=== PATIENT | male | born 1960 | race Caucasian/White ===

== ENCOUNTER 2022-05-20 08:45 | Outpatient (RCR) | payer OTHER, SELFPAY ==
[2022-04-29 09:48] VITALS: BP 153/79; PULSE 110; RESP 24; TEMP 36.6; BMI 53.6
--- NOTE | 2022-04-29 13:33 | PCM.WC.HP ---
History of Present Illness Date of Service: 04/29/22 Chief Complaint: Bilateral lower extremity ulcers History of Wound: Mr. Mayo is a 62-year-old who presents to the wound center due to nonhealing bilateral lower extremity ulcers. He states it started about 2 months ago. Chronic bilateral lower extremity swelling with difficulty wearing shoes and moving his lower extremities. Had some blister formation which subsequently opened up on rubbing from his shoes. Leg ulcer is said to have opened up on rubbing from his compression. Primary care physician had attempted care without any significant improvement. He denies any history of diabetes mellitus stating that his last A1c was in the fives. He sits for at least 10 hours at work taking short breaks. Currently at a BMI of 53.7. He denies chills, fever or otherwise feeling of unwell. [facility] Medical History (Updated 04/29/22 @ 13:[address] Glenys Choi MD) Atrial fibrillation Lymphedema Morbid obesity Ulcer of left foot with fat layer exposed Ulcer of left lower extremity with fat layer exposed Ulcer of right foot with fat layer exposed Ulcer of right lower extremity with fat layer exposed Home Medications calcium carb and citrat-mag ox tab PO 04/29/22 [History Last Taken Unknown] ferrous sulfate 325 mg PO DAILY 04/29/22 [History Last Taken Unknown] furosemide [Lasix] 40 mg PO DAILY 04/29/22 [History Last Taken Unknown] gabapentin 600 mg PO TID 04/29/22 [History Last Taken Unknown] naproxen 500 mg PO BID 04/29/22 [History Last Taken Unknown] potassium chloride 20 meq PO DAILY 04/29/22 [History Last Taken Unknown] sertraline mg BID 04/29/22 [History Last Taken Unknown] warfarin 5 mg PO DAILY 04/29/22 [History Last Taken Unknown] Allergy/AdvReac Type Severity Reaction Status Date / Time No Known Allergies Allergy Verified 04/29/22 10:34 Social History Smoking Status: Never smoker ROS Constitutional Constitutional: Denies fever(s), frequent falls, headache(s), increased appetite, lethargy or malaise Eyes Eyes: Denies exophthalmos, eye pain, floaters, foreign body, halo effect, irritation or itchy eyes ENT HEENT: Denies dysphagia, epistaxis, facial pain, foreign body in nose, halitosis, nasal congestion, nasal obstruction or nasal trauma Cardiovascular Cardiovascular: Denies chest pain at rest, clubbing, cold extremities, cyanosis, diaphoresis, dizziness or dyspnea at rest Respiratory/Chest Respiratory/Chest: Denies excessive phlegm production, hemoptysis, hoarseness, nail bed cyanosis, pain on inspiration, pain with cough, pale skin or ni-oral cyanosis Gastrointestinal Gastrointestinal: Denies chewing difficulty, coffee ground emesis, constipation, cramping, diarrhea or dry heaves Genitourinary Genitourinary: Denies abdominal discomfort, burning urination, flank pain, genital lesions or genital pain Musculoskeletal Musculoskeletal: Reports limited range of motion; Denies joint stiffness, joint swelling, loss of height, muscle cramps, muscle spasms or muscle weakness Integumentary Integumentary: Denies erythema, furuncle, hirsutism, jaundice, lesions, nail changes or new lesions Neurologic Neurologic: Denies burning sensations, confusion, convulsions, disequilibrium, dizziness, focal weakness, frequent falls, headache(s) or lack of coordination Psychiatric Psychiatric: Denies cognitive impairment, confusion, depression, difficulty concentrating, hallucinations, homicidal ideation, mood swings or panic attacks Endocrine Endocrinology: Denies excessive sweating, fatigue, flushing, heat intolerance, increase in ring/shoe/hat size, palpitations or polydipsia Hematologic/Lymphatic Hematologic/Lymphatic: Denies anemia, easy bleeding, easy bruising or lymphadenopathy Allergic/Immunologic Allergic/Immunologic: Denies tongue swelling, hives, urticaria, eczemia, wheezing or asthma Vital Signs Vital Signs Vital Signs: 04/29/22 09:48 Temperature 97.9 F Temperature Source Temporal Pulse Rate 110 H Respiratory Rate 24 H Blood Pressure 153/79 H Blood Pressure Mean 103 Blood Pressure Source Monitor Weight Weight: 450 lb 1.282 oz Body Mass Index (BMI) 53.6 Physical Exam Const alert, oriented x3 and no apparent distress General Appearance: cooperative, comfortable and well kempt HEENT normocephalic, head/scalp atraumatic and hearing grossly normal bilaterally Head and Scalp: normal to inspection, normocephalic and atraumatic Eyes EOMs intact bilaterally Neck full ROM General: normal visual inspection Resp normal respiratory effort and normal air movement Effort and Inspection: able to speak in complete sentences Extremity Extremity Narrative: Bilateral 3+ pitting edema. Skin Wounds: wounds noted Neuro oriented x3, CN's II-XII intact bilaterally and moves all extremities Psych mental status grossly normal, thought process normal, cooperative, affect normal and speech normal Debridement Note Debridement Note Wound debrided: Right dorsal foot Type of Debridement: Excisional debridement Anesthesia Used: 4% Lidocaine Solution Depth: Down to and including healthy tissue and in the subcutaneous layer Percentage of wound debrided: 100 Instrument Used: 5mm curette Tissue Removed: Slough and devitalized tissue Severity: Fat Layer Exposed Amount of bleeding with debridement: Mild Bleeding Controlled with: Pressure Patient tolerated procedure: Patient tolerated procedure well Post-Debridement Measurements and Additional Note: Post-Debridement Measurements/Treatment - Nurse 1 - General Ulcer Assessment Start: 04/29/22 09:39 Freq: Status: Active Protocol: KIMBERLYN Activity Type Activity Date Activity User E-Sign Co-Sign Detail Recorded Client Recorded Date Recorded By Document 04/29/22 09:48 DL [id number] 04/29/22 10:24 DL 04/29/22 09:48 WC - Today's Visit Information Type of service Initial Visit Arrival Mode Ambulatory, Walker Transfer Assistance None Patient Identification Verified (Name & Yes ) Patient Requires Transmission-Based Yes Precautions Safety Precautions Fall Prevention Height and Weight Height 6 ft 4.8 in Weight 450 lb 1.282 oz Weight in Pounds 450.1 lbs Weight Measurement Method Stated by Patient Body Mass Index (BMI) 53.6 BMI Classification Obese BSA - Lino 3.15 Vital Signs Temperature (97.8 F-99.1 F) 97.9 F Temperature Source Temporal Pulse Rate (60-100) 110 H Pulse Location Monitor Respiratory Rate (12-18) 24 H Respiratory rate source Observation Blood Pressure (90/60-120/80) 153/79 H Blood Pressure Mean 103 Source Monitor History Since Last Visit- (Skip if this is Patient's initial visit) Left Footwear Regular Shoe Right Footwear Regular Shoe Pain Scale: 0-10 Numeric Is Patient Pain Free? Yes Lower Extremity Assessment/ Foot Assessment/ Toe Nail Assessment Left -Polpliteal Pulses Palpable No -Popliteal Doppler Inaudible -Posterior Tibial Palpable No -Posterior Tibial Doppler Multiphasic -Extremity Color Hyperpigmented, Hemosiderin -Hair Growth on Legs No -Hair Growth on Toes No -Temperature of Extremity Warm -Capillary Refill Greater than 3 Seconds -Dependent Rubor Yes -Blanched when Elevated No -Lipodermatosclerosis No -Other Deformity No -Prior Foot Ulcer No -Charcot Joint Yes -Prior Amputation No -Thick Yes -Discolored No -Deformed No -Improper Length & Hygeine No Right -Polpliteal Pulses Palpable No -Popliteal Doppler Inaudible -Posterior Tibial Palpable No -Dorsalis Pedis Palpable No -Dorsalis Pedis Doppler Multiphasic -Extremity Color Red, Hyperpigmented -Hair Growth on Legs No -Hair Growth on Toes No -Temperature of Extremity Warm -Capillary Refill Greater than 3 Seconds -Dependent Rubor Yes -Blanched when Elevated No -Lipodermatosclerosis No -Other Deformity No -Prior Foot Ulcer No -Charcot Joint Yes -Prior Amputation No -Thick Yes -Discolored No -Deformed No -Improper Length & Hygeine Yes Neuropathy Assessment Feet - Top Side and Bottom <Entered> (a) Communication Assessment Preferred language Portuguese Armature [employer] Required No Able to Read Yes Able to Write Yes Communication Tools None Right Hearing Abillity Normal Left Hearing Abillity Normal Visual Assistive Devices Glasses Teaching Assessment Preferences Verbal,Written Barriers to Learning Decreased Motivation Readiness To Learn Fair Willingness to Engage in Self Management Med Activies Readiness to Engage in Self Management Med Activities Anxiety Level Calm Cooperation Cooperative Perception Coherent Interest in Health Problem Asks Questions Education Importance Acknowledges Need Does Patient Smoke tobacco or other No substances Smoking Status Never smoker Is Patient Diabetic Yes Functional Assessment Recent Decline in Ability to Perform Ambulation Culture/Evangelical/Wireless Sales Associate Cultural/Evangelical Needs that may affect No Treatment Plan Would you allow our hospital stacking machine operator to No meet you for the purpose of spiritual/ emotional support? Wireless Sales Associate to contact place of jehovah's witness No Teaching: Wound Center Diagnostic Tests Ordered -Person Taught Patient Dressing Your Wound -Person Taught Patient Compression Wraps & Stockings -Person Taught Patient *Welcome to the Wound Center -Person Taught Patient (a) 1 - + WC - Nurse 1 - General Ulcer Measurement Start: 04/29/22 09:39 Freq: Status: Active Protocol: Activity Type Activity Date Activity User E-Sign Co-Sign Detail Recorded Client Recorded Date Recorded By Document 04/29/22 09:48 DL [id number] 04/29/22 10:24 DL 04/29/22 09:48 Wound Center Nurse 1 #5 Left medial LE -Combined with other wound No -Current Size (cm) - Length 15 -Current Size (cm) - Width 14.8 -Current Size (cm) - Depth 0.1 -Total Square Cm 222.0 -Photo Taken Yes -Exudate Amt Large -Exudate Type Serosanguineous -Wound Margin Distinct, Outline Attached -Granulation Amt Medium (34-66%) -Granulation Quality Red -Necrosis Amt Medium (34-66%) -Necrotic Tissue Type Adherent Slough -Structure Exposed N/A -Texture (Ni-wound Skin Appearance) Localized Edema ,Scarring -Moisture (Ni-wound Skin Appearance) Weeping -Color (Ni-wound Skin Appearance) Erythema, Hemosiderin Staining -Temperature (Ni-wound Skin No Abnormality Appearance) (Pt Warm) -Tenderness on Palpation (Ni-wound Yes Skin Appearance) -Ulcer Cleansing Soap and Water -Foul Odor after Cleansing No -Anesthetic Used 5% Lidocaine Gel #4 L dorsal foot -Current Size (cm) - Length 1.8 -Current Size (cm) - Width 2 -Current Size (cm) - Depth 0.2 -Total Square Cm 3.6 -Photo Taken Yes -Exudate Amt Small -Exudate Type Serosanguineous -Wound Margin Distinct, Outline Attached -Granulation Amt Medium (34-66%) -Granulation Quality Red -Necrosis Amt Medium (34-66%) -Necrotic Tissue Type Adherent Slough -Structure Exposed N/A -Texture (Ni-wound Skin Appearance) Localized Edema ,Scarring -Moisture (Ni-wound Skin Appearance) Weeping -Color (Ni-wound Skin Appearance) Erythema -Temperature (Ni-wound Skin No Abnormality Appearance) (Pt Warm) -Tenderness on Palpation (Ni-wound No Skin Appearance) -Ulcer Cleansing Soap and Water -Foul Odor after Cleansing No -Anesthetic Used 4% Lidocaine Solution #3 R dorsal foot -Current Size (cm) - Length 2 -Current Size (cm) - Width 2.5 -Current Size (cm) - Depth 0.1 -Total Square Cm 5.0 -Photo Taken Yes -Exudate Amt Medium -Wound Margin Distinct, Outline Attached -Granulation Amt Medium (34-66%) -Granulation Quality Red -Necrosis Amt Medium (34-66%) -Necrotic Tissue Type Adherent Slough -Structure Exposed N/A -Texture (Ni-wound Skin Appearance) Localized Edema ,Scarring -Moisture (Ni-wound Skin Appearance) Weeping -Color (Ni-wound Skin Appearance) Erythema, Hemosiderin Staining -Temperature (Ni-wound Skin No Abnormality Appearance) (Pt Warm) -Tenderness on Palpation (Ni-wound No Skin Appearance) -Ulcer Cleansing Soap and Water -Foul Odor after Cleansing No -Anesthetic Used 4% Lidocaine Solution # R Lat LE Cluster -Current Size (cm) - Length 11.5 -Current Size (cm) - Width 6.5 -Current Size (cm) - Depth 0.1 -Total Square Cm 74.75 -Photo Taken Yes -Exudate Amt Medium -Exudate Type Serosanguineous -Wound Margin Distinct, Outline Attached -Granulation Amt Medium (34-66%) -Granulation Quality Red -Necrosis Amt Medium (34-66%) -Necrotic Tissue Type Adherent Slough -Structure Exposed N/A -Texture (Ni-wound Skin Appearance) Localized Edema ,Scarring -Moisture (Ni-wound Skin Appearance) Weeping -Color (Ni-wound Skin Appearance) Erythema, Hemosiderin Staining -Temperature (Ni-wound Skin No Abnormality Appearance) (Pt Warm) -Tenderness on Palpation (Ni-wound No Skin Appearance) -Ulcer Cleansing Soap and Water -Foul Odor after Cleansing No -Anesthetic Used 4% Lidocaine Solution #1 R giordano Med -Current Size (cm) - Length 3.3 -Current Size (cm) - Width 6.5 -Current Size (cm) - Depth 0.1 -Total Square Cm 21.45 -Photo Taken Yes -Exudate Amt Medium -Exudate Type Serosanguineous -Wound Margin Distinct, Outline Attached -Granulation Amt Medium (34-66%) -Granulation Quality Red -Necrosis Amt Medium (34-66%) -Necrotic Tissue Type Adherent Slough -Structure Exposed N/A -Texture (Ni-wound Skin Appearance) Localized Edema ,Scarring -Moisture (Ni-wound Skin Appearance) Weeping -Color (Ni-wound Skin Appearance) Erythema, Hemosiderin Staining -Temperature (Ni-wound Skin No Abnormality Appearance) (Pt Warm) -Tenderness on Palpation (Ni-wound Yes Skin Appearance) -Ulcer Cleansing Soap and Water -Foul Odor after Cleansing No -Anesthetic Used 4% Lidocaine Solution Right Calf (cm) 72 Right Ankle (cm) 45.5 Left Calf (cm) 76.6 Left Ankle (cm) 49.4 WC - Nurse 2 - General Ulcer CM Notes Start: 04/29/22 09:39 Freq: Status: Active Protocol: Activity Type Activity Date Activity User E-Sign Co-Sign Detail Recorded Client Recorded Date Recorded By Document 04/29/22 10:47 MW [id number] 04/29/22 11:04 MW Edit Result 04/29/22 10:47 MW (1) [id number] 04/29/22 11:04 MW (1) #5 Left medial LE - Debridement, SubQ, ea addt'l 20sq cm 8 => 18 or part thereof 04/29/22 10:47 Wound Center Nurse 2 #5 Left medial LE -Time 10:49 -Correct Patient Yes -Correct Side, Site, Position Yes -Correct Procedure Yes -Procedure Performed Yes -Type of Procedure Debridement -Clinical Debridement Subcutaneous -Tissue Removed Subcutaneous -Post Debridement (cm) - Length 11.5 -Post Debridement (cm) - Width 15.0 -Post Debridement (cm) - Depth 0.1 -Total Square (Post) (cm) 172.50 -Area of Debridement (cm) - Length 11.5 -Area of Debridement (cm) - Width 15.0 -Total Square (Area) (cm) 172.50 -Tunneling No -Undermining/Tunneling No -Circular Undermining No -Wound/Ulcer Outcome Not Healed -Ulcer Cleansing Rinsed/ Irrigated with Saline -Foul Odor after Cleansing No -Bioengineered Tissue No -Bleeding Controlled with Pressure -Treatment Response Procedure Tolerated Well -Offloading No -Debridement - Subq, 1st 20sq cm Yes -Debridement, SubQ, ea addt'l 20sq cm 18 or part thereof #4 L dorsal foot -Time 10:50 -Correct Patient Yes -Correct Side, Site, Position Yes -Correct Procedure Yes -Procedure Performed Yes -Type of Procedure Debridement -Clinical Debridement Subcutaneous -Tissue Removed Subcutaneous -Post Debridement (cm) - Length 1.5 -Post Debridement (cm) - Width 2.3 -Post Debridement (cm) - Depth 0.2 -Total Square (Post) (cm) 3.45 -Area of Debridement (cm) - Length 1.5 -Area of Debridement (cm) - Width 2.3 -Total Square (Area) (cm) 3.45 -Tunneling No -Undermining/Tunneling No -Circular Undermining No -Wound/Ulcer Outcome Not Healed -Ulcer Cleansing Rinsed/ Irrigated with Saline -Foul Odor after Cleansing No -Bioengineered Tissue No -Bleeding Controlled with Pressure -Treatment Response Procedure Tolerated Well -Offloading No -Debridement - Subq, 1st 20sq cm No #3 R dorsal foot -Time 10:50 -Correct Patient Yes -Correct Side, Site, Position Yes -Correct Procedure Yes -Procedure Performed Yes -Type of Procedure Debridement -Clinical Debridement Subcutaneous -Tissue Removed Subcutaneous -Post Debridement (cm) - Length 2.0 -Post Debridement (cm) - Width 3.0 -Post Debridement (cm) - Depth 0.2 -Total Square (Post) (cm) 6.00 -Area of Debridement (cm) - Length 2.0 -Area of Debridement (cm) - Width 3.0 -Total Square (Area) (cm) 6.00 -Tunneling No -Undermining/Tunneling No -Circular Undermining No -Wound/Ulcer Outcome Not Healed -Ulcer Cleansing Rinsed/ Irrigated with Saline -Foul Odor after Cleansing No -Bioengineered Tissue No -Bleeding Controlled with Pressure -Treatment Response Procedure Tolerated Well -Offloading No -Debridement - Subq, 20sq cm No # R Lat LE Cluster -Time 10:50 -Correct Patient Yes -Correct Side, Site, Position Yes -Correct Procedure Yes -Procedure Performed Yes -Type of Procedure Debridement -Clinical Debridement Subcutaneous -Tissue Removed Subcutaneous -Post Debridement (cm) - Length 12.0 -Post Debridement (cm) - Width 7.0 -Post Debridement (cm) - Depth 0.1 -Total Square (Post) (cm) 84.00 -Area of Debridement (cm) - Length 12.0 -Area of Debridement (cm) - Width 7.0 -Total Square (Area) (cm) 84.00 -Tunneling No -Undermining/Tunneling No -Circular Undermining No -Wound/Ulcer Outcome Not Healed -Ulcer Cleansing Rinsed/ Irrigated with Saline -Foul Odor after Cleansing No -Bioengineered Tissue No -Bleeding Controlled with Pressure -Treatment Response Procedure Tolerated Well -Offloading No -Debridement - Subq, 1st 20sq cm No #1 R giordano Med -Time 10:51 -Correct Patient Yes -Correct Side, Site, Position Yes -Correct Procedure Yes -Procedure Performed Yes -Type of Procedure Debridement -Clinical Debridement Subcutaneous -Tissue Removed Subcutaneous -Post Debridement (cm) - Length 7.0 -Post Debridement (cm) - Width 16.0 -Post Debridement (cm) - Depth 0.1 -Total Square (Post) (cm) 112.00 -Area of Debridement (cm) - Length 7.0 -Area of Debridement (cm) - Width 16.0 -Total Square (Area) (cm) 112.00 -Tunneling No -Undermining/Tunneling No -Circular Undermining No -Wound/Ulcer Outcome Not Healed -Ulcer Cleansing Rinsed/ Irrigated with Saline -Foul Odor after Cleansing No -Bioengineered Tissue No -Bleeding Controlled with Pressure -Treatment Response Procedure Tolerated Well -Offloading No -Debridement - Subq, 1st 20sq cm No Pain Scale: 0-10 Numeric Is Patient Pain Free? Yes WC - Nurse 3 - General Ulcer D/C NN Start: 04/29/22 09:39 Freq: Status: Active Protocol: Activity Type Activity Date Activity User E-Sign Co-Sign Detail Recorded Client Recorded Date Recorded By Document 04/29/22 11:10 [facility] [id number] 04/29/22 11:16 [facility] 04/29/22 11:10 Wound Care Nurse 3 #5 Left medial LE -Ulcer Cleansing Soap and Water -Foul Odor after Cleansing No -Primary Dressing Applied Aquacel Extra, Optilok 8x12 -Other Covering unna boot per rb rn -Aquacel Extra 2 -Optilok 8x12 1 #4 L dorsal foot -Ulcer Cleansing Soap and Water -Foul Odor after Cleansing No -Primary Dressing Applied Aquacel Extra, Optilok 6.5x10 -Other Dressing unna boot per rb rn -Aquacel Extra 0 -Optilok 6.5x10 1 #3 R dorsal foot -Ulcer Cleansing Soap and Water -Foul Odor after Cleansing No -Primary Dressing Applied Aquacel Extra -Other Dressing unna boot per rb rn -Aquacel Extra 0 # R Lat LE Cluster -Ulcer Cleansing Soap and Water -Foul Odor after Cleansing No -Primary Dressing Applied Aquacel Extra, Optilok 8x12 -Other Dressing unna boot per rb rn -Aquacel Extra 0 -Optilok 8x12 1 #1 R giordano Med -Ulcer Cleansing Soap and Water -Foul Odor after Cleansing No -Primary Dressing Applied Aquacel Extra -Other Dressing unna boot per rb rn -Aquacel Extra 0 LLE -Multi-Layered Wrap Application Unna Boot - Bilateral ($) -Unna Boots (Bilat) ($) 2 -Other XL LEGS-USED DOUBLE UNNA PRODUCT RLE -Multi-Layered Wrap Application Unna Boot - Bilateral ($) -Unna Boots (Bilat) ($) 2 -Other XL LEGS-USED DOUBLE THE PRODUCT/UNNA Pain Scale: 0-10 Numeric Is Patient Pain Free? Yes WC - Visit Discharge Discharge Condition Stable Ambulatory Status Ambulatory, Walker Accompanied by NICK WALKER Additional Wound Wound debrided: Right lower extremity lateral cluster Type of Debridement: Excisional debridement Anesthesia Used: 4% Lidocaine Solution Depth: Down to and including healthy tissue and in the subcutaneous layer Percentage of wound debrided: 100 Instrument Used: 5mm curette Tissue Removed: Slough and devitalized tissue Severity: Fat Layer Exposed Amount of bleeding with debridement: Mild Bleeding Controlled with: Pressure Patient tolerated procedure: Patient tolerated procedure well Additional Wound Wound debrided: Right lower extremity medial cluster Type of Debridement: Excisional debridement Anesthesia Used: 4% Lidocaine Solution Depth: Down to and including healthy tissue and in the subcutaneous layer Percentage of wound debrided: 100 Instrument Used: 5mm curette Tissue Removed: Slough and devitalized tissue Severity: Fat Layer Exposed Amount of bleeding with debridement: Mild Bleeding Controlled with: Pressure Patient tolerated procedure: Patient tolerated procedure well Additional Wound Wound debrided: Left foot dorsum Type of Debridement: Excisional debridement Anesthesia Used: 4% Lidocaine Solution Depth: Down to and including healthy tissue and in the subcutaneous layer Percentage of wound debrided: 100 Instrument Used: 5mm curette Tissue Removed: Slough and devitalized tissue Severity: Fat Layer Exposed Amount of bleeding with debridement: Mild Bleeding Controlled with: Pressure Patient tolerated procedure: Patient tolerated procedure well Additional Wound Wound debrided: Left lower extremity cluster Type of Debridement: Excisional debridement Anesthesia Used: 4% Lidocaine Solution Depth: Down to and including healthy tissue and in the subcutaneous layer Percentage of wound debrided: 100 Instrument Used: 5mm curette Tissue Removed: Slough and devitalized tissue Amount of bleeding with debridement: Mild Bleeding Controlled with: Pressure Patient tolerated procedure: Patient tolerated procedure well Charges/Coding Visit Charges Office Visits / Consults: 21843 OV L3 New Multi Select Codes Visit Charges Office Visit/Consults: 09570 OV L3 New Integumentary Integumentary CPT Codes: 36457 January subq tissue 20 sq cm/< and Other Procedure See Report (Add on code. Additional 18 Sq Cm debrided. Please refer to clinical note.) Assessment/Plan Assessment/Plan (1) Ulcer of left lower extremity with fat layer exposed: CODE(S): L97.922 - Non-pressure chronic ulcer of unspecified part of left lower leg with fat layer exposed (2) Ulcer of right lower extremity with fat layer exposed: CODE(S): L97.912 - Non-pressure chronic ulcer of unspecified part of right lower leg with fat layer exposed (3) Ulcer of left foot with fat layer exposed: CODE(S): L97.522 - Non-pressure chronic ulcer of other part of left foot with fat layer exposed (4) Ulcer of right foot with fat layer exposed: CODE(S): L97.512 - Non-pressure chronic ulcer of other part of right foot with fat layer exposed (5) Morbid obesity: CODE(S): E66.01 - Morbid (severe) obesity due to excess calories (6) Atrial fibrillation: CODE(S): I48.91 - Unspecified atrial fibrillation (7) Lymphedema: CODE(S): I89.0 - Lymphedema, not elsewhere classified PLAN: Chronic bilateral lower extremity edema/lymphedema. Likely source of his ulcerations. Significant drainage. Debridement done as documented above, procedure was well-tolerated. Aquacel to open areas and then Unna boot for compression. Come in on Tuesday for a nurse visit. Job modification discussed, sitting for 10 hours not beneficial. He was advised to look into a standing desk, taking multiple breaks and elevating his lower extremities when seated, he voiced understanding. Exercise as tolerated and weight loss. As above, no documented history of diabetes mellitus. Optimal protein intake which he states that he already does. Vitamin C, D and zinc. His questions were answered and he was advised to call with any further questions or concerns. Follow-up on Tuesday for a nurse visit with me in 1 week. This note was generated with [employer]ok[employer] software. It may contain incorrect words, spelling, and punctuation that were not noted in checking the note before signing.
[2022-05-03 15:26] VITALS: BP 140/87; PULSE 75; TEMP 36.1; BMI 53.6
[2022-05-06 10:29] VITALS: BP 158/102; PULSE 112; RESP 16; TEMP 36.2; BMI 53.6
--- NOTE | 2022-05-06 11:57 | PCM.WC.PN ---
History of Present Illness Date of Service: 05/06/22 Chief Complaint: Bilateral lower extremity ulcers History of Wound: Mr. Mayo is a 62-year-old who presents to the wound center due to nonhealing bilateral lower extremity ulcers. He states it started about 2 months ago. Chronic bilateral lower extremity swelling with difficulty wearing shoes and moving his lower extremities. Had some blister formation which subsequently opened up on rubbing from his shoes. Leg ulcer is said to have opened up on rubbing from his compression. Primary care physician had attempted care without any significant improvement. He denies any history of diabetes mellitus stating that his last A1c was in the fives. He sits for at least 10 hours at work taking short breaks. Currently at a BMI of 53.7. He denies chills, fever or otherwise feeling of unwell. Progress of Wound: Still has significant edema. Some improvement in wound size but some crusting also noted as well. Has used Aquacel and Unaboot. Subjective Subjective No acute concerns at this time. Objective Data Objective Data Vital Signs: Vital Signs Temp Pulse Resp BP 97.2 F L 112 H 16 158/102 H 05/06/22 10:29 05/06/22 10:29 05/06/22 10:29 05/06/22 10:29 Oxygen Delivery Method Room Air Weight: 450 lb 1.282 oz Body Mass Index (BMI) 53.6 Lab / Micro Data Micro: Microbiology 04/29/22 10:55 Wound Abcess - Left Foot Gram Stain - Final 04/29/22 10:55 Wound Abcess - Left Foot Wound Culture - Final Staphylococcus cohnii urealyti Streptococcus dysgalactiae equ Staphylococcus epidermidis 04/29/22 10:55 Wound Abcess - Left Foot Anaerobic Culture - Final No anaerobic bacteria isolated. Charges/Coding Procedures Integumentary 111xxx-113xx: [id number] January subq tissue 20 sq cm/< Add On Codes: 96110 January subq tissue add-on (x13. Additional square centimeter debrided, please refer to clinical note) Physical Exam Const alert, oriented x3 and no apparent distress General Appearance: cooperative, comfortable and well kempt HEENT normocephalic, head/scalp atraumatic and hearing grossly normal bilaterally Head and Scalp: normal to inspection, normocephalic and atraumatic Eyes EOMs intact bilaterally Neck full ROM General: normal visual inspection Resp normal respiratory effort Effort and Inspection: able to speak in complete sentences Extremity Extremity Narrative: Bilateral 3+ pitting edema. Skin Wounds: wounds noted Neuro oriented x3, CN's II-XII intact bilaterally and moves all extremities Psych mental status grossly normal, thought process normal, cooperative, affect normal and speech normal Debridement Note Debridement Note Wound debrided: Right dorsal foot Type of Debridement: Excisional debridement Anesthesia Used: 4% Lidocaine Solution Depth: Down to and including healthy tissue and in the subcutaneous layer Percentage of wound debrided: 100 Instrument Used: 5mm curette Tissue Removed: Slough and devitalized tissue Severity: Fat Layer Exposed Amount of bleeding with debridement: Mild Bleeding Controlled with: Pressure Patient tolerated procedure: Patient tolerated procedure well Post-Debridement Measurements and Additional Note: Post-Debridement Measurements/Treatment - Nurse 1 - General Ulcer Assessment Start: 04/29/22 09:39 Freq: Status: Active Protocol: KIMBERLYN Activity Type Activity Date Activity User E-sign Co-sign Detail Recorded Client Recorded Date Recorded By Document 04/29/22 09:48 DL [id number] 04/29/22 10:24 DL Document 05/03/22 15:26 KR [id number] 05/03/22 15:27 KR Document 05/06/22 10:29 AK [id number] 05/06/22 10:44 AK 04/29/22 05/03/22 05/06/22 09:48 15:26 10:29 - Today's Visit Information Type of service Initial Visit Nurse-only 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-up Visit 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 ) Arrival Mode Ambulatory, Ambulatory,Cane Ambulatory, Walker Walker Transfer Assistance None None Patient Identification Verified (Name & Yes Yes Yes ) Patient Requires Transmission-Based Yes No Precautions Safety Precautions Fall Prevention Height and Weight Height 6 ft 4.8 in Weight 450 lb 1.282 oz Weight in Pounds 450.1 lbs Weight Measurement Method Stated by Patient Body Mass Index (BMI) 53.6 53.6 53.6 BMI Classification Obese Obese Obese BSA - Lino 3.15 Vital Signs Temperature (97.8 F-99.1 F) 97.9 F 97.0 F L 97.2 F L Temperature Source Temporal Temporal Temporal Pulse Rate (60-100) 110 H 75 112 H Pulse Location Monitor Monitor Monitor Respiratory Rate (12-18) 24 H 16 Respiratory rate source Observation Observation Oxygen Delivery Method Room Air Blood Pressure (90/60-120/80) 153/79 H 140/87 H 158/102 H Blood Pressure Mean (mm Hg) 103 104 120 Source Monitor Monitor Monitor Position Semi-Fowlers Sitting Blood Pressure Location Right Arm History Since Last Visit- (Skip if this is Patient's initial visit) Have you changed medications since your No No last visit? Any new allergies or adverse reactions No No Had a fall/change in ADL's that may No No increase risk of falls Signs or symptoms of abuse and/or No No neglect since last visit Have you been in the hospital since your No No last visit? Has dressing in place as prescribed Yes No Has compression in place as prescribed Yes No Has offloadiing in place as prescribed N/A N/A Experienced any changes in pain level or No No management Left Footwear Regular Shoe Regular Shoe Regular Shoe Right Footwear Regular Shoe Regular Shoe Regular Shoe Other Footwear removed unnas to shower prior to visit Pain Scale: 0-10 Numeric Is Patient Pain Free? Yes Yes Yes Lower Extremity Assessment/ Foot Assessment/ Toe Nail Assessment Left -Polpliteal Pulses Palpable No -Popliteal Doppler Inaudible -Posterior Tibial Palpable No -Posterior Tibial Doppler Multiphasic -Extremity Color Hyperpigmented, Hemosiderin -Hair Growth on Legs No -Hair Growth on Toes No -Temperature of Extremity Warm -Capillary Refill Greater than 3 Seconds -Dependent Rubor Yes -Blanched when Elevated No -Lipodermatosclerosis No -Other Deformity No -Prior Foot Ulcer No -Charcot Joint Yes -Prior Amputation No -Thick Yes -Discolored No -Deformed No -Improper Length & Hygeine No Right -Polpliteal Pulses Palpable No -Popliteal Doppler Inaudible -Posterior Tibial Palpable No -Dorsalis Pedis Palpable No -Dorsalis Pedis Doppler Multiphasic -Extremity Color Red, Hyperpigmented -Hair Growth on Legs No -Hair Growth on Toes No -Temperature of Extremity Warm -Capillary Refill Greater than 3 Seconds -Dependent Rubor Yes -Blanched when Elevated No -Lipodermatosclerosis No -Other Deformity No -Prior Foot Ulcer No -Charcot Joint Yes -Prior Amputation No -Thick Yes -Discolored No -Deformed No -Improper Length & Hygeine Yes Neuropathy Assessment Feet - Top Side and Bottom <Entered> (a) Communication Assessment Preferred language Kiswahili Sound Effects Manager Required No Able to Read Yes Able to Write Yes Communication Tools None Right Hearing Abillity Normal Left Hearing Abillity Normal Visual Assistive Devices Glasses Teaching Assessment Preferences Verbal,Written Barriers to Learning Decreased Motivation Readiness To Learn Fair Willingness to Engage in Self Management Med Activies Readiness to Engage in Self Management Med Activities Anxiety Level Calm Cooperation Cooperative Perception Coherent Interest in Health Problem Asks Questions Education Importance Acknowledges Need Does Patient Smoke tobacco or other No substances Smoking Status Never smoker Is Patient Diabetic Yes Functional Assessment Recent Decline in Ability to Perform Ambulation 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 Pipe Setter to contact place of evangelical No Teaching: Wound Center Diagnostic Tests Ordered -Person Taught Patient Dressing Your Wound -Person Taught Patient Compression Wraps & Stockings -Person Taught Patient *Welcome to the Wound Center -Person Taught Patient (a) 1 - + WC - Nurse 1 - General Ulcer Measurement Start: 04/29/22 09:39 Freq: Status: Active Protocol: Activity Type Activity Date Activity User E-sign Co-sign Detail Recorded Client Recorded Date Recorded By Document 04/29/22 09:48 DL [id number] 04/29/22 10:24 DL Document 05/06/22 10:29 [place] [id number] 05/06/22 10:44 AK 04/29/22 05/06/22 09:48 10:29 Wound Center Nurse 1 #5 Left medial LE -Combined with other wound No No -Current Size (cm) - Length 15 14 -Current Size (cm) - Width 14.8 14 -Current Size (cm) - Depth 0.1 0.1 -Total Square Cm 222.0 196 -Photo Taken Yes No -Epithelialization None Present -Tunneling No -Undermining/Tunneling No -Circular Undermining No -Exudate Amt Large Medium -Exudate Type Serosanguineous Serosanguineous -Wound Margin Distinct, Distinct, Outline Outline Attached Attached -Granulation Amt Medium (34-66%) None Present (0 %) -Granulation Quality Red -Slough/Fibrin Yes -Necrosis Amt Medium (34-66%) Large (67-100%) -Necrotic Tissue Type Adherent Slough Adherent Slough -Structure Exposed N/A -Texture (Ni-wound Skin Appearance) Localized Edema Assessed, ,Scarring Scarring -Moisture (Ni-wound Skin Appearance) Weeping Assessed -Color (Ni-wound Skin Appearance) Erythema, Assessed, Hemosiderin Erythema Staining -Temperature (Ni-wound Skin No Abnormality No Abnormality Appearance) (Pt Warm) (Pt Warm) -Tenderness on Palpation (Ni-wound Yes No Skin Appearance) -Ulcer Cleansing Soap and Water Soap and Water -Foul Odor after Cleansing No No -Anesthetic Used 5% Lidocaine 4% Lidocaine Gel Solution #4 L dorsal foot -Combined with other wound No -Current Size (cm) - Length 1.8 1.4 -Current Size (cm) - Width 2 1.6 -Current Size (cm) - Depth 0.2 0.2 -Total Square Cm 3.6 2.24 -Photo Taken Yes No -Epithelialization None Present -Tunneling No -Undermining/Tunneling No -Circular Undermining No -Exudate Amt Small Medium -Exudate Type Serosanguineous Serosanguineous -Wound Margin Distinct, Distinct, Outline Outline Attached Attached -Granulation Amt Medium (34-66%) Medium (34-66%) -Granulation Quality Red Red -Slough/Fibrin Yes -Necrosis Amt Medium (34-66%) Medium (34-66%) -Necrotic Tissue Type Adherent Slough Adherent Slough -Structure Exposed N/A -Texture (Ni-wound Skin Appearance) Localized Edema Assessed, ,Scarring Scarring -Moisture (Ni-wound Skin Appearance) Weeping Assessed -Color (Ni-wound Skin Appearance) Erythema Assessed, Erythema -Temperature (Ni-wound Skin No Abnormality No Abnormality Appearance) (Pt Warm) (Pt Warm) -Tenderness on Palpation (Ni-wound No No Skin Appearance) -Ulcer Cleansing Soap and Water Soap and Water -Foul Odor after Cleansing No No -Anesthetic Used 4% Lidocaine 4% Lidocaine Solution Solution #3 R dorsal foot -Combined with other wound No -Current Size (cm) - Length 2 1.5 -Current Size (cm) - Width 2.5 2 -Current Size (cm) - Depth 0.1 0.1 -Total Square Cm 5.0 3.0 -Photo Taken Yes No -Epithelialization Small 1-33% -Tunneling No -Undermining/Tunneling No -Circular Undermining No -Exudate Amt Medium Medium -Exudate Type Serosanguineous -Wound Margin Distinct, Distinct, Outline Outline Attached Attached -Granulation Amt Medium (34-66%) Medium (34-66%) -Granulation Quality Red Red -Slough/Fibrin Yes -Necrosis Amt Medium (34-66%) Medium (34-66%) -Necrotic Tissue Type Adherent Slough Adherent Slough -Structure Exposed N/A -Texture (Ni-wound Skin Appearance) Localized Edema Assessed, ,Scarring Scarring -Moisture (Ni-wound Skin Appearance) Weeping Assessed -Color (Ni-wound Skin Appearance) Erythema, Assessed, Hemosiderin Erythema Staining -Temperature (Ni-wound Skin No Abnormality No Abnormality Appearance) (Pt Warm) (Pt Warm) -Tenderness on Palpation (Ni-wound No No Skin Appearance) -Ulcer Cleansing Soap and Water Not Cleansed -Foul Odor after Cleansing No No -Anesthetic Used 4% Lidocaine 4% Lidocaine Solution Solution #2 R Lat LE Cluster -Combined with other wound No -Current Size (cm) - Length 11.5 11.4 -Current Size (cm) - Width 6.5 1.5 -Current Size (cm) - Depth 0.1 0.1 -Total Square Cm 74.75 17.10 -Photo Taken Yes No -Epithelialization None Present -Tunneling No -Undermining/Tunneling No -Circular Undermining No -Exudate Amt Medium None Present -Exudate Type Serosanguineous -Wound Margin Distinct, Distinct, Outline Outline Attached Attached -Granulation Amt Medium (34-66%) None Present (0 %) -Granulation Quality Red -Slough/Fibrin Yes -Necrosis Amt Medium (34-66%) Large (67-100%) -Necrotic Tissue Type Adherent Slough Eschar -Structure Exposed N/A -Texture (Ni-wound Skin Appearance) Localized Edema Assessed, ,Scarring Scarring -Moisture (Ni-wound Skin Appearance) Weeping Assessed -Color (Ni-wound Skin Appearance) Erythema, Assessed Hemosiderin Staining -Temperature (Ni-wound Skin No Abnormality No Abnormality Appearance) (Pt Warm) (Pt Warm) -Tenderness on Palpation (Ni-wound No No Skin Appearance) -Ulcer Cleansing Soap and Water Soap and Water -Foul Odor after Cleansing No No -Anesthetic Used 4% Lidocaine 4% Lidocaine Solution Solution #1 R giordano Med -Combined with other wound No -Current Size (cm) - Length 3.3 2.5 -Current Size (cm) - Width 6.5 5.4 -Current Size (cm) - Depth 0.1 0.1 -Total Square Cm 21.45 13.50 -Photo Taken Yes No -Epithelialization None Present -Tunneling No -Undermining/Tunneling No -Circular Undermining No -Exudate Amt Medium Medium -Exudate Type Serosanguineous Serosanguineous -Wound Margin Distinct, Distinct, Outline Outline Attached Attached -Granulation Amt Medium (34-66%) Medium (34-66%) -Granulation Quality Red Red -Slough/Fibrin Yes -Necrosis Amt Medium (34-66%) Medium (34-66%) -Necrotic Tissue Type Adherent Slough Adherent Slough -Structure Exposed N/A -Texture (Ni-wound Skin Appearance) Localized Edema Assessed, ,Scarring Scarring -Moisture (Ni-wound Skin Appearance) Weeping Assessed -Color (Ni-wound Skin Appearance) Erythema, Assessed, Hemosiderin Erythema Staining -Temperature (Ni-wound Skin No Abnormality No Abnormality Appearance) (Pt Warm) (Pt Warm) -Tenderness on Palpation (Ni-wound Yes No Skin Appearance) -Ulcer Cleansing Soap and Water Soap and Water -Foul Odor after Cleansing No No -Anesthetic Used 4% Lidocaine 4% Lidocaine Solution Solution Lower Limb Edema Present Yes Right Calf (cm) 72 72 Right Ankle (cm) 45.5 42 Left Calf (cm) 76.6 74 Left Ankle (cm) 49.4 49 WC - Nurse 2 - General Ulcer CM Notes Start: 04/29/22 09:39 Freq: Status: Active Protocol: Activity Type Activity Date Activity User E-sign Co-sign Detail Recorded Client Recorded Date Recorded By Document 04/29/22 10:47 MW [id number] 04/29/22 11:04 MW Edit Result 04/29/22 10:47 MW (1) [id number] 04/29/22 11:04 MW Document 05/06/22 10:49 MW [id number] 05/06/22 11:09 MW (1) #5 Left medial LE - Debridement, SubQ, ea addt'l 20sq cm 8 => 18 or part thereof 06 06 10:47 10:49 Wound Center Nurse 2 #5 Left medial LE -Time 10:49 10:51 -Correct Patient Yes Yes -Correct Side, Site, Position Yes Yes -Correct Procedure Yes Yes -Procedure Performed Yes Yes -Type of Procedure Debridement Debridement -Clinical Debridement Subcutaneous Subcutaneous -Tissue Removed Subcutaneous Subcutaneous -Post Debridement (cm) - Length 11.5 11.0 -Post Debridement (cm) - Width 15.0 15.0 -Post Debridement (cm) - Depth 0.1 0.1 -Total Square (Post) (cm) 172.50 165.00 -Area of Debridement (cm) - Length 11.5 11.0 -Area of Debridement (cm) - Width 15.0 15.0 -Total Square (Area) (cm) 172.50 165.00 -Tunneling No No -Undermining/Tunneling No No -Circular Undermining No No -Wound/Ulcer Outcome Not Healed Not Healed -Ulcer Cleansing Rinsed/ Rinsed/ Irrigated with Irrigated with Saline Saline -Foul Odor after Cleansing No No -Bioengineered Tissue No No -Bleeding Controlled with Pressure Pressure -Treatment Response Procedure Procedure Tolerated Well Tolerated Well -Offloading No No -Debridement - Subq, 1st 20sq cm Yes Yes -Debridement, SubQ, ea addt'l 20sq cm 18 13 or part thereof #4 L dorsal foot -Time 10:50 10:52 -Correct Patient Yes Yes -Correct Side, Site, Position Yes Yes -Correct Procedure Yes Yes -Procedure Performed Yes Yes -Type of Procedure Debridement Debridement -Clinical Debridement Subcutaneous Subcutaneous -Tissue Removed Subcutaneous Subcutaneous -Post Debridement (cm) - Length 1.5 2.1 -Post Debridement (cm) - Width 2.3 1.5 -Post Debridement (cm) - Depth 0.2 0.1 -Total Square (Post) (cm) 3.45 3.15 -Area of Debridement (cm) - Length 1.5 2.1 -Area of Debridement (cm) - Width 2.3 1.5 -Total Square (Area) (cm) 3.45 3.15 -Tunneling No No -Undermining/Tunneling No No -Circular Undermining No No -Wound/Ulcer Outcome Not Healed Not Healed -Ulcer Cleansing Rinsed/ Rinsed/ Irrigated with Irrigated with Saline Saline -Foul Odor after Cleansing No No -Bioengineered Tissue No No -Bleeding Controlled with Pressure Pressure -Treatment Response Procedure Procedure Tolerated Well Tolerated Well -Offloading No No -Debridement - Subq, 1st 20sq cm No No #3 R dorsal foot -Time 10:50 10:52 -Correct Patient Yes Yes -Correct Side, Site, Position Yes Yes -Correct Procedure Yes Yes -Procedure Performed Yes Yes -Type of Procedure Debridement Debridement -Clinical Debridement Subcutaneous Subcutaneous -Tissue Removed Subcutaneous Subcutaneous -Post Debridement (cm) - Length 2.0 1.8 -Post Debridement (cm) - Width 3.0 2.4 -Post Debridement (cm) - Depth 0.2 0.1 -Total Square (Post) (cm) 6.00 4.32 -Area of Debridement (cm) - Length 2.0 1.8 -Area of Debridement (cm) - Width 3.0 2.4 -Total Square (Area) (cm) 6.00 4.32 -Tunneling No No -Undermining/Tunneling No No -Circular Undermining No No -Wound/Ulcer Outcome Not Healed Not Healed -Ulcer Cleansing Rinsed/ Rinsed/ Irrigated with Irrigated with Saline Saline -Foul Odor after Cleansing No No -Bioengineered Tissue No No -Bleeding Controlled with Pressure Pressure -Treatment Response Procedure Procedure Tolerated Well Tolerated Well -Offloading No No -Debridement - Subq, 1st 20sq cm No No #2 R Lat LE Cluster -Time 10:50 10:53 -Correct Patient Yes Yes -Correct Side, Site, Position Yes Yes -Correct Procedure Yes Yes -Procedure Performed Yes Yes -Type of Procedure Debridement Debridement -Clinical Debridement Subcutaneous Subcutaneous -Tissue Removed Subcutaneous Subcutaneous -Post Debridement (cm) - Length 12.0 11.0 -Post Debridement (cm) - Width 7.0 4.5 -Post Debridement (cm) - Depth 0.1 0.1 -Total Square (Post) (cm) 84.00 49.50 -Area of Debridement (cm) - Length 12.0 11.0 -Area of Debridement (cm) - Width 7.0 4.5 -Total Square (Area) (cm) 84.00 49.50 -Tunneling No No -Undermining/Tunneling No No -Circular Undermining No No -Wound/Ulcer Outcome Not Healed Not Healed -Ulcer Cleansing Rinsed/ Rinsed/ Irrigated with Irrigated with Saline Saline -Foul Odor after Cleansing No No -Bioengineered Tissue No No -Bleeding Controlled with Pressure Pressure -Treatment Response Procedure Procedure Tolerated Well Tolerated Well -Offloading No No -Debridement - Subq, 1st 20sq cm No No #1 R giordano Med -Time 10:51 10:54 -Correct Patient Yes Yes -Correct Side, Site, Position Yes Yes -Correct Procedure Yes Yes -Procedure Performed Yes Yes -Type of Procedure Debridement Debridement -Clinical Debridement Subcutaneous Subcutaneous -Tissue Removed Subcutaneous Subcutaneous -Post Debridement (cm) - Length 7.0 3.0 -Post Debridement (cm) - Width 16.0 15.0 -Post Debridement (cm) - Depth 0.1 0.1 -Total Square (Post) (cm) 112.00 45.00 -Area of Debridement (cm) - Length 7.0 3.0 -Area of Debridement (cm) - Width 16.0 15.0 -Total Square (Area) (cm) 112.00 45.00 -Tunneling No No -Undermining/Tunneling No No -Circular Undermining No No -Wound/Ulcer Outcome Not Healed Not Healed -Ulcer Cleansing Rinsed/ Rinsed/ Irrigated with Irrigated with Saline Saline -Foul Odor after Cleansing No No -Bioengineered Tissue No No -Bleeding Controlled with Pressure Pressure -Treatment Response Procedure Procedure Tolerated Well Tolerated Well -Offloading No No -Debridement - Subq, 1st 20sq cm No No Pain Scale: 0-10 Numeric Is Patient Pain Free? Yes Yes WC - Nurse 3 - General Ulcer D/C NN Start: 04/29/22 09:39 Freq: Status: Active Protocol: Activity Type Activity Date Activity User E-sign Co-sign Detail Recorded Client Recorded Date Recorded By Document 04/29/22 11:10 [facility] [id number] 04/29/22 11:16 [facility] Document 05/03/22 15:26 KR [id number] 05/03/22 15:27 KR Edit Result 05/03/22 15:26 KR (1) [id number] 05/03/22 15:45 PL (1) RLE - Multi-Layered Wrap Application => Unna Boot - => Bilateral ($) - Unna Boots (Bilat) ($) => 2 04/29/22 05/03/22 11:10 15:26 Wound Care Nurse 3 #5 Left medial LE -Ulcer Cleansing Soap and Water -Foul Odor after Cleansing No -Primary Dressing Applied Aquacel Extra, Aquacel AG 4x4 Optilok 8x12 -Primary Dressing Covered/Secured with Dry Gauze, Secured with Tape -Other Covering unna boot per rb rn -Aquacel Extra 2 -Aquacel AG 4x4 1 -Optilok 8x12 1 #4 L dorsal foot -Ulcer Cleansing Soap and Water -Foul Odor after Cleansing No -Primary Dressing Applied Aquacel Extra, Optilok 6.5x10 -Other Dressing unna boot per rb rn -Aquacel Extra 0 -Optilok 6.5x10 1 #3 R dorsal foot -Ulcer Cleansing Soap and Water -Foul Odor after Cleansing No -Primary Dressing Applied Aquacel Extra -Other Dressing unna boot per rb rn -Aquacel Extra 0 #2 R Lat LE Cluster -Ulcer Cleansing Soap and Water -Foul Odor after Cleansing No -Primary Dressing Applied Aquacel Extra, Optilok 8x12 -Other Dressing unna boot per rb rn -Aquacel Extra 0 -Optilok 8x12 1 #1 R giordano Med -Ulcer Cleansing Soap and Water -Foul Odor after Cleansing No -Primary Dressing Applied Aquacel Extra -Other Dressing unna boot per rb rn -Aquacel Extra 0 LLE -Multi-Layered Wrap Application Unna Boot - Unna Boot - Bilateral ($) Bilateral ($) -Unna Boots (Bilat) ($) 2 2 -Other XL LEGS-USED DOUBLE UNNA PRODUCT RLE -Multi-Layered Wrap Application Unna Boot - Unna Boot - Bilateral ($) Bilateral ($) -Unna Boots (Bilat) ($) 2 2 -Other XL LEGS-USED DOUBLE THE PRODUCT/UNNA Vital Signs Temperature (97.8 F-99.1 F) 97.0 F L Temperature Source Temporal Pulse Rate (60-100) 75 Pulse Location Monitor Blood Pressure (90/60-120/80) 140/87 H Blood Pressure Mean (mm Hg) 104 Source Monitor Position Semi-Fowlers Blood Pressure Location Right Arm Pain Scale: 0-10 Numeric Is Patient Pain Free? Yes Yes WC - Visit Discharge Discharge Condition Stable Stable Ambulatory Status Ambulatory, Ambulatory,Cane Walker Transportation Private Auto Accompanied by NICK WALKER Additional Wound Wound debrided: Right lateral cluster Type of Debridement: Excisional debridement Anesthesia Used: 4% Lidocaine Solution Depth: Down to and including healthy tissue Percentage of wound debrided: 100 Instrument Used: 5mm curette Tissue Removed: Slough and devitalized tissue Severity: Fat Layer Exposed Amount of bleeding with debridement: Mild Bleeding Controlled with: Pressure Patient tolerated procedure: Patient tolerated procedure well Additional Wound Wound debrided: Right medial cluster Type of Debridement: Excisional debridement Anesthesia Used: 4% Lidocaine Solution Depth: Down to and including healthy tissue and in the subcutaneous layer Percentage of wound debrided: 100 Instrument Used: 5mm curette Severity: Fat Layer Exposed Amount of bleeding with debridement: Mild Bleeding Controlled with: Pressure Patient tolerated procedure: Patient tolerated procedure well Additional Wound Wound debrided: Left dorsal foot Type of Debridement: Excisional debridement Anesthesia Used: 4% Lidocaine Solution Depth: Down to and including healthy tissue and in the subcutaneous layer Percentage of wound debrided: 100 Instrument Used: 5mm curette Tissue Removed: Slough and devitalized tissue Severity: Fat Layer Exposed Amount of bleeding with debridement: Mild Bleeding Controlled with: Pressure Patient tolerated procedure: Patient tolerated procedure well Additional Wound Wound debrided: Left lower extremity cluster Type of Debridement: Excisional debridement Anesthesia Used: 4% Lidocaine Solution Depth: Down to and including healthy tissue and in the subcutaneous layer Percentage of wound debrided: 100 Instrument Used: 5mm curette Severity: Fat Layer Exposed Amount of bleeding with debridement: Mild Bleeding Controlled with: Pressure Patient tolerated procedure: Patient tolerated procedure well Assessment/Plan Assessment/Plan (1) Ulcer of left lower extremity with fat layer exposed: CODE(S): L97.922 - Non-pressure chronic ulcer of unspecified part of left lower leg with fat layer exposed (2) Ulcer of right lower extremity with fat layer exposed: CODE(S): L97.912 - Non-pressure chronic ulcer of unspecified part of right lower leg with fat layer exposed (3) Ulcer of left foot with fat layer exposed: CODE(S): L97.522 - Non-pressure chronic ulcer of other part of left foot with fat layer exposed (4) Ulcer of right foot with fat layer exposed: CODE(S): L97.512 - Non-pressure chronic ulcer of other part of right foot with fat layer exposed (5) Morbid obesity: CODE(S): E66.01 - Morbid (severe) obesity due to excess calories (6) Atrial fibrillation: CODE(S): I48.91 - Unspecified atrial fibrillation (7) Lymphedema: CODE(S): I89.0 - Lymphedema, not elsewhere classified PLAN: Plan Some improvement noted however there also appears to have been some crusting. Debridement done as documented above, procedure was well-tolerated. Switch to Fibracol to open areas with Adaptic over top. 3M wrap for edema management. Coming in Tuesday for a nurse visit. Job modification has been discussed discussed, sitting for 10 hours not beneficial. He has been advised to look into a standing desk, taking multiple breaks and elevating his lower extremities when seated, he voiced understanding. Exercise as tolerated and weight loss. Optimal protein intake which he states that he already does. Vitamin C, D and zinc. His questions were answered and he was advised to call with any further questions or concerns. Follow-up in a week with me. This note was generated with ReplySend dictation software. It may contain incorrect words, spelling, and punctuation that were not noted in checking the note before signing.
[2022-05-10 12:01] VITALS: BP 149/77; PULSE 81; RESP 18; TEMP 36.9; BMI 53.6
[2022-05-13 09:36] VITALS: BP 146/91; PULSE 94; RESP 20; TEMP 36.1; BMI 53.6
--- NOTE | 2022-05-13 12:59 | PN.PCM_ITS ---
History of Present Illness Date of Service: 05/13/22 Chief Complaint: Bilateral lower extremity ulcers History of Wound: Mr. Mayo is a 62-year-old who presents to the wound center due to nonhealing bilateral lower extremity ulcers. He states it started about 2 months ago. Chronic bilateral lower extremity swelling with difficulty wearing shoes and moving his lower extremities. Had some blister formation which subsequently opened up on rubbing from his shoes. Leg ulcer is said to have opened up on rubbing from his compression. Primary care physician had attempted care without any significant improvement. He denies any history of diabetes mellitus stating that his last A1c was in the fives. He sits for at least 10 hours at work taking short breaks. Currently at a BMI of 53.7. He denies chills, fever or otherwise feeling of unwell. Progress of Wound: Improvement in ulcerations and edema. Tolerated 3M wrap well. Subjective Subjective No new concerns at this time. Objective Data Objective Data Vital Signs: Vital Signs Temp Pulse Resp BP 97 F L 94 20 H 146/91 H 05/13/22 09:36 05/13/22 09:36 05/13/22 09:36 05/13/22 09:36 Oxygen Delivery Method Room Air Weight: 450 lb 1.282 oz Body Mass Index (BMI) 53.6 Lab / Micro Data Micro: Microbiology 04/29/22 10:55 Wound Abcess - Left Foot Gram Stain - Final 04/29/22 10:55 Wound Abcess - Left Foot Wound Culture - Final Staphylococcus cohnii urealyti Streptococcus dysgalactiae equ Staphylococcus epidermidis 04/29/22 10:55 Wound Abcess - Left Foot Anaerobic Culture - Final No anaerobic bacteria isolated. Charges/Coding Procedures Integumentary 111xxx-113xx: 15416 January subq tissue 20 sq cm/< Add On Codes: 13391 January subq tissue add-on (x13. Additional square centimeter debrided, please refer to clinical note.) Physical Exam Const alert, oriented x3 and no apparent distress General Appearance: cooperative, comfortable and well kempt HEENT normocephalic, head/scalp atraumatic and hearing grossly normal bilaterally Head and Scalp: normal to inspection, normocephalic and atraumatic Eyes EOMs intact bilaterally Neck full ROM General: normal visual inspection Resp normal respiratory effort Effort and Inspection: able to speak in complete sentences Extremity Extremity Narrative: Bilateral 3+ pitting edema. Skin Wounds: wounds noted Neuro oriented x3, CN's II-XII intact bilaterally and moves all extremities Psych mental status grossly normal, thought process normal, cooperative, affect normal and speech normal Debridement Note Debridement Note Wound debrided: Right foot Type of Debridement: Excisional debridement Anesthesia Used: 4% Lidocaine Solution Depth: Down to and including healthy tissue and in the subcutaneous layer Percentage of wound debrided: 100 Instrument Used: 5mm curette Tissue Removed: Slough and devitalized tissue Severity: Fat Layer Exposed Amount of bleeding with debridement: Mild Bleeding Controlled with: Pressure Patient tolerated procedure: Patient tolerated procedure well Post-Debridement Measurements and Additional Note: Post-Debridement Measurements/Treatment - Nurse 1 - General Ulcer Assessment Start: 04/29/22 09:39 Freq: Status: Active Protocol: KIMBERLYN Activity Type Activity Date Activity User E-sign Co-sign Detail Recorded Client Recorded Date Recorded By Document 04/29/22 09:48 DL [id number] 04/29/22 10:24 DL Document 05/03/22 15:26 KR [id number] 05/03/22 15:27 KR Document 05/06/22 10:29 AK [id number] 05/06/22 10:44 AK Document 05/10/22 12:01 DL [id number] 05/10/22 12:13 DL Document 05/13/22 09:36 MT [id number] 05/13/22 09:47 MT 04/29/22 05/03/22 05/06/22 09:48 15:26 10:29 - Today's Visit Information Type of service Initial Visit Nurse-only Follow-up Visit Visit (Physician/ORDER PLANNER ) Arrival Mode Ambulatory, Ambulatory,Cane Ambulatory, Walker Walker Transfer Assistance None None Accompanied by Patient Identification Verified (Name & Yes Yes Yes ) Patient Requires Transmission-Based Yes No Precautions Safety Precautions Fall Prevention Height and Weight Height 6 ft 4.8 in Weight 450 lb 1.282 oz Weight in Pounds 450.1 lbs Weight Measurement Method Stated by Patient Body Mass Index (BMI) 53.6 53.6 53.6 BMI Classification Obese Obese Obese BSA - Lino 3.15 Vital Signs Temperature (97.8 F-99.1 F) 97.9 F 97.0 F L 97.2 F L Temperature Source Temporal Temporal Temporal Pulse Rate (60-100) 110 H 75 112 H Pulse Location Monitor Monitor Monitor Respiratory Rate (12-18) 24 H 16 Respiratory rate source Observation Observation Oxygen Delivery Method Room Air Blood Pressure (90/60-120/80) 153/79 H 140/87 H 158/102 H Blood Pressure Mean (mm Hg) 103 104 120 Source Monitor Monitor Monitor Position Semi-Fowlers Sitting Blood Pressure Location Right Arm History Since Last Visit- (Skip if this is Patient's initial visit) Have you changed medications since your No No last visit? Any new allergies or adverse reactions No No Had a fall/change in ADL's that may No No increase risk of falls Signs or symptoms of abuse and/or No No neglect since last visit Have you been in the hospital since your No No last visit? Has dressing in place as prescribed Yes No Has compression in place as prescribed Yes No Has offloadiing in place as prescribed N/A N/A Experienced any changes in pain level or No No management Left Footwear Regular Shoe Regular Shoe Regular Shoe Right Footwear Regular Shoe Regular Shoe Regular Shoe Other Footwear removed unnas to shower prior to visit Pain Scale: 0-10 Numeric Is Patient Pain Free? Yes Yes Yes Lower Extremity Assessment/ Foot Assessment/ Toe Nail Assessment Left -Polpliteal Pulses Palpable No -Popliteal Doppler Inaudible -Posterior Tibial Palpable No -Posterior Tibial Doppler Multiphasic -Extremity Color Hyperpigmented, Hemosiderin -Hair Growth on Legs No -Hair Growth on Toes No -Temperature of Extremity Warm -Capillary Refill Greater than 3 Seconds -Dependent Rubor Yes -Blanched when Elevated No -Lipodermatosclerosis No -Other Deformity No -Prior Foot Ulcer No -Charcot Joint Yes -Prior Amputation No -Thick Yes -Discolored No -Deformed No -Improper Length & Hygeine No Right -Polpliteal Pulses Palpable No -Popliteal Doppler Inaudible -Posterior Tibial Palpable No -Dorsalis Pedis Palpable No -Dorsalis Pedis Doppler Multiphasic -Extremity Color Red, Hyperpigmented -Hair Growth on Legs No -Hair Growth on Toes No -Temperature of Extremity Warm -Capillary Refill Greater than 3 Seconds -Dependent Rubor Yes -Blanched when Elevated No -Lipodermatosclerosis No -Other Deformity No -Prior Foot Ulcer No -Charcot Joint Yes -Prior Amputation No -Thick Yes -Discolored No -Deformed No -Improper Length & Hygeine Yes Neuropathy Assessment Feet - Top Side and Bottom <Entered> (a) Communication Assessment Preferred language [place] Oil Burner Technician Required No Able to Read Yes Able to Write Yes Communication Tools None Right Hearing Abillity Normal Left Hearing Abillity Normal Visual Assistive Devices Glasses Teaching Assessment Preferences Verbal,Written Barriers to Learning Decreased Motivation Readiness To Learn Fair Willingness to Engage in Self Management Med Activies Readiness to Engage in Self Management Med Activities Anxiety Level Calm Cooperation Cooperative Perception Coherent Interest in Health Problem Asks Questions Education Importance Acknowledges Need Does Patient Smoke tobacco or other No substances Smoking Status Never smoker Is Patient Diabetic Yes Functional Assessment Recent Decline in Ability to Perform Ambulation Culture/Voodoo/Assembler Musical Instruments Cultural/Voodoo Needs that may affect No Treatment Plan Would you allow our [facility] form coverer to No meet you for the purpose of spiritual/ emotional support? Assembler Musical Instruments to contact place of restorationism No Teaching: Wound Center Diagnostic Tests Ordered -Person Taught Patient Dressing Your Wound -Person Taught Patient Compression Wraps & Stockings -Person Taught Patient *Welcome to the Wound Center -Person Taught Patient 05/10/22 05/13/22 12:01 09:36 WC - Today's Visit Information Type of service Nurse-only Follow-up Visit Visit (Physician/ORDER PLANNER ) Arrival Mode Ambulatory, Walker Walker Transfer Assistance None Accompanied by self Patient Identification Verified (Name & Yes Yes ) Patient Requires Transmission-Based No Precautions Safety Precautions Fall Prevention Fall Prevention Height and Weight Height Weight Weight in Pounds Weight Measurement Method Body Mass Index (BMI) 53.6 53.6 BMI Classification Obese Obese BSA - Lino Vital Signs Temperature (97.8 F-99.1 F) 98.5 F 97 F L Temperature Source Temporal Temporal Pulse Rate (60-100) 81 94 Pulse Location Monitor Monitor Respiratory Rate (12-18) 18 20 H Respiratory rate source Observation Observation Oxygen Delivery Method Room Air Blood Pressure (90/60-120/80) 149/77 H 146/91 H Blood Pressure Mean (mm Hg) 101 109 Source Monitor Monitor Position Sitting Blood Pressure Location Left Forearm History Since Last Visit- (Skip if this is Patient's initial visit) Have you changed medications since your No last visit? Any new allergies or adverse reactions No Had a fall/change in ADL's that may No increase risk of falls Signs or symptoms of abuse and/or No neglect since last visit Have you been in the hospital since your No last visit? Has dressing in place as prescribed Yes Yes Has compression in place as prescribed Yes Yes Has offloadiing in place as prescribed N/A Yes Experienced any changes in pain level or No Yes management Left Footwear Regular Shoe Right Footwear Regular Shoe Other Footwear Pain Scale: 0-10 Numeric Is Patient Pain Free? Yes Yes Lower Extremity Assessment/ Foot Assessment/ Toe Nail Assessment Left -Polpliteal Pulses Palpable -Popliteal Doppler -Posterior Tibial Palpable -Posterior Tibial Doppler -Extremity Color -Hair Growth on Legs -Hair Growth on Toes -Temperature of Extremity -Capillary Refill -Dependent Rubor -Blanched when Elevated -Lipodermatosclerosis -Other Deformity -Prior Foot Ulcer -Charcot Joint -Prior Amputation -Thick -Discolored -Deformed -Improper Length & Hygeine Right -Polpliteal Pulses Palpable -Popliteal Doppler -Posterior Tibial Palpable -Dorsalis Pedis Palpable -Dorsalis Pedis Doppler -Extremity Color -Hair Growth on Legs -Hair Growth on Toes -Temperature of Extremity -Capillary Refill -Dependent Rubor -Blanched when Elevated -Lipodermatosclerosis -Other Deformity -Prior Foot Ulcer -Charcot Joint -Prior Amputation -Thick -Discolored -Deformed -Improper Length & Hygeine Neuropathy Assessment Feet - Top Side and Bottom Communication Assessment Preferred language path Required Able to Read Able to Write Communication Tools Right Hearing Abillity Left Hearing Abillity Visual Assistive Devices Teaching Assessment Preferences Barriers to Learning Readiness To Learn Willingness to Engage in Self Management Activies Readiness to Engage in Self Management Activities Anxiety Level Cooperation Perception Interest in Health Problem Education Importance Does Patient Smoke tobacco or other substances Smoking Status Is Patient Diabetic Functional Assessment Recent Decline in Ability to Perform Culture/Voodoo/Assembler Musical Instruments Cultural/Voodoo Needs that may affect Treatment Plan Would you allow our hospital form coverer to meet you for the purpose of spiritual/ emotional support? Assembler Musical Instruments to contact place of restorationism Teaching: Wound Center Diagnostic Tests Ordered -Person Taught Dressing Your Wound -Person Taught Compression Wraps & Stockings -Person Taught *Welcome to the Wound Center -Person Taught (a) 1 - + WC - Nurse 1 - General Ulcer Measurement Start: 04/29/22 09:39 Freq: Status: Active Protocol: Activity Type Activity Date Activity User E-sign Co-sign Detail Recorded Client Recorded Date Recorded By Document 04/29/22 09:48 DL [id number] 04/29/22 10:24 DL Document 05/06/22 10:29 AK [id number] 05/06/22 10:44 AK Document 05/10/22 12:01 DL [id number] 05/10/22 12:13 DL Document 05/13/22 09:36 CA [id number] 05/13/22 09:47 CA 04/29/22 05/06/22 05/10/22 09:48 10:29 12:01 Wound Center Nurse 1 #5 Left medial LE -Combined with other wound No No -Current Size (cm) - Length 15 14 -Current Size (cm) - Width 14.8 14 -Current Size (cm) - Depth 0.1 0.1 -Total Square Cm 222.0 196 -Photo Taken Yes No No -Epithelialization None Present -Tunneling No -Undermining/Tunneling No -Circular Undermining No -Exudate Amt Large Medium Medium -Exudate Type Serosanguineous Serosanguineous Serosanguineous -Wound Margin Distinct, Distinct, Outline Outline Attached Attached -Granulation Amt Medium (34-66%) None Present (0 %) -Granulation Quality Red -Slough/Fibrin Yes -Necrosis Amt Medium (34-66%) Large (67-100%) -Necrotic Tissue Type Adherent Slough Adherent Slough -Structure Exposed N/A -Texture (Ni-wound Skin Appearance) Localized Edema Assessed, Localized Edema ,Scarring Scarring ,Scarring -Moisture (Ni-wound Skin Appearance) Weeping Assessed Maceration -Color (Ni-wound Skin Appearance) Erythema, Assessed, Hemosiderin Hemosiderin Erythema Staining Staining -Temperature (Ni-wound Skin No Abnormality No Abnormality No Abnormality Appearance) (Pt Warm) (Pt Warm) (Pt Warm) -Tenderness on Palpation (Ni-wound Yes No No Skin Appearance) -Ulcer Cleansing Soap and Water Soap and Water Soap and Water -Foul Odor after Cleansing No No No -Anesthetic Used 5% Lidocaine 4% Lidocaine Gel Solution #4 L dorsal foot -Combined with other wound No -Current Size (cm) - Length 1.8 1.4 -Current Size (cm) - Width 2 1.6 -Current Size (cm) - Depth 0.2 0.2 -Total Square Cm 3.6 2.24 -Photo Taken Yes No No -Epithelialization None Present -Tunneling No -Undermining/Tunneling No -Circular Undermining No -Exudate Amt Small Medium Medium -Exudate Type Serosanguineous Serosanguineous Serosanguineous -Wound Margin Distinct, Distinct, Outline Outline Attached Attached -Granulation Amt Medium (34-66%) Medium (34-66%) -Granulation Quality Red Red -Slough/Fibrin Yes -Necrosis Amt Medium (34-66%) Medium (34-66%) -Necrotic Tissue Type Adherent Slough Adherent Slough -Structure Exposed N/A -Texture (Ni-wound Skin Appearance) Localized Edema Assessed, ,Scarring Scarring -Moisture (Ni-wound Skin Appearance) Weeping Assessed -Color (Ni-wound Skin Appearance) Erythema Assessed, Erythema -Temperature (Ni-wound Skin No Abnormality No Abnormality Appearance) (Pt Warm) (Pt Warm) -Tenderness on Palpation (Ni-wound No No Skin Appearance) -Ulcer Cleansing Soap and Water Soap and Water -Foul Odor after Cleansing No No -Anesthetic Used 4% Lidocaine 4% Lidocaine Solution Solution #3 R dorsal foot -Combined with other wound No -Current Size (cm) - Length 2 1.5 -Current Size (cm) - Width 2.5 2 -Current Size (cm) - Depth 0.1 0.1 -Total Square Cm 5.0 3.0 -Photo Taken Yes No No -Epithelialization Small 1-33% -Tunneling No -Undermining/Tunneling No -Circular Undermining No -Exudate Amt Medium Medium Medium -Exudate Type Serosanguineous Serosanguineous -Wound Margin Distinct, Distinct, Distinct, Outline Outline Outline Attached Attached Attached -Granulation Amt Medium (34-66%) Medium (34-66%) -Granulation Quality Red Red -Slough/Fibrin Yes -Necrosis Amt Medium (34-66%) Medium (34-66%) -Necrotic Tissue Type Adherent Slough Adherent Slough -Structure Exposed N/A -Texture (Ni-wound Skin Appearance) Localized Edema Assessed, Localized Edema ,Scarring Scarring ,Scarring -Moisture (Ni-wound Skin Appearance) Weeping Assessed No Abnormality -Color (Ni-wound Skin Appearance) Erythema, Assessed, Hemosiderin Hemosiderin Erythema Staining Staining -Temperature (Ni-wound Skin No Abnormality No Abnormality No Abnormality Appearance) (Pt Warm) (Pt Warm) (Pt Warm) -Tenderness on Palpation (Ni-wound No No No Skin Appearance) -Ulcer Cleansing Soap and Water Not Cleansed Soap and Water -Foul Odor after Cleansing No No No -Anesthetic Used 4% Lidocaine 4% Lidocaine Solution Solution #2 R Lat LE Cluster -Combined with other wound No -Current Size (cm) - Length 11.5 11.4 -Current Size (cm) - Width 6.5 1.5 -Current Size (cm) - Depth 0.1 0.1 -Total Square Cm 74.75 17.10 -Photo Taken Yes No No -Epithelialization None Present -Tunneling No -Undermining/Tunneling No -Circular Undermining No -Exudate Amt Medium None Present Medium -Exudate Type Serosanguineous Serosanguineous -Wound Margin Distinct, Distinct, Distinct, Outline Outline Outline Attached Attached Attached -Granulation Amt Medium (34-66%) None Present (0 %) -Granulation Quality Red -Slough/Fibrin Yes -Necrosis Amt Medium (34-66%) Large (67-100%) -Necrotic Tissue Type Adherent Slough Eschar -Structure Exposed N/A -Texture (Ni-wound Skin Appearance) Localized Edema Assessed, Localized Edema ,Scarring Scarring ,Scarring -Moisture (Ni-wound Skin Appearance) Weeping Assessed No Abnormality -Color (Ni-wound Skin Appearance) Erythema, Assessed Hemosiderin Hemosiderin Staining Staining -Temperature (Ni-wound Skin No Abnormality No Abnormality No Abnormality Appearance) (Pt Warm) (Pt Warm) (Pt Warm) -Tenderness on Palpation (Ni-wound No No No Skin Appearance) -Ulcer Cleansing Soap and Water Soap and Water Soap and Water -Foul Odor after Cleansing No No No -Anesthetic Used 4% Lidocaine 4% Lidocaine Solution Solution #1 R giordano Med -Combined with other wound No -Current Size (cm) - Length 3.3 2.5 -Current Size (cm) - Width 6.5 5.4 -Current Size (cm) - Depth 0.1 0.1 -Total Square Cm 21.45 13.50 -Photo Taken Yes No No -Epithelialization None Present -Tunneling No -Undermining/Tunneling No -Circular Undermining No -Exudate Amt Medium Medium Medium -Exudate Type Serosanguineous Serosanguineous Serosanguineous -Wound Margin Distinct, Distinct, Distinct, Outline Outline Outline Attached Attached Attached -Granulation Amt Medium (34-66%) Medium (34-66%) -Granulation Quality Red Red -Slough/Fibrin Yes -Necrosis Amt Medium (34-66%) Medium (34-66%) -Necrotic Tissue Type Adherent Slough Adherent Slough -Structure Exposed N/A -Texture (Ni-wound Skin Appearance) Localized Edema Assessed, Localized Edema ,Scarring Scarring ,Scarring -Moisture (Ni-wound Skin Appearance) Weeping Assessed No Abnormality -Color (Ni-wound Skin Appearance) Erythema, Assessed, Hemosiderin Hemosiderin Erythema Staining Staining -Temperature (Ni-wound Skin No Abnormality No Abnormality No Abnormality Appearance) (Pt Warm) (Pt Warm) (Pt Warm) -Tenderness on Palpation (Ni-wound Yes No No Skin Appearance) -Ulcer Cleansing Soap and Water Soap and Water Soap and Water -Foul Odor after Cleansing No No No -Anesthetic Used 4% Lidocaine 4% Lidocaine Solution Solution Lower Limb Edema Present Yes Right Calf (cm) 72 72 65.5 Right Ankle (cm) 45.5 42 43 Left Calf (cm) 76.6 74 69 Left Ankle (cm) 49.4 49 43 05/13/22 09:36 Wound Center Nurse 1 #5 Left medial LE -Combined with other wound -Current Size (cm) - Length 6.5 -Current Size (cm) - Width 19 -Current Size (cm) - Depth 0.1 -Total Square Cm 123.5 -Photo Taken -Epithelialization -Tunneling -Undermining/Tunneling -Circular Undermining -Exudate Amt Medium -Exudate Type Serosanguineous -Wound Margin Flat & Intact -Granulation Amt Medium (34-66%) -Granulation Quality Pale,[place] -Slough/Fibrin -Necrosis Amt Medium (34-66%) -Necrotic Tissue Type Adherent Slough -Structure Exposed -Texture (Ni-wound Skin Appearance) Assessed -Moisture (Ni-wound Skin Appearance) Assessed -Color (Ni-wound Skin Appearance) Assessed -Temperature (Ni-wound Skin No Abnormality Appearance) (Pt Warm) -Tenderness on Palpation (Ni-wound No Skin Appearance) -Ulcer Cleansing Wound Cleanser -Foul Odor after Cleansing -Anesthetic Used 4% Lidocaine Solution #4 L dorsal foot -Combined with other wound -Current Size (cm) - Length 1.3 -Current Size (cm) - Width 1.4 -Current Size (cm) - Depth 0.1 -Total Square Cm 1.82 -Photo Taken -Epithelialization -Tunneling -Undermining/Tunneling -Circular Undermining -Exudate Amt Medium -Exudate Type Serosanguineous -Wound Margin Flat & Intact -Granulation Amt Medium (34-66%) -Granulation Quality Pale,[place] -Slough/Fibrin -Necrosis Amt Medium (34-66%) -Necrotic Tissue Type -Structure Exposed -Texture (Ni-wound Skin Appearance) Assessed -Moisture (Ni-wound Skin Appearance) Assessed -Color (Ni-wound Skin Appearance) Assessed -Temperature (Ni-wound Skin No Abnormality Appearance) (Pt Warm) -Tenderness on Palpation (Ni-wound No Skin Appearance) -Ulcer Cleansing Soap and Water -Foul Odor after Cleansing -Anesthetic Used 4% Lidocaine Solution #3 R dorsal foot -Combined with other wound -Current Size (cm) - Length 1.5 -Current Size (cm) - Width 2.3 -Current Size (cm) - Depth 0.1 -Total Square Cm 3.45 -Photo Taken -Epithelialization -Tunneling -Undermining/Tunneling -Circular Undermining -Exudate Amt Medium -Exudate Type Serosanguineous -Wound Margin Flat & Intact -Granulation Amt Medium (34-66%) -Granulation Quality Pale,[place] -Slough/Fibrin -Necrosis Amt Medium (34-66%) -Necrotic Tissue Type Adherent Slough -Structure Exposed -Texture (Ni-wound Skin Appearance) Assessed, Localized Edema -Moisture (Ni-wound Skin Appearance) Assessed -Color (Ni-wound Skin Appearance) Assessed -Temperature (Ni-wound Skin No Abnormality Appearance) (Pt Warm) -Tenderness on Palpation (Ni-wound No Skin Appearance) -Ulcer Cleansing Wound Cleanser -Foul Odor after Cleansing -Anesthetic Used 4% Lidocaine Solution #2 R Lat LE Cluster -Combined with other wound -Current Size (cm) - Length 11 -Current Size (cm) - Width 2.0 -Current Size (cm) - Depth 0.1 -Total Square Cm 22.0 -Photo Taken -Epithelialization -Tunneling -Undermining/Tunneling -Circular Undermining -Exudate Amt Medium -Exudate Type Serosanguineous -Wound Margin Flat & Intact -Granulation Amt Medium (34-66%) -Granulation Quality Pale,[place] -Slough/Fibrin -Necrosis Amt Medium (34-66%) -Necrotic Tissue Type Adherent Slough -Structure Exposed -Texture (Ni-wound Skin Appearance) Assessed, Localized Edema -Moisture (Ni-wound Skin Appearance) Assessed -Color (Ni-wound Skin Appearance) Assessed -Temperature (Ni-wound Skin No Abnormality Appearance) (Pt Warm) -Tenderness on Palpation (Ni-wound No Skin Appearance) -Ulcer Cleansing Soap and Water -Foul Odor after Cleansing -Anesthetic Used 4% Lidocaine Solution #1 R giordano Med -Combined with other wound -Current Size (cm) - Length 2.3 -Current Size (cm) - Width 4.5 -Current Size (cm) - Depth 0.1 -Total Square Cm 10.35 -Photo Taken -Epithelialization -Tunneling -Undermining/Tunneling -Circular Undermining -Exudate Amt Medium -Exudate Type Serosanguineous -Wound Margin Flat & Intact -Granulation Amt Medium (34-66%) -Granulation Quality Pale,[place] -Slough/Fibrin -Necrosis Amt Medium (34-66%) -Necrotic Tissue Type Adherent Slough -Structure Exposed -Texture (Ni-wound Skin Appearance) Assessed, Localized Edema -Moisture (Ni-wound Skin Appearance) Assessed -Color (Ni-wound Skin Appearance) Assessed -Temperature (Ni-wound Skin No Abnormality Appearance) (Pt Warm) -Tenderness on Palpation (Ni-wound No Skin Appearance) -Ulcer Cleansing Soap and Water -Foul Odor after Cleansing -Anesthetic Used 4% Lidocaine Solution Lower Limb Edema Present Right Calf (cm) 61.5 Right Ankle (cm) 42.5 Left Calf (cm) 67.5 Left Ankle (cm) 46 WC - Nurse 2 - General Ulcer CM Notes Start: 04/29/22 09:39 Freq: Status: Active Protocol: Activity Type Activity Date Activity User E-sign Co-sign Detail Recorded Client Recorded Date Recorded By Document 04/29/22 10:47 MW [id number] 04/29/22 11:04 MW Edit Result 04/29/22 10:47 MW (1) [id number] 04/29/22 11:04 MW Document 05/06/22 10:49 MW [id number] 05/06/22 11:09 MW Document 05/13/22 10:06 MW [id number] 05/13/22 10:21 MW (1) #5 Left medial LE - Debridement, SubQ, ea addt'l 20sq cm 8 => 18 or part thereof 04/29/22 05/06/22 05/13/22 10:47 10:49 10:06 Wound Center Nurse 2 #5 Left medial LE -Time 10:49 10:51 10:10 -Correct Patient Yes Yes Yes -Correct Side, Site, Position Yes Yes Yes -Correct Procedure Yes Yes Yes -Procedure Performed Yes Yes Yes -Type of Procedure Debridement Debridement Debridement -Clinical Debridement Subcutaneous Subcutaneous Subcutaneous -Tissue Removed Subcutaneous Subcutaneous Subcutaneous -Post Debridement (cm) - Length 11.5 11.0 12.0 -Post Debridement (cm) - Width 15.0 15.0 13.0 -Post Debridement (cm) - Depth 0.1 0.1 0.1 -Total Square (Post) (cm) 172.50 165.00 156.00 -Area of Debridement (cm) - Length 11.5 11.0 12.0 -Area of Debridement (cm) - Width 15.0 15.0 13.0 -Total Square (Area) (cm) 172.50 165.00 156.00 -Tunneling No No No -Undermining/Tunneling No No No -Circular Undermining No No No -Wound/Ulcer Outcome Not Healed Not Healed Not Healed -Ulcer Cleansing Rinsed/ Rinsed/ Rinsed/ Irrigated with Irrigated with Irrigated with Saline Saline Saline -Foul Odor after Cleansing No No No -Bioengineered Tissue No No No -Bleeding Controlled with Pressure Pressure Pressure -Treatment Response Procedure Procedure Procedure Tolerated Well Tolerated Well Tolerated Well -Offloading No No No -Debridement - Subq, 1st 20sq cm Yes Yes Yes -Debridement, SubQ, ea addt'l 20sq cm 18 13 7 or part thereof #4 L dorsal foot -Time 10:50 10:52 10:10 -Correct Patient Yes Yes Yes -Correct Side, Site, Position Yes Yes Yes -Correct Procedure Yes Yes Yes -Procedure Performed Yes Yes Yes -Type of Procedure Debridement Debridement Debridement -Clinical Debridement Subcutaneous Subcutaneous Subcutaneous -Tissue Removed Subcutaneous Subcutaneous Subcutaneous -Post Debridement (cm) - Length 1.5 2.1 2.2 -Post Debridement (cm) - Width 2.3 1.5 1.3 -Post Debridement (cm) - Depth 0.2 0.1 0.1 -Total Square (Post) (cm) 3.45 3.15 2.86 -Area of Debridement (cm) - Length 1.5 2.1 2.2 -Area of Debridement (cm) - Width 2.3 1.5 1.3 -Total Square (Area) (cm) 3.45 3.15 2.86 -Tunneling No No No -Undermining/Tunneling No No No -Circular Undermining No No No -Wound/Ulcer Outcome Not Healed Not Healed Not Healed -Ulcer Cleansing Rinsed/ Rinsed/ Rinsed/ Irrigated with Irrigated with Irrigated with Saline Saline Saline -Foul Odor after Cleansing No No No -Bioengineered Tissue No No No -Bleeding Controlled with Pressure Pressure Pressure -Treatment Response Procedure Procedure Procedure Tolerated Well Tolerated Well Tolerated Well -Offloading No No No -Debridement - Subq, 1st 20sq cm No No No #3 R dorsal foot -Time 10:50 10:52 10:10 -Correct Patient Yes Yes Yes -Correct Side, Site, Position Yes Yes Yes -Correct Procedure Yes Yes Yes -Procedure Performed Yes Yes Yes -Type of Procedure Debridement Debridement Debridement -Clinical Debridement Subcutaneous Subcutaneous Subcutaneous -Tissue Removed Subcutaneous Subcutaneous Subcutaneous -Post Debridement (cm) - Length 2.0 1.8 1.4 -Post Debridement (cm) - Width 3.0 2.4 2.0 -Post Debridement (cm) - Depth 0.2 0.1 0.1 -Total Square (Post) (cm) 6.00 4.32 2.80 -Area of Debridement (cm) - Length 2.0 1.8 1.4 -Area of Debridement (cm) - Width 3.0 2.4 2.0 -Total Square (Area) (cm) 6.00 4.32 2.80 -Tunneling No No No -Undermining/Tunneling No No No -Circular Undermining No No No -Wound/Ulcer Outcome Not Healed Not Healed Not Healed -Ulcer Cleansing Rinsed/ Rinsed/ Rinsed/ Irrigated with Irrigated with Irrigated with Saline Saline Saline -Foul Odor after Cleansing No No No -Bioengineered Tissue No No No -Bleeding Controlled with Pressure Pressure Pressure -Treatment Response Procedure Procedure Procedure Tolerated Well Tolerated Well Tolerated Well -Offloading No No No -Debridement - Subq, 1st 20sq cm No No No #2 R Lat LE Cluster -Time 10:50 10:53 10:11 -Correct Patient Yes Yes Yes -Correct Side, Site, Position Yes Yes Yes -Correct Procedure Yes Yes Yes -Procedure Performed Yes Yes Yes -Type of Procedure Debridement Debridement Debridement -Clinical Debridement Subcutaneous Subcutaneous Subcutaneous -Tissue Removed Subcutaneous Subcutaneous Subcutaneous -Post Debridement (cm) - Length 12.0 11.0 11.0 -Post Debridement (cm) - Width 7.0 4.5 1.0 -Post Debridement (cm) - Depth 0.1 0.1 0.1 -Total Square (Post) (cm) 84.00 49.50 11.00 -Area of Debridement (cm) - Length 12.0 11.0 11.0 -Area of Debridement (cm) - Width 7.0 4.5 1.0 -Total Square (Area) (cm) 84.00 49.50 11.00 -Tunneling No No No -Undermining/Tunneling No No No -Circular Undermining No No No -Wound/Ulcer Outcome Not Healed Not Healed Not Healed -Ulcer Cleansing Rinsed/ Rinsed/ Rinsed/ Irrigated with Irrigated with Irrigated with Saline Saline Saline -Foul Odor after Cleansing No No No -Bioengineered Tissue No No No -Bleeding Controlled with Pressure Pressure Pressure -Treatment Response Procedure Procedure Procedure Tolerated Well Tolerated Well Tolerated Well -Offloading No No No -Debridement - Subq, 1st 20sq cm No No No #1 R giordano Med -Time 10:51 10:54 10:12 -Correct Patient Yes Yes Yes -Correct Side, Site, Position Yes Yes Yes -Correct Procedure Yes Yes Yes -Procedure Performed Yes Yes Yes -Type of Procedure Debridement Debridement Debridement -Clinical Debridement Subcutaneous Subcutaneous Subcutaneous -Tissue Removed Subcutaneous Subcutaneous Subcutaneous -Post Debridement (cm) - Length 7.0 3.0 2.3 -Post Debridement (cm) - Width 16.0 15.0 12.0 -Post Debridement (cm) - Depth 0.1 0.1 0.1 -Total Square (Post) (cm) 112.00 45.00 27.60 -Area of Debridement (cm) - Length 7.0 3.0 2.3 -Area of Debridement (cm) - Width 16.0 15.0 12.0 -Total Square (Area) (cm) 112.00 45.00 27.60 -Tunneling No No No -Undermining/Tunneling No No No -Circular Undermining No No No -Wound/Ulcer Outcome Not Healed Not Healed Not Healed -Ulcer Cleansing Rinsed/ Rinsed/ Rinsed/ Irrigated with Irrigated with Irrigated with Saline Saline Saline -Foul Odor after Cleansing No No No -Bioengineered Tissue No No No -Bleeding Controlled with Pressure Pressure Pressure -Treatment Response Procedure Procedure Procedure Tolerated Well Tolerated Well Tolerated Well -Offloading No No No -Debridement - Subq, 1st 20sq cm No No No Pain Scale: 0-10 Numeric Is Patient Pain Free? Yes Yes Yes WC - Nurse 3 - General Ulcer D/C NN Start: 04/29/22 09:39 Freq: Status: Active Protocol: Activity Type Activity Date Activity User E-sign Co-sign Detail Recorded Client Recorded Date Recorded By Document 04/29/22 11:10 [facility] [id number] 04/29/22 11:16 [facility] Document 05/03/22 15:26 KR [id number] 05/03/22 15:27 KR Edit Result 05/03/22 15:26 KR (1) [id number] 05/03/22 15:45 PL Document 05/10/22 12:01 DL [id number] 05/10/22 12:13 DL Edit Result 05/10/22 12:01 DL (2) [id number] 05/11/22 07:29 PL Document 05/13/22 10:45 MT [id number] 05/13/22 10:46 MT (1) RLE - Multi-Layered Wrap Application => Unna Boot - => Bilateral ($) - Unna Boots (Bilat) ($) => 2 (2) Bilateral - Multi-Layered Wrap Application => Multi-Layer Comp - => Bilat ($) LLE - Multi-Layered Wrap Application Multi-Layer Comp - => Bilat ($) => RLE - Multi-Layered Wrap Application Multi-Layer Comp - => Bilat ($) => 04/29/22 05/03/22 05/10/22 11:10 15:26 12:01 Wound Care Nurse 3 #5 Left medial LE -Ulcer Cleansing Soap and Water Soap and Water -Foul Odor after Cleansing No No -Primary Dressing Applied Aquacel Extra, Aquacel AG 4x4 Optilok 8x12 -Other Dressing fibricol -Primary Dressing Covered/Secured with Dry Gauze, Dry Gauze & Secured with Roll Gauze Tape -Other Covering unna boot per rb rn -Aquacel Extra 2 -Aquacel AG 4x4 1 -Fibracol Plus 4x4 -Optilok 8x12 1 #4 L dorsal foot -Ulcer Cleansing Soap and Water Soap and Water -Foul Odor after Cleansing No No -Primary Dressing Applied Aquacel Extra, Optilok 6.5x10 -Other Dressing unna boot per fibracol rb rn -Primary Dressing Covered/Secured with Dry Gauze & Roll Gauze, Secured with Tape -Aquacel Extra 0 -Optilok 6.5x10 1 #3 R dorsal foot -Ulcer Cleansing Soap and Water Soap and Water -Foul Odor after Cleansing No No -Primary Dressing Applied Aquacel Extra -Other Dressing unna boot per fibracol rb rn -Primary Dressing Covered/Secured with Dry Gauze & Roll Gauze, Secured with Tape -Aquacel Extra 0 #2 R Lat LE Cluster -Ulcer Cleansing Soap and Water Soap and Water -Foul Odor after Cleansing No No -Primary Dressing Applied Aquacel Extra, Optilok 8x12 -Other Dressing unna boot per fibracol rb rn -Primary Dressing Covered/Secured with Dry Gauze & Roll Gauze, Secured with Tape -Aquacel Extra 0 -Optilok 8x12 1 #1 R giordano Med -Ulcer Cleansing Soap and Water Soap and Water -Foul Odor after Cleansing No No -Primary Dressing Applied Aquacel Extra -Other Dressing unna boot per fibracol rb rn -Primary Dressing Covered/Secured with Dry Gauze & Roll Gauze, Secured with Tape -Aquacel Extra 0 Bilateral -Multi-Layered Wrap Application Multi-Layer Comp - Bilat ($ ) Left -Multi-Layered Wrap Application Right -Multi-Layered Wrap Application LLE -Multi-Layered Wrap Application Unna Boot - Unna Boot - Bilateral ($) Bilateral ($) -Unna Boots (Bilat) ($) 2 2 -Other XL LEGS-USED DOUBLE UNNA PRODUCT RLE -Multi-Layered Wrap Application Unna Boot - Unna Boot - Bilateral ($) Bilateral ($) -Unna Boots (Bilat) ($) 2 2 -Other XL LEGS-USED DOUBLE THE PRODUCT/UNNA Treatment Response Procedure Tolerated Well Vital Signs Temperature (97.8 F-99.1 F) 97.0 F L 98.5 F Temperature Source Temporal Temporal Pulse Rate (60-100) 75 81 Pulse Location Monitor Monitor Respiratory Rate (12-18) 18 Respiratory rate source Observation Blood Pressure (90/60-120/80) 140/87 H 149/77 H Blood Pressure Mean (mm Hg) 104 101 Source Monitor Monitor Position Semi-Fowlers Blood Pressure Location Right Arm Pain Scale: 0-10 Numeric Is Patient Pain Free? Yes Yes Yes WC - Visit Discharge Discharge Condition Stable Stable Stable Ambulatory Status Ambulatory, Ambulatory,Cane Ambulatory, Walker Walker Transportation Private Auto Private Auto Accompanied by NICK WALKER 05/13/22 10:45 Wound Care Nurse 3 #5 Left medial LE -Ulcer Cleansing Soap and Water -Foul Odor after Cleansing -Primary Dressing Applied Fibracol Plus 4x4 -Other Dressing -Primary Dressing Covered/Secured with Dry Gauze & Roll Gauze, Secured with Tape -Other Covering -Aquacel Extra -Aquacel AG 4x4 -Fibracol Plus 4x4 1 -Optilok 8x12 #4 L dorsal foot -Ulcer Cleansing -Foul Odor after Cleansing -Primary Dressing Applied -Other Dressing -Primary Dressing Covered/Secured with -Aquacel Extra -Optilok 6.5x10 #3 R dorsal foot -Ulcer Cleansing -Foul Odor after Cleansing -Primary Dressing Applied -Other Dressing -Primary Dressing Covered/Secured with -Aquacel Extra #2 R Lat LE Cluster -Ulcer Cleansing -Foul Odor after Cleansing -Primary Dressing Applied -Other Dressing -Primary Dressing Covered/Secured with -Aquacel Extra -Optilok 8x12 #1 R giordano Med -Ulcer Cleansing -Foul Odor after Cleansing -Primary Dressing Applied -Other Dressing -Primary Dressing Covered/Secured with -Aquacel Extra Bilateral -Multi-Layered Wrap Application Left -Multi-Layered Wrap Application Multi-Layer Comp - Left ($) Right -Multi-Layered Wrap Application Multi-Layer Comp - Right ($ ) LLE -Multi-Layered Wrap Application Multi-Layer Comp - Left ($) -Unna Boots (Bilat) ($) -Other RLE -Multi-Layered Wrap Application Multi-Layer Comp - Right ($ ) -Unna Boots (Bilat) ($) -Other Treatment Response Vital Signs Temperature (97.8 F-99.1 F) Temperature Source Pulse Rate (60-100) Pulse Location Respiratory Rate (12-18) Respiratory rate source Blood Pressure (90/60-120/80) Blood Pressure Mean (mm Hg) Source Position Blood Pressure Location Pain Scale: 0-10 Numeric Is Patient Pain Free? Yes WC - Visit Discharge Discharge Condition Ambulatory Status Transportation Accompanied by Additional Wound Wound debrided: Right lower extremity lateral cluster Type of Debridement: Excisional debridement Anesthesia Used: 4% Lidocaine Solution Depth: Down to and including healthy tissue and in the subcutaneous layer Percentage of wound debrided: 100 Instrument Used: 5mm curette Tissue Removed: Slough and devitalized tissue Severity: Fat Layer Exposed Amount of bleeding with debridement: Mild Bleeding Controlled with: Pressure Patient tolerated procedure: Patient tolerated procedure well Additional Wound Wound debrided: Right lower extremity medial cluster Type of Debridement: Excisional debridement Anesthesia Used: 4% Lidocaine Solution Depth: Down to and including healthy tissue and in the subcutaneous layer Percentage of wound debrided: 100 Instrument Used: 5mm curette Tissue Removed: Slough and devitalized tissue Severity: Fat Layer Exposed Amount of bleeding with debridement: Mild Bleeding Controlled with: Pressure Patient tolerated procedure: Patient tolerated procedure well Additional Wound Wound debrided: Left dorsal foot Type of Debridement: Excisional debridement Anesthesia Used: 4% Lidocaine Solution Depth: Down to and including healthy tissue and in the subcutaneous layer Percentage of wound debrided: 100 Instrument Used: 5mm curette Tissue Removed: Slough and devitalized tissue Severity: Fat Layer Exposed Amount of bleeding with debridement: Mild Bleeding Controlled with: Pressure Patient tolerated procedure: Patient tolerated procedure well Additional Wound Wound debrided: Left lower extremity cluster Type of Debridement: Excisional debridement Anesthesia Used: 4% Lidocaine Solution Depth: Down to and including healthy tissue and in the subcutaneous layer Percentage of wound debrided: 100 Instrument Used: 5mm curette Tissue Removed: Slough and devitalized tissue Severity: Fat Layer Exposed Amount of bleeding with debridement: Mild Bleeding Controlled with: Pressure Patient tolerated procedure: Patient tolerated procedure well Assessment/Plan Assessment/Plan (1) Ulcer of left lower extremity with fat layer exposed: CODE(S): L97.922 - Non-pressure chronic ulcer of unspecified part of left lower leg with fat layer exposed (2) Ulcer of right lower extremity with fat layer exposed: CODE(S): L97.912 - Non-pressure chronic ulcer of unspecified part of right lower leg with fat layer exposed (3) Ulcer of left foot with fat layer exposed: CODE(S): L97.522 - Non-pressure chronic ulcer of other part of left foot with fat layer exposed (4) Ulcer of right foot with fat layer exposed: CODE(S): L97.512 - Non-pressure chronic ulcer of other part of right foot with fat layer exposed (5) Morbid obesity: CODE(S): E66.01 - Morbid (severe) obesity due to excess calories (6) Atrial fibrillation: CODE(S): I48.91 - Unspecified atrial fibrillation (7) Lymphedema: CODE(S): I89.0 - Lymphedema, not elsewhere classified PLAN: Plan Even better improvement noted this week. Edema with some improvement as well. Yes debridement done as documented above, procedure was well-tolerated. Continue Fibracol to open areas with Adaptic over top and 3M wrap for edema management. Come in Tuesday for a nurse visit. Job modification has been discussed, sitting for 10 hours not beneficial. He has been advised to look into a standing desk, taking multiple breaks and elevating his lower extremities when seated, he voiced understanding. Exercise as tolerated and weight loss. Optimal protein intake which he states that he already does. Vitamin C, D and zinc. His questions were answered and he was advised to call with any further questions or concerns. Follow-up in 2 weeks with me. Nurse visits for dressing and 3M change. This note was generated with [employer] dictation software. It may contain incorrect words, spelling, and punctuation that were not noted in checking the note before signing.
[2022-05-17 11:48] VITALS: BP 130/60; PULSE 102; RESP 24; TEMP 36.4; BMI 53.6
[2022-05-20 08:58] VITALS: BP 123/96; PULSE 81; RESP 24; TEMP 36.8; BMI 53.6
== END 2022-05-20 23:59 | disposition home or self-care (01) ==
LOC: WC 08:45
PROVIDERS: Visit Provider Internal Medicine
DX: E11.621 Type 2 diabetes mellitus with foot ulcer (principal); E11.622 Type 2 diabetes mellitus with other skin ulcer; L97.522 Non-pressure chronic ulcer of other part of left foot with fat layer exposed; L97.512 Non-pressure chronic ulcer of other part of right foot with fat layer exposed; L97.822 Non-pressure chronic ulcer of other part of left lower leg with fat layer exposed; L97.812 Non-pressure chronic ulcer of other part of right lower leg with fat layer exposed; I48.91 Unspecified atrial fibrillation; E66.01 Morbid (severe) obesity due to excess calories; Z68.43 Body mass index [BMI] 50.0-59.9, adult; I89.0 Lymphedema, not elsewhere classified; Z79.899 Other long term (current) drug therapy; Z79.01 Long term (current) use of anticoagulants
CPT/HCPCS: 11042; 11045; 29580; 29581; 87070; 87075; 87077; 87186; 87205; 99203; G0463

== ENCOUNTER 2022-06-17 13:15 | Outpatient (RCR) | payer OTHER, SELFPAY ==
[2022-05-21 00:44] VITALS: BP 123/96; PULSE 81; RESP 24; TEMP 36.8; BMI 53.6
[2022-05-25 13:33] VITALS: BP 146/78; PULSE 88; RESP 16; TEMP 36; BMI 53.6
[2022-06-01 13:12] VITALS: BP 131/98; PULSE 95; RESP 16; TEMP 36; BMI 53.6
[2022-06-03 10:05] VITALS: BP 123/86; PULSE 95; TEMP 35.8; BMI 53.6
--- NOTE | 2022-06-03 15:56 | PCM.WC.PN ---
History of Present Illness Date of Service: 06/03/22 Chief Complaint: Bilateral lower extremity ulcers History of Wound: Mr. Mayo is a 62-year-old who presents to the wound center due to nonhealing bilateral lower extremity ulcers. He states it started about 2 months ago. Chronic bilateral lower extremity swelling with difficulty wearing shoes and moving his lower extremities. Had some blister formation which subsequently opened up on rubbing from his shoes. Leg ulcer is said to have opened up on rubbing from his compression. Primary care physician had attempted care without any significant improvement. He denies any history of diabetes mellitus stating that his last A1c was in the fives. He sits for at least 10 hours at work taking short breaks. Currently at a BMI of 53.7. He denies chills, fever or otherwise feeling of unwell. Progress of Wound: Some improvement noted. Has been using a lymphedema pump and has had significant improvement in his chronic lower extremity edema. Also states that he is working on weight loss and so far has lost about 20 to 30 pounds. Objective Data Objective Data Vital Signs: Vital Signs Temp Pulse Resp BP O2 Del Method 96.5 F L 95 16 123/86 H Room Air 06/03/22 10:05 06/03/22 10:05 06/01/22 13:12 06/03/22 10:05 06/03/22 10:05 Oxygen Delivery Method Room Air Weight: 450 lb 1.282 oz Body Mass Index (BMI) 53.6 Charges/Coding Procedures Integumentary 111xxx-113xx: 51030 January subq tissue 20 sq cm/< Add On Codes: 53866 January subq tissue add-on (x2 additional square centimeter debrided, please refer to clinical note.) Physical Exam Const alert, oriented x3 and no apparent distress General Appearance: cooperative, comfortable and well kempt HEENT normocephalic, head/scalp atraumatic and hearing grossly normal bilaterally Head and Scalp: normal to inspection, normocephalic and atraumatic Eyes EOMs intact bilaterally Neck full ROM General: normal visual inspection Resp normal respiratory effort Effort and Inspection: able to speak in complete sentences Extremity Extremity Narrative: Bilateral 3+ pitting edema. Skin Wounds: wounds noted Neuro oriented x3, CN's II-XII intact bilaterally and moves all extremities Psych mental status grossly normal, thought process normal, cooperative, affect normal and speech normal Debridement Note Debridement Note Wound debrided: Right lower extremity cluster Type of Debridement: Excisional debridement Anesthesia Used: 4% Lidocaine Solution Depth: Down to and including healthy tissue and in the subcutaneous layer Percentage of wound debrided: 100 Instrument Used: 5mm curette Tissue Removed: Slough and devitalized tissue Severity: Fat Layer Exposed Amount of bleeding with debridement: Mild Bleeding Controlled with: Pressure Patient tolerated procedure: Patient tolerated procedure well Post-Debridement Measurements and Additional Note: Post-Debridement Measurements/Treatment - Nurse 1 - General Ulcer Assessment Start: 05/25/22 13:33 Freq: Status: Active Protocol: LEONARDAlchemyAPIMAYKEL Activity Type Activity Date Activity User E-sign Co-sign Detail Recorded Client Recorded Date Recorded By Document 05/25/22 13:33 [facility] [id number] 05/25/22 13:37 [facility] Document 06/01/22 13:12 [facility] [id number] 06/01/22 13:16 [facility] Document 06/03/22 10:05 [facility] [id number] 06/03/22 10:20 [facility] 05/25/22 06/01/22 06/03/22 13:33 13:12 10:05 - Today's Visit Information Type of service Nurse-only Nurse-only Follow-up Visit Visit Visit (Physician/POWDER LOADER ) Arrival Mode Ambulatory, Ambulatory, Ambulatory, Walker Walker Walker Transfer Assistance None None None Patient Identification Verified (Name & Yes Yes ) Patient Requires Transmission-Based No No No Precautions Height and Weight Body Mass Index (BMI) 53.6 53.6 53.6 BMI Classification Obese Obese Obese Vital Signs Temperature (97.8 F-99.1 F) 96.8 F L 96.8 F L 96.5 F L Temperature Source Temporal Temporal Temporal Pulse Rate (60-100) 88 95 95 Pulse Location Monitor Monitor Monitor Respiratory Rate (12-18) 16 16 Respiratory rate source Observation Observation Observation Oxygen Delivery Method Room Air Room Air Room Air Blood Pressure (90/60-120/80) 146/78 H 131/98 H 123/86 H Blood Pressure Mean (mm Hg) 100 109 98 Source Monitor Monitor Monitor Position Sitting Sitting Sitting Blood Pressure Location Right Arm Left Forearm Left Arm History Since Last Visit- (Skip if this is Patient's initial visit) Have you changed medications since your No No No last visit? Any new allergies or adverse reactions No No No Had a fall/change in ADL's that may No No No increase risk of falls Signs or symptoms of abuse and/or No No No neglect since last visit Have you been in the hospital since your No No No last visit? Has dressing in place as prescribed No Yes Has compression in place as prescribed No Has offloadiing in place as prescribed N/A N/A Experienced any changes in pain level or No No management Left Footwear Surgical Shoe Regular Shoe Regular Shoe with pressure relief insole Right Footwear Regular Shoe Regular Shoe Regular Shoe Other Footwear PT SHOWERED REMOVED WRAPS PRIOR TO VISIT TO SHOWER PRIOR AND REMOVED TO VISIT DRSG/ COMPRESSION Pain Scale: 0-10 Numeric Is Patient Pain Free? Yes Yes Yes WC - Nurse 1 - General Ulcer Measurement Start: 05/25/22 13:33 Freq: Status: Active Protocol: Activity Type Activity Date Activity User E-sign Co-sign Detail Recorded Client Recorded Date Recorded By Document 06/01/22 13:12 [facility] [id number] 06/01/22 13:16 [facility] Document 06/03/22 10:05 [facility] [id number] 06/03/22 10:20 [facility] 06/01/22 06/03/22 13:12 10:05 Wound Center Nurse 1 #2 R Lat LE Cluster -Combined with other wound No -Current Size (cm) - Length 0.1 -Current Size (cm) - Width 0.1 -Current Size (cm) - Depth 0.1 -Total Square Cm 0.01 -Date of Last Picture (Recall this 06/03/22 field) -Photo Taken Yes -Epithelialization Large 67-100% #5 Left medial LE -Combined with other wound No -Current Size (cm) - Length 2.4 -Current Size (cm) - Width 2.5 -Current Size (cm) - Depth 0.1 -Total Square Cm 6.00 -Date of Last Picture (Recall this 06/03/22 field) -Photo Taken Yes -Epithelialization Small 1-33% -Tunneling No -Undermining/Tunneling No -Circular Undermining No -Exudate Amt Small -Exudate Type Serosanguineous -Wound Margin Distinct, Outline Attached -Granulation Amt Large (67-100%) -Granulation Quality Red -Slough/Fibrin Yes -Necrosis Amt Small (1-33%) -Necrotic Tissue Type Adherent Slough -Texture (Ni-wound Skin Appearance) Assessed, Scarring -Moisture (Ni-wound Skin Appearance) Assessed,Dry/ Scaly -Color (Ni-wound Skin Appearance) Assessed -Temperature (Ni-wound Skin No Abnormality Appearance) (Pt Warm) -Tenderness on Palpation (Ni-wound No Skin Appearance) -Ulcer Cleansing Rinsed/ Irrigated with Saline -Foul Odor after Cleansing No -Anesthetic Used 4% Lidocaine Solution #4 L dorsal foot -Combined with other wound No -Current Size (cm) - Length 1.6 -Current Size (cm) - Width 1.4 -Current Size (cm) - Depth 0.2 -Total Square Cm 2.24 -Date of Last Picture (Recall this 06/03/22 field) -Photo Taken Yes -Epithelialization Small 1-33% -Tunneling No -Undermining/Tunneling No -Circular Undermining No -Exudate Amt Small -Exudate Type Serosanguineous -Wound Margin Distinct, Outline Attached -Granulation Amt Small (1-33%) -Granulation Quality Red -Slough/Fibrin Yes -Necrosis Amt Large (67-100%) -Necrotic Tissue Type Adherent Slough -Texture (Ni-wound Skin Appearance) Assessed, Scarring -Moisture (Ni-wound Skin Appearance) Assessed,Dry/ Scaly -Color (Ni-wound Skin Appearance) Assessed -Temperature (Ni-wound Skin No Abnormality Appearance) (Pt Warm) -Tenderness on Palpation (Ni-wound No Skin Appearance) -Ulcer Cleansing Rinsed/ Irrigated with Saline -Foul Odor after Cleansing Yes, Due to Product Use -Anesthetic Used 4% Lidocaine Solution #3 R dorsal foot -Combined with other wound No -Current Size (cm) - Length 0.5 -Current Size (cm) - Width 1.3 -Current Size (cm) - Depth 0.1 -Total Square Cm 0.65 -Date of Last Picture (Recall this 06/03/22 field) -Photo Taken Yes -Epithelialization Small 1-33% -Tunneling No -Undermining/Tunneling No -Circular Undermining No -Exudate Amt Small -Exudate Type Serosanguineous -Wound Margin Distinct, Outline Attached -Granulation Amt Medium (34-66%) -Granulation Quality Red -Slough/Fibrin Yes -Necrosis Amt Medium (34-66%) -Necrotic Tissue Type Adherent Slough -Texture (Ni-wound Skin Appearance) Assessed, Scarring -Moisture (Ni-wound Skin Appearance) Assessed,Dry/ Scaly -Color (Ni-wound Skin Appearance) Assessed -Temperature (Ni-wound Skin No Abnormality Appearance) (Pt Warm) -Tenderness on Palpation (Ni-wound No Skin Appearance) -Ulcer Cleansing Rinsed/ Irrigated with Saline -Foul Odor after Cleansing No -Anesthetic Used 4% Lidocaine Solution #1 R giordano Med -Combined with other wound No -Current Size (cm) - Length 2.2 -Current Size (cm) - Width 2 -Current Size (cm) - Depth 0.1 -Total Square Cm 4.4 -Date of Last Picture (Recall this 06/03/22 field) -Photo Taken Yes -Epithelialization Small 1-33% -Tunneling No -Undermining/Tunneling No -Circular Undermining No -Exudate Amt Small -Exudate Type Serosanguineous -Wound Margin Distinct, Outline Attached -Granulation Amt Small (1-33%) -Granulation Quality Pale -Slough/Fibrin Yes -Necrosis Amt Large (67-100%) -Necrotic Tissue Type Adherent Slough -Texture (Ni-wound Skin Appearance) Assessed, Scarring -Moisture (Ni-wound Skin Appearance) Assessed,Dry/ Scaly -Color (Ni-wound Skin Appearance) Assessed -Temperature (Ni-wound Skin No Abnormality Appearance) (Pt Warm) -Tenderness on Palpation (Ni-wound No Skin Appearance) -Ulcer Cleansing Rinsed/ Irrigated with Saline -Foul Odor after Cleansing No -Anesthetic Used 4% Lidocaine Solution Lower Limb Edema Present Yes Yes Right Calf (cm) 52.8 54 Right Ankle (cm) 37.4 36.1 Left Calf (cm) 55 52.5 Left Ankle (cm) 40 40.7 WC - Nurse 2 - General Ulcer CM Notes Start: 05/25/22 13:33 Freq: Status: Active Protocol: Activity Type Activity Date Activity User E-sign Co-sign Detail Recorded Client Recorded Date Recorded By Document 06/03/22 10:38 MW [id number] 06/03/22 10:46 MW 06/03/22 10:38 Wound Center Nurse 2 #2 R Lat LE Cluster -Time 10:42 -Correct Patient Yes -Correct Side, Site, Position Yes -Correct Procedure Yes -Procedure Performed No -Post Debridement (cm) - Length 0 -Post Debridement (cm) - Width 0 -Post Debridement (cm) - Depth 0 -Total Square (Post) (cm) 0 -Tunneling No -Undermining/Tunneling No -Circular Undermining No -Wound/Ulcer Outcome Healed- Epithelialized #5 Left medial LE -Time 10:39 -Correct Patient Yes -Correct Side, Site, Position Yes -Correct Procedure Yes -Procedure Performed Yes -Type of Procedure Debridement -Clinical Debridement Subcutaneous -Tissue Removed Subcutaneous -Post Debridement (cm) - Length 7.5 -Post Debridement (cm) - Width 4.5 -Post Debridement (cm) - Depth 0.1 -Total Square (Post) (cm) 33.75 -Area of Debridement (cm) - Length 7.5 -Area of Debridement (cm) - Width 4.5 -Total Square (Area) (cm) 33.75 -Tunneling No -Undermining/Tunneling No -Circular Undermining No -Wound/Ulcer Outcome Not Healed -Ulcer Cleansing Rinsed/ Irrigated with Saline -Foul Odor after Cleansing No -Bioengineered Tissue No -Bleeding Controlled with Pressure -Treatment Response Procedure Tolerated Well -Offloading No -Debridement - Subq, 1st 20sq cm Yes -Debridement, SubQ, ea addt'l 20sq cm 1 or part thereof #4 L dorsal foot -Time 10:40 -Correct Patient Yes -Correct Side, Site, Position Yes -Correct Procedure Yes -Procedure Performed Yes -Type of Procedure Debridement -Clinical Debridement Subcutaneous -Tissue Removed Subcutaneous -Post Debridement (cm) - Length 1.5 -Post Debridement (cm) - Width 1.0 -Post Debridement (cm) - Depth 0.1 -Total Square (Post) (cm) 1.50 -Area of Debridement (cm) - Length 1.5 -Area of Debridement (cm) - Width 1.0 -Total Square (Area) (cm) 1.50 -Tunneling No -Undermining/Tunneling No -Circular Undermining No -Wound/Ulcer Outcome Not Healed -Ulcer Cleansing Rinsed/ Irrigated with Saline -Foul Odor after Cleansing No -Bioengineered Tissue No -Bleeding Controlled with Pressure -Treatment Response Procedure Tolerated Well -Offloading No -Debridement - Subq, 1st 20sq cm No #3 R dorsal foot -Time 10:41 -Correct Patient Yes -Correct Side, Site, Position Yes -Correct Procedure Yes -Procedure Performed Yes -Type of Procedure Debridement -Clinical Debridement Subcutaneous -Tissue Removed Subcutaneous -Post Debridement (cm) - Length 0.1 -Post Debridement (cm) - Width 0.1 -Post Debridement (cm) - Depth 0.1 -Total Square (Post) (cm) 0.01 -Area of Debridement (cm) - Length 0.1 -Area of Debridement (cm) - Width 0.1 -Total Square (Area) (cm) 0.01 -Tunneling No -Undermining/Tunneling No -Circular Undermining No -Wound/Ulcer Outcome Not Healed -Ulcer Cleansing Rinsed/ Irrigated with Saline -Foul Odor after Cleansing No -Bioengineered Tissue No -Bleeding Controlled with Pressure -Treatment Response Procedure Tolerated Well -Offloading No -Debridement - Subq, 1st 20sq cm No #1 R giordano Med -Time 10:43 -Correct Patient Yes -Correct Side, Site, Position Yes -Correct Procedure Yes -Procedure Performed Yes -Type of Procedure Debridement -Clinical Debridement Subcutaneous -Tissue Removed Subcutaneous -Post Debridement (cm) - Length 2.1 -Post Debridement (cm) - Width 2.0 -Post Debridement (cm) - Depth 0.1 -Total Square (Post) (cm) 4.20 -Area of Debridement (cm) - Length 2.1 -Area of Debridement (cm) - Width 2.0 -Total Square (Area) (cm) 4.20 -Tunneling No -Undermining/Tunneling No -Circular Undermining No -Wound/Ulcer Outcome Not Healed -Ulcer Cleansing Rinsed/ Irrigated with Saline -Foul Odor after Cleansing No -Bioengineered Tissue No -Bleeding Controlled with Pressure -Treatment Response Procedure Tolerated Well -Offloading No -Debridement - Subq, 1st 20sq cm No Pain Scale: 0-10 Numeric Is Patient Pain Free? Yes WC - Nurse 3 - General Ulcer D/C NN Start: 05/25/22 13:33 Freq: Status: Active Protocol: Activity Type Activity Date Activity User E-sign Co-sign Detail Recorded Client Recorded Date Recorded By Document 05/25/22 13:33 [facility] [id number] 05/25/22 13:37 BMF Edit Result 05/25/22 13:33 BMF (1) [id number] 05/26/22 06:47 PL Document 06/01/22 13:12 [facility] [id number] 06/01/22 13:16 BMF Edit Result 06/01/22 13:12 BMF (2) [id number] 06/02/22 07:34 PL Document 06/03/22 11:08 [facility] [id number] 06/03/22 11:09 BMF (1) Bilateral - Multi-Layered Wrap Application => Multi-Layer Comp - => Bilat ($) Right - Multi-Layered Wrap Application Multi-Layer Comp - => Right ($) => Left - Multi-Layered Wrap Application Multi-Layer Comp - => Left ($) => (2) Bilateral - Multi-Layered Wrap Application => Multi-Layer Comp - => Bilat ($) Right - Multi-Layered Wrap Application Multi-Layer Comp - => Right ($) => Left - Multi-Layered Wrap Application Multi-Layer Comp - => Left ($) => 05/25/22 06/01/22 06/03/22 13:33 13:12 11:08 Vital Signs Temperature (97.8 F-99.1 F) 96.8 F L 96.8 F L Temperature Source Temporal Temporal Pulse Rate (60-100) 88 95 Pulse Location Monitor Monitor Respiratory Rate (12-18) 16 16 Respiratory rate source Observation Observation Oxygen Delivery Method Room Air Room Air Blood Pressure (90/60-120/80) 146/78 H 131/98 H Blood Pressure Mean (mm Hg) 100 109 Source Monitor Monitor Position Sitting Sitting Blood Pressure Location Right Arm Left Forearm Pain Scale: 0-10 Numeric Is Patient Pain Free? Yes Yes Yes Wound Care Nurse 3 #2 R Lat LE Cluster -Ulcer Cleansing Rinsed/ Soap and Water Irrigated with Saline -Foul Odor after Cleansing No No -Primary Dressing Applied Fibracol Plus Fibracol Plus 4x4,NonAdherent 4x4,NonAdherent Contact Layer Contact Layer -Other Dressing DRSG PER DL SOFTWARE DEPLOYMENT ENGINEER -Other Covering ABD -Fibracol Plus 4x4 0 0 #5 Left medial LE -Ulcer Cleansing Soap and Water Rinsed/ Irrigated with Saline -Foul Odor after Cleansing No No -Primary Dressing Applied Fibracol Plus Fibracol Plus Fibracol Plus 4x4,NonAdherent 4x4,NonAdherent 4x4,NonAdherent Contact Layer Contact Layer Contact Layer -Other Dressing ABD DRSG PER DL SOFTWARE DEPLOYMENT ENGINEER abd -Fibracol Plus 4x4 1 1 1 #4 L dorsal foot -Ulcer Cleansing Rinsed/ Soap and Water Rinsed/ Irrigated with Irrigated with Saline Saline -Foul Odor after Cleansing No No No -Primary Dressing Applied Fibracol Plus Fibracol Plus Fibracol Plus 4x4,NonAdherent 4x4,NonAdherent 4x4,NonAdherent Contact Layer Contact Layer Contact Layer -Other Dressing DRSG PER DL SOFTWARE DEPLOYMENT ENGINEER abd -Primary Dressing Covered/Secured with Dry Gauze -Fibracol Plus 4x4 0 0 0 #3 R dorsal foot -Ulcer Cleansing Rinsed/ Soap and Water Rinsed/ Irrigated with Irrigated with Saline Saline -Foul Odor after Cleansing No No No -Primary Dressing Applied Fibracol Plus Fibracol Plus Fibracol Plus 4x4,NonAdherent 4x4,NonAdherent 4x4,NonAdherent Contact Layer Contact Layer Contact Layer -Other Dressing DRSG PER DL SOFTWARE DEPLOYMENT ENGINEER abd -Primary Dressing Covered/Secured with Dry Gauze -Fibracol Plus 4x4 0 0 0 #1 R giordano Med -Ulcer Cleansing Rinsed/ Rinsed/ Irrigated with Irrigated with Saline Saline -Foul Odor after Cleansing No No -Primary Dressing Applied Fibracol Plus Fibracol Plus 4x4,NonAdherent 4x4,NonAdherent Contact Layer Contact Layer -Other Dressing abd -Other Covering ABD -Fibracol Plus 4x4 0 0 Bilateral -Multi-Layered Wrap Application Multi-Layer Multi-Layer Comp - Bilat ($ Comp - Bilat ($ ) ) Right -Lotion applied to leg before No compression wrap -Multi-Layered Wrap Application Multi-Layer Comp - Right ($ ) -Other 3M WRAPS PER DL SOFTWARE DEPLOYMENT ENGINEER Left -Multi-Layered Wrap Application Multi-Layer Comp - Left ($) -Other 3M WRAPS PER DL SOFTWARE DEPLOYMENT ENGINEER Treatment Response Procedure Procedure Procedure Tolerated Well Tolerated Well Tolerated Well WC - Visit Discharge Discharge Condition Stable Stable Stable Ambulatory Status Ambulatory, Ambulatory, Ambulatory, Walker Walker Walker Transportation Private Auto Private Auto Private Auto Additional Wound Wound debrided: Left dorsal foot Type of Debridement: Excisional debridement Anesthesia Used: 4% Lidocaine Solution Depth: Down to and including healthy tissue and in the subcutaneous layer Percentage of wound debrided: 100 Instrument Used: 5mm curette Tissue Removed: Slough and devitalized tissue Severity: Fat Layer Exposed Bleeding Controlled with: Pressure Patient tolerated procedure: Patient tolerated procedure well Additional Wound Wound debrided: Left lower extremity cluster Type of Debridement: Excisional debridement Anesthesia Used: 4% Lidocaine Solution Depth: Down to and including healthy tissue and in the subcutaneous layer Percentage of wound debrided: 100 Instrument Used: 5mm curette Tissue Removed: Slough and devitalized tissue Severity: Fat Layer Exposed Amount of bleeding with debridement: Mild Bleeding Controlled with: Pressure Patient tolerated procedure: Patient tolerated procedure well Assessment/Plan Assessment/Plan (1) Ulcer of left lower extremity with fat layer exposed: CODE(S): L97.922 - Non-pressure chronic ulcer of unspecified part of left lower leg with fat layer exposed (2) Ulcer of right lower extremity with fat layer exposed: CODE(S): L97.912 - Non-pressure chronic ulcer of unspecified part of right lower leg with fat layer exposed (3) Ulcer of left foot with fat layer exposed: CODE(S): L97.522 - Non-pressure chronic ulcer of other part of left foot with fat layer exposed (4) Ulcer of right foot with fat layer exposed: CODE(S): L97.512 - Non-pressure chronic ulcer of other part of right foot with fat layer exposed (5) Morbid obesity: CODE(S): E66.01 - Morbid (severe) obesity due to excess calories (6) Atrial fibrillation: CODE(S): I48.91 - Unspecified atrial fibrillation (7) Lymphedema: CODE(S): I89.0 - Lymphedema, not elsewhere classified PLAN: Plan Continues to show good improvement. Debridement done as documented above, procedure was well-tolerated. Continue Fibracol to open areas with Adaptic over top and 3M wrap for edema management. Leave on for a week. Continue lymphedema pump and 50 mmHg for 30 minutes at a time for up to 1 hour a day. Continue exercise as tolerated and weight loss. Optimal protein intake which he states that he already does. Vitamin C, D and zinc. His questions were answered and he was advised to call with any further questions or concerns. Follow-up in 1 week. This note was generated with Hal[employer] software. It may contain incorrect words, spelling, and punctuation that were not noted in checking the note before signing.
[2022-06-10 09:46] VITALS: BP 112/70; PULSE 78; RESP 16; TEMP 36.4; BMI 53.6
--- NOTE | 2022-06-10 10:31 | PCM.WC.PN ---
History of Present Illness Date of Service: 06/10/22 Chief Complaint: Bilateral lower extremity ulcers History of Wound: Mr. Mayo is a 62-year-old who presents to the wound center due to nonhealing bilateral lower extremity ulcers. He states it started about 2 months ago. Chronic bilateral lower extremity swelling with difficulty wearing shoes and moving his lower extremities. Had some blister formation which subsequently opened up on rubbing from his shoes. Leg ulcer is said to have opened up on rubbing from his compression. Primary care physician had attempted care without any significant improvement. He denies any history of diabetes mellitus stating that his last A1c was in the fives. He sits for at least 10 hours at work taking short breaks. Currently at a BMI of 53.7. He denies chills, fever or otherwise feeling of unwell. Progress of Wound: Improving. Tolerated 3M wraps for the whole week. No new concerns reported. Objective Data Objective Data Vital Signs: Vital Signs Temp Pulse Resp BP O2 Del Method 97.5 F L 78 16 112/70 Room Air 06/10/22 09:46 06/10/22 09:46 06/10/22 09:46 06/10/22 09:46 06/10/22 09:46 Oxygen Delivery Method Room Air Weight: 450 lb 1.282 oz Body Mass Index (BMI) 53.6 Charges/Coding Procedures Integumentary 111xxx-113xx: 26222 January subq tissue 20 sq cm/< Physical Exam Const alert, oriented x3 and no apparent distress General Appearance: cooperative, comfortable and well kempt HEENT normocephalic, head/scalp atraumatic and hearing grossly normal bilaterally Head and Scalp: normal to inspection, normocephalic and atraumatic Eyes EOMs intact bilaterally Neck full ROM General: normal visual inspection Resp normal respiratory effort Effort and Inspection: able to speak in complete sentences Extremity Extremity Narrative: Bilateral 3+ pitting edema. Skin Wounds: wounds noted Neuro oriented x3, CN's II-XII intact bilaterally and moves all extremities Psych mental status grossly normal, thought process normal, cooperative, affect normal and speech normal Debridement Note Debridement Note Wound debrided: Right lower extremity (medial) Type of Debridement: Excisional debridement Anesthesia Used: 4% Lidocaine Solution Depth: Down to and including healthy tissue and in the subcutaneous layer Percentage of wound debrided: 100 Instrument Used: 5mm curette Tissue Removed: Slough and devitalized tissue Severity: Fat Layer Exposed Amount of bleeding with debridement: Mild Bleeding Controlled with: Pressure Patient tolerated procedure: Patient tolerated procedure well Post-Debridement Measurements and Additional Note: Post-Debridement Measurements/Treatment - Nurse 1 - General Ulcer Assessment Start: 05/25/22 13:33 Freq: Status: Active Protocol: [email or web address].JORGE Activity Type Activity Date Activity User E-sign Co-sign Detail Recorded Client Recorded Date Recorded By Document 05/25/22 13:33 [facility] [id number] 05/25/22 13:37 [facility] Document 06/01/22 13:12 [facility] [id number] 06/01/22 13:16 [facility] Document 06/03/22 10:05 [facility] [id number] 06/03/22 10:20 [facility] Document 06/10/22 09:46 [facility] [id number] 06/10/22 09:58 [facility] 05/25/22 06/01/22 06/03/22 13:33 13:12 10:05 - Today's Visit Information Type of service Nurse-only Nurse-only Follow-up Visit Visit Visit (Physician/APPLICATION DEVELOPMENT LIAISON ) Arrival Mode Ambulatory, Ambulatory, Ambulatory, Walker Walker Walker Transfer Assistance None None None Patient Identification Verified (Name & Yes Yes ) Patient Requires Transmission-Based No No No Precautions Height and Weight Body Mass Index (BMI) 53.6 53.6 53.6 BMI Classification Obese Obese Obese Vital Signs Temperature (97.8 F-99.1 F) 96.8 F L 96.8 F L 96.5 F L Temperature Source Temporal Temporal Temporal Pulse Rate (60-100) 88 95 95 Pulse Location Monitor Monitor Monitor Respiratory Rate (12-18) 16 16 Respiratory rate source Observation Observation Observation Oxygen Delivery Method Room Air Room Air Room Air Blood Pressure (90/60-120/80) 146/78 H 131/98 H 123/86 H Blood Pressure Mean (mm Hg) 100 109 98 Source Monitor Monitor Monitor Position Sitting Sitting Sitting Blood Pressure Location Right Arm Left Forearm Left Arm History Since Last Visit- (Skip if this is Patient's initial visit) Have you changed medications since your No No No last visit? Any new allergies or adverse reactions No No No Had a fall/change in ADL's that may No No No increase risk of falls Signs or symptoms of abuse and/or No No No neglect since last visit Have you been in the hospital since your No No No last visit? Has dressing in place as prescribed No Yes Has compression in place as prescribed No Has offloadiing in place as prescribed N/A N/A Experienced any changes in pain level or No No management Left Footwear Surgical Shoe Regular Shoe Regular Shoe with pressure relief insole Right Footwear Regular Shoe Regular Shoe Regular Shoe Other Footwear PT SHOWERED REMOVED WRAPS PRIOR TO VISIT TO SHOWER PRIOR AND REMOVED TO VISIT DRSG/ COMPRESSION Pain Scale: 0-10 Numeric Is Patient Pain Free? Yes Yes Yes 06/10/22 09:46 WC - Today's Visit Information Type of service Follow-up Visit (Physician/APPLICATION DEVELOPMENT LIAISON ) Arrival Mode Ambulatory, Walker Transfer Assistance None Patient Identification Verified (Name & Yes ) Patient Requires Transmission-Based No Precautions Height and Weight Body Mass Index (BMI) 53.6 BMI Classification Obese Vital Signs Temperature (97.8 F-99.1 F) 97.5 F L Temperature Source Temporal Pulse Rate (60-100) 78 Pulse Location Monitor Respiratory Rate (12-18) 16 Respiratory rate source Observation Oxygen Delivery Method Room Air Blood Pressure (90/60-120/80) 112/70 Blood Pressure Mean (mm Hg) 84 Source Monitor Position Sitting Blood Pressure Location Left Arm History Since Last Visit- (Skip if this is Patient's initial visit) Have you changed medications since your No last visit? Any new allergies or adverse reactions No Had a fall/change in ADL's that may No increase risk of falls Signs or symptoms of abuse and/or No neglect since last visit Have you been in the hospital since your No last visit? Has dressing in place as prescribed No Has compression in place as prescribed No Has offloadiing in place as prescribed N/A Experienced any changes in pain level or No management Left Footwear Diabetic Shoe Right Footwear Custom Shoe Other Footwear removed wraps for shower prior to appt Pain Scale: 0-10 Numeric Is Patient Pain Free? Yes - Nurse 1 - General Ulcer Measurement Start: 05/25/22 13:33 Freq: Status: Active Protocol: Activity Type Activity Date Activity User E-sign Co-sign Detail Recorded Client Recorded Date Recorded By Document 06/01/22 13:12 [facility] [id number] 06/01/22 13:16 [facility] Document 06/03/22 10:05 [facility] [id number] 06/03/22 10:20 [facility] Document 06/10/22 09:46 [facility] [id number] 06/10/22 09:58 [facility] 06/01/22 06/03/22 06/10/22 13:12 10:05 09:46 Wound Center Nurse 1 #2 R Lat LE Cluster -Combined with other wound No -Current Size (cm) - Length 0.1 -Current Size (cm) - Width 0.1 -Current Size (cm) - Depth 0.1 -Total Square Cm 0.01 -Date of Last Picture (Recall this 06/03/22 field) -Photo Taken Yes -Epithelialization Large 67-100% #5 Left medial LE -Combined with other wound No No -Current Size (cm) - Length 2.4 0.1 -Current Size (cm) - Width 2.5 0.1 -Current Size (cm) - Depth 0.1 0.1 -Total Square Cm 6.00 0.01 -Date of Last Picture (Recall this 06/03/22 06/10/22 field) -Photo Taken Yes Yes -Epithelialization Small 1-33% Large 67-100% -Tunneling No No -Undermining/Tunneling No No -Circular Undermining No No -Exudate Amt Small None Present -Exudate Type Serosanguineous -Wound Margin Distinct, Outline Attached -Granulation Amt Large (67-100%) -Granulation Quality Red -Slough/Fibrin Yes -Necrosis Amt Small (1-33%) -Necrotic Tissue Type Adherent Slough -Texture (Ni-wound Skin Appearance) Assessed, Assessed, Scarring Scarring -Moisture (Ni-wound Skin Appearance) Assessed,Dry/ Assessed,Dry/ Scaly Scaly -Color (Ni-wound Skin Appearance) Assessed Assessed -Temperature (Ni-wound Skin No Abnormality No Abnormality Appearance) (Pt Warm) (Pt Warm) -Tenderness on Palpation (Ni-wound No No Skin Appearance) -Ulcer Cleansing Rinsed/ Rinsed/ Irrigated with Irrigated with Saline Saline -Foul Odor after Cleansing No No -Anesthetic Used 4% Lidocaine Solution #4 L dorsal foot -Combined with other wound No No -Current Size (cm) - Length 1.6 1.5 -Current Size (cm) - Width 1.4 1.3 -Current Size (cm) - Depth 0.2 0.2 -Total Square Cm 2.24 1.95 -Date of Last Picture (Recall this 06/03/22 06/10/22 field) -Photo Taken Yes Yes -Epithelialization Small 1-33% None Present -Tunneling No No -Undermining/Tunneling No No -Circular Undermining No No -Exudate Amt Small None Present -Exudate Type Serosanguineous -Wound Margin Distinct, Distinct, Outline Outline Attached Attached -Granulation Amt Small (1-33%) None Present (0 %) -Granulation Quality Red -Slough/Fibrin Yes Yes -Necrosis Amt Large (67-100%) Large (67-100%) -Necrotic Tissue Type Adherent Slough Adherent Slough -Texture (Ni-wound Skin Appearance) Assessed, Assessed, Scarring Scarring -Moisture (Ni-wound Skin Appearance) Assessed,Dry/ Assessed,Dry/ Scaly Scaly -Color (Ni-wound Skin Appearance) Assessed Assessed -Temperature (Ni-wound Skin No Abnormality No Abnormality Appearance) (Pt Warm) (Pt Warm) -Tenderness on Palpation (Ni-wound No No Skin Appearance) -Ulcer Cleansing Rinsed/ Rinsed/ Irrigated with Irrigated with Saline Saline -Foul Odor after Cleansing Yes, Due to No Product Use -Anesthetic Used 4% Lidocaine 4% Lidocaine Solution Solution #3 R dorsal foot -Combined with other wound No No -Current Size (cm) - Length 0.5 0.1 -Current Size (cm) - Width 1.3 0.1 -Current Size (cm) - Depth 0.1 0.1 -Total Square Cm 0.65 0.01 -Date of Last Picture (Recall this 06/03/22 06/10/22 field) -Photo Taken Yes Yes -Epithelialization Small 1-33% Large 67-100% -Tunneling No No -Undermining/Tunneling No No -Circular Undermining No No -Exudate Amt Small -Exudate Type Serosanguineous -Wound Margin Distinct, Outline Attached -Granulation Amt Medium (34-66%) -Granulation Quality Red -Slough/Fibrin Yes -Necrosis Amt Medium (34-66%) -Necrotic Tissue Type Adherent Slough -Texture (Ni-wound Skin Appearance) Assessed, Assessed Scarring -Moisture (Ni-wound Skin Appearance) Assessed,Dry/ Assessed Scaly -Color (Ni-wound Skin Appearance) Assessed Assessed -Temperature (Ni-wound Skin No Abnormality Appearance) (Pt Warm) -Tenderness on Palpation (Ni-wound No Skin Appearance) -Ulcer Cleansing Rinsed/ Irrigated with Saline -Foul Odor after Cleansing No -Anesthetic Used 4% Lidocaine Solution #1 R giordano Med -Combined with other wound No No -Current Size (cm) - Length 2.2 1.9 -Current Size (cm) - Width 2 1.4 -Current Size (cm) - Depth 0.1 0.1 -Total Square Cm 4.4 2.66 -Date of Last Picture (Recall this 06/03/22 06/10/22 field) -Photo Taken Yes Yes -Epithelialization Small 1-33% None Present -Tunneling No No -Undermining/Tunneling No No -Circular Undermining No No -Exudate Amt Small None Present -Exudate Type Serosanguineous -Wound Margin Distinct, Distinct, Outline Outline Attached Attached -Granulation Amt Small (1-33%) Medium (34-66%) -Granulation Quality Pale Red -Slough/Fibrin Yes Yes -Necrosis Amt Large (67-100%) Small (1-33%) -Necrotic Tissue Type Adherent Slough Adherent Slough -Texture (Ni-wound Skin Appearance) Assessed, Assessed, Scarring Scarring -Moisture (Ni-wound Skin Appearance) Assessed,Dry/ Assessed Scaly -Color (Ni-wound Skin Appearance) Assessed Assessed -Temperature (Ni-wound Skin No Abnormality No Abnormality Appearance) (Pt Warm) (Pt Warm) -Tenderness on Palpation (Ni-wound No No Skin Appearance) -Ulcer Cleansing Rinsed/ Rinsed/ Irrigated with Irrigated with Saline Saline -Foul Odor after Cleansing No No -Anesthetic Used 4% Lidocaine 4% Lidocaine Solution Solution Lower Limb Edema Present Yes Yes Yes Right Calf (cm) 52.8 54 49.8 Right Ankle (cm) 37.4 36.1 32.2 Left Calf (cm) 55 52.5 51.8 Left Ankle (cm) 40 40.7 35.8 WC - Nurse 2 - General Ulcer CM Notes Start: 05/25/22 13:33 Freq: Status: Active Protocol: Activity Type Activity Date Activity User E-sign Co-sign Detail Recorded Client Recorded Date Recorded By Document 06/03/22 10:38 MW [id number] 06/03/22 10:46 MW Document 06/10/22 10:09 MW [id number] 06/10/22 10:17 MW 06/03/22 06/10/22 10:38 10:09 Wound Center Nurse 2 #2 R Lat LE Cluster -Time 10:42 -Correct Patient Yes -Correct Side, Site, Position Yes -Correct Procedure Yes -Procedure Performed No -Post Debridement (cm) - Length 0 -Post Debridement (cm) - Width 0 -Post Debridement (cm) - Depth 0 -Total Square (Post) (cm) 0 -Tunneling No -Undermining/Tunneling No -Circular Undermining No -Wound/Ulcer Outcome Healed- Epithelialized #5 Left medial LE -Time 10:39 10:09 -Correct Patient Yes Yes -Correct Side, Site, Position Yes Yes -Correct Procedure Yes Yes -Procedure Performed Yes Yes -Type of Procedure Debridement Debridement -Clinical Debridement Subcutaneous Subcutaneous -Tissue Removed Subcutaneous Subcutaneous -Post Debridement (cm) - Length 7.5 0.1 -Post Debridement (cm) - Width 4.5 0.1 -Post Debridement (cm) - Depth 0.1 0.1 -Total Square (Post) (cm) 33.75 0.01 -Area of Debridement (cm) - Length 7.5 0.1 -Area of Debridement (cm) - Width 4.5 0.1 -Total Square (Area) (cm) 33.75 0.01 -Tunneling No No -Undermining/Tunneling No No -Circular Undermining No No -Wound/Ulcer Outcome Not Healed Not Healed -Ulcer Cleansing Rinsed/ Rinsed/ Irrigated with Irrigated with Saline Saline -Foul Odor after Cleansing No No -Bioengineered Tissue No No -Bleeding Controlled with Pressure Pressure -Treatment Response Procedure Procedure Tolerated Well Tolerated Well -Offloading No No -Debridement - Subq, 1st 20sq cm Yes No -Debridement, SubQ, ea addt'l 20sq cm 1 or part thereof #4 L dorsal foot -Time 10:40 10:09 -Correct Patient Yes Yes -Correct Side, Site, Position Yes Yes -Correct Procedure Yes Yes -Procedure Performed Yes Yes -Type of Procedure Debridement Debridement -Clinical Debridement Subcutaneous Subcutaneous -Tissue Removed Subcutaneous Subcutaneous -Post Debridement (cm) - Length 1.5 0.7 -Post Debridement (cm) - Width 1.0 1.5 -Post Debridement (cm) - Depth 0.1 0.2 -Total Square (Post) (cm) 1.50 1.05 -Area of Debridement (cm) - Length 1.5 0.7 -Area of Debridement (cm) - Width 1.0 1.5 -Total Square (Area) (cm) 1.50 1.05 -Tunneling No No -Undermining/Tunneling No No -Circular Undermining No No -Wound/Ulcer Outcome Not Healed Not Healed -Ulcer Cleansing Rinsed/ Rinsed/ Irrigated with Irrigated with Saline Saline -Foul Odor after Cleansing No No -Bioengineered Tissue No No -Bleeding Controlled with Pressure Pressure -Treatment Response Procedure Procedure Tolerated Well Tolerated Well -Offloading No No -Debridement - Subq, 1st 20sq cm No Yes #3 R dorsal foot -Time 10:41 10:10 -Correct Patient Yes Yes -Correct Side, Site, Position Yes Yes -Correct Procedure Yes Yes -Procedure Performed Yes Yes -Type of Procedure Debridement Debridement -Clinical Debridement Subcutaneous Subcutaneous -Tissue Removed Subcutaneous Subcutaneous -Post Debridement (cm) - Length 0.1 0.1 -Post Debridement (cm) - Width 0.1 0.1 -Post Debridement (cm) - Depth 0.1 0.1 -Total Square (Post) (cm) 0.01 0.01 -Area of Debridement (cm) - Length 0.1 0.1 -Area of Debridement (cm) - Width 0.1 0.1 -Total Square (Area) (cm) 0.01 0.01 -Tunneling No No -Undermining/Tunneling No No -Circular Undermining No No -Wound/Ulcer Outcome Not Healed Not Healed -Ulcer Cleansing Rinsed/ Rinsed/ Irrigated with Irrigated with Saline Saline -Foul Odor after Cleansing No No -Bioengineered Tissue No No -Bleeding Controlled with Pressure Pressure -Treatment Response Procedure Procedure Tolerated Well Tolerated Well -Offloading No No -Debridement - Subq, 1st 20sq cm No No #1 R giordano Med -Time 10:43 10:10 -Correct Patient Yes Yes -Correct Side, Site, Position Yes Yes -Correct Procedure Yes Yes -Procedure Performed Yes Yes -Type of Procedure Debridement Debridement -Clinical Debridement Subcutaneous Subcutaneous -Tissue Removed Subcutaneous Subcutaneous -Post Debridement (cm) - Length 2.1 2.5 -Post Debridement (cm) - Width 2.0 1.5 -Post Debridement (cm) - Depth 0.1 0.1 -Total Square (Post) (cm) 4.20 3.75 -Area of Debridement (cm) - Length 2.1 2.5 -Area of Debridement (cm) - Width 2.0 1.5 -Total Square (Area) (cm) 4.20 3.75 -Tunneling No No -Undermining/Tunneling No No -Circular Undermining No No -Wound/Ulcer Outcome Not Healed Not Healed -Ulcer Cleansing Rinsed/ Rinsed/ Irrigated with Irrigated with Saline Saline -Foul Odor after Cleansing No No -Bioengineered Tissue No No -Bleeding Controlled with Pressure Pressure -Treatment Response Procedure Procedure Tolerated Well Tolerated Well -Offloading No No -Debridement - Subq, 1st 20sq cm No No Pain Scale: 0-10 Numeric Is Patient Pain Free? Yes Yes WC - Nurse 3 - General Ulcer D/C NN Start: 05/25/22 13:33 Freq: Status: Active Protocol: Activity Type Activity Date Activity User E-sign Co-sign Detail Recorded Client Recorded Date Recorded By Document 05/25/22 13:33 BMF [id number] 05/25/22 13:37 BMF Edit Result 05/25/22 13:33 BMF (1) [id number] 05/26/22 06:47 PL Document 06/01/22 13:12 BMF [id number] 06/01/22 13:16 BMF Edit Result 06/01/22 13:12 BMF (2) [id number] 06/02/22 07:34 PL Document 06/03/22 11:08 BMF [id number] 06/03/22 11:09 BMF Edit Result 06/03/22 11:08 BMF (3) [id number] 06/04/22 07:00 PL (1) Bilateral - Multi-Layered Wrap Application => Multi-Layer Comp - => Bilat ($) Right - Multi-Layered Wrap Application Multi-Layer Comp - => Right ($) => Left - Multi-Layered Wrap Application Multi-Layer Comp - => Left ($) => (2) Bilateral - Multi-Layered Wrap Application => Multi-Layer Comp - => Bilat ($) Right - Multi-Layered Wrap Application Multi-Layer Comp - => Right ($) => Left - Multi-Layered Wrap Application Multi-Layer Comp - => Left ($) => (3) Bilateral - Multi-Layered Wrap Application => Multi-Layer Comp - => Bilat ($) Right - Multi-Layered Wrap Application Multi-Layer Comp - => Right ($) => Left - Multi-Layered Wrap Application Multi-Layer Comp - => Left ($) => 05/25/22 06/01/22 06/03/22 13:33 13:12 11:08 Vital Signs Temperature (97.8 F-99.1 F) 96.8 F L 96.8 F L Temperature Source Temporal Temporal Pulse Rate (60-100) 88 95 Pulse Location Monitor Monitor Respiratory Rate (12-18) 16 16 Respiratory rate source Observation Observation Oxygen Delivery Method Room Air Room Air Blood Pressure (90/60-120/80) 146/78 H 131/98 H Blood Pressure Mean (mm Hg) 100 109 Source Monitor Monitor Position Sitting Sitting Blood Pressure Location Right Arm Left Forearm Pain Scale: 0-10 Numeric Is Patient Pain Free? Yes Yes Yes Wound Care Nurse 3 #2 R Lat LE Cluster -Ulcer Cleansing Rinsed/ Soap and Water Irrigated with Saline -Foul Odor after Cleansing No No -Primary Dressing Applied Fibracol Plus Fibracol Plus 4x4,NonAdherent 4x4,NonAdherent Contact Layer Contact Layer -Other Dressing DRSG PER [employer] SPECIALIST -Other Covering ABD -Fibracol Plus 4x4 0 0 #5 Left medial LE -Ulcer Cleansing Soap and Water Rinsed/ Irrigated with Saline -Foul Odor after Cleansing No No -Primary Dressing Applied Fibracol Plus Fibracol Plus Fibracol Plus 4x4,NonAdherent 4x4,NonAdherent 4x4,NonAdherent Contact Layer Contact Layer Contact Layer -Other Dressing ABD DRSG PER [employer] SPECIALIST abd -Fibracol Plus 4x4 1 1 1 #4 L dorsal foot -Ulcer Cleansing Rinsed/ Soap and Water Rinsed/ Irrigated with Irrigated with Saline Saline -Foul Odor after Cleansing No No No -Primary Dressing Applied Fibracol Plus Fibracol Plus Fibracol Plus 4x4,NonAdherent 4x4,NonAdherent 4x4,NonAdherent Contact Layer Contact Layer Contact Layer -Other Dressing DRSG PER [employer] SPECIALIST abd -Primary Dressing Covered/Secured with Dry Gauze -Fibracol Plus 4x4 0 0 0 #3 R dorsal foot -Ulcer Cleansing Rinsed/ Soap and Water Rinsed/ Irrigated with Irrigated with Saline Saline -Foul Odor after Cleansing No No No -Primary Dressing Applied Fibracol Plus Fibracol Plus Fibracol Plus 4x4,NonAdherent 4x4,NonAdherent 4x4,NonAdherent Contact Layer Contact Layer Contact Layer -Other Dressing DRSG PER [employer] SPECIALIST abd -Primary Dressing Covered/Secured with Dry Gauze -Fibracol Plus 4x4 0 0 0 #1 R giordano Med -Ulcer Cleansing Rinsed/ Rinsed/ Irrigated with Irrigated with Saline Saline -Foul Odor after Cleansing No No -Primary Dressing Applied Fibracol Plus Fibracol Plus 4x4,NonAdherent 4x4,NonAdherent Contact Layer Contact Layer -Other Dressing abd -Other Covering ABD -Fibracol Plus 4x4 0 0 Bilateral -Multi-Layered Wrap Application Multi-Layer Multi-Layer Multi-Layer Comp - Bilat ($ Comp - Bilat ($ Comp - Bilat ($ ) ) ) Right -Lotion applied to leg before No compression wrap -Other 3M WRAPS PER [employer] SPECIALIST Left -Other 3M WRAPS PER [employer] SPECIALIST Treatment Response Procedure Procedure Procedure Tolerated Well Tolerated Well Tolerated Well WC - Visit Discharge Discharge Condition Stable Stable Stable Ambulatory Status Ambulatory, Ambulatory, Ambulatory, Walker Walker Walker Transportation Private Auto Private Auto Private Auto Additional Wound Wound debrided: Left dorsal foot Type of Debridement: Excisional debridement Anesthesia Used: 4% Lidocaine Solution Depth: Down to and including healthy tissue and in the subcutaneous layer Percentage of wound debrided: 100 Instrument Used: 5mm curette Tissue Removed: Slough and devitalized tissue Severity: Fat Layer Exposed Bleeding Controlled with: Pressure Patient tolerated procedure: Patient tolerated procedure well Assessment/Plan Assessment/Plan (1) Ulcer of left lower extremity with fat layer exposed: CODE(S): L97.922 - Non-pressure chronic ulcer of unspecified part of left lower leg with fat layer exposed (2) Ulcer of right lower extremity with fat layer exposed: CODE(S): L97.912 - Non-pressure chronic ulcer of unspecified part of right lower leg with fat layer exposed (3) Ulcer of left foot with fat layer exposed: CODE(S): L97.522 - Non-pressure chronic ulcer of other part of left foot with fat layer exposed (4) Ulcer of right foot with fat layer exposed: CODE(S): L97.512 - Non-pressure chronic ulcer of other part of right foot with fat layer exposed (5) Morbid obesity: CODE(S): E66.01 - Morbid (severe) obesity due to excess calories (6) Atrial fibrillation: CODE(S): I48.91 - Unspecified atrial fibrillation (7) Lymphedema: CODE(S): I89.0 - Lymphedema, not elsewhere classified PLAN: Plan Significant improvement noted this week. Left lower extremity cluster with minimal area left. Debridement done as documented above, procedure was well-tolerated. Switch to Promogran to open areas with Adaptic over top and 3M wrap for edema management. Leave on for a week. Continue lymphedema pump and 50 mmHg for 30 minutes at a time for up to 1 hour a day. Continue exercise as tolerated and weight loss. Optimal protein intake which he states that he already does. Vitamin C, D and zinc. His questions were answered and he was advised to call with any further questions or concerns. Follow-up for nurse visit in 1 week and with me in 2 weeks. This note was generated with [employer] software. It may contain incorrect words, spelling, and punctuation that were not noted in checking the note before signing.
[2022-06-17 13:34] VITALS: BP 118/68; PULSE 89; RESP 24; TEMP 36.3; BMI 53.6
== END 2022-06-20 23:59 | disposition home or self-care (01) ==
LOC: WC 13:15
PROVIDERS: Visit Provider Internal Medicine
DX: E11.621 Type 2 diabetes mellitus with foot ulcer (principal); E11.622 Type 2 diabetes mellitus with other skin ulcer; L97.522 Non-pressure chronic ulcer of other part of left foot with fat layer exposed; L97.512 Non-pressure chronic ulcer of other part of right foot with fat layer exposed; L97.822 Non-pressure chronic ulcer of other part of left lower leg with fat layer exposed; L97.812 Non-pressure chronic ulcer of other part of right lower leg with fat layer exposed; I48.91 Unspecified atrial fibrillation; E66.01 Morbid (severe) obesity due to excess calories; Z68.43 Body mass index [BMI] 50.0-59.9, adult; I89.0 Lymphedema, not elsewhere classified; R60.0 Localized edema
CPT/HCPCS: 11042; 11045; 29580; 29581

== ENCOUNTER 2022-07-07 15:30 | Outpatient (RCR) | payer OTHER, SELFPAY ==
--- NOTE | 2022-05-19 13:08 | HP.OTEVAL_ITS ---
Patient's Visit Information CASSIDY BELLAMY is a 62 year old M, referred to Occupational Therapy by Dr. Glenys Choi MD, with a diagnosis of LE lymphedema. Date of Evaluation: 05/19/22 Occupational Therapist: Tiffanie Meza, OTR/Loni, CHT - Subjective This 62 year old male was seen for OT eval with dx of BLE lymphedema- pt states about a month ago he developed wounds and headed to the wound center- they have been changing wraps/bandages -. pt states he did have cellulitis x 2 - pt states due to size of legs doubled and he has concerns because he has used compression in the past-but has continued swelling- pt states he has some heart issues and the heart drTeodora that he did see feels a leg pump will assist in mtg. his swelling. pt is receptive to using the pump because he feels he is not getting any where with wraps. pt states he is also going to sleep apnea. Pt states he would like to get fluid out of his legs. pt states he was walking with a quad cane about three years ago and now walking with a rollator. pt states he does feel his legs are down in the more in the morning- he does sleep in a regular bed-. 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 pt states he does do small stretching but not exercise-. pt has used compression socks before but has not been helpful for him. pt would like to get a better program to mtg. his swelling. - Pain bilateral 4 Pain Intensity Range: 4 - Objective pt states his endoscope technician was rec'd a pump for his LE - Lymphedema (Circumferential Measure) Ankle: right 42cm left 46cm Largest calf: right 61.5cm left 67cm Lower Exremity Comments: pt demo with stage III - Lower Limb Functional Index Lower Extremity Functional Score: 13 - Goals Demonstrate a 20% reduction in edema by d/c: Yes Demonstrate adequate knowledge of self-massage by 2nd week: Yes Demonstrate adequate knowledge skin care/prec by 2nd week: Yes Demonstrate adequate knowledge therapeutic exercises by d/c: Yes Select approp compression garment w/donning/care/wear by d/c: Yes Voice need to replace compression garment every 4-6mo by dc: Yes - Rehabilitation General Assessment: pt demo with sig. issues with edema and open wounds- stage III lymphedema-with fibrosis of tissue. pt demo need for skilled therapy services 3-4 visits to ensure pt demo understanding of a home mtg. program for lymphedema- Pt would benefit from use of a home vaso pneumatic pump- will work with to get order for pt. to mtg his lymphedema appropriately. Rehabilitation Potential: Good - Anticipated Interventions Education re assistive Equipment, Education re Diagnosis, Manual Lymph Drainage, Education re Life-long lymphedema Management, Education re Self-Bandaging Techniques, Education re Skin Care and Precautions, Education re Self Massage Techniques, Education re Correct Donning Tech,Care&Wearing Sched Comp Garments, Caregiver Training, Home Program - Visit Plan TEXT: Thank you for the opportunity to evaluate your patient. For Medicare and Medicare HMO plans, please review the plan of care and approve it. It will need to be FAXED BACK to us at [phone] for Medicare purposes. Please let me know if there are questions or concerns regarding this plan of care. Physician Signature: Date:
--- NOTE | 2022-10-25 16:26 | HP.OT.NRP ---
CASSIDY BELLAMY was seen in my office for initial evaluation on 05/19/22. The following Plan of Care was established for this patient: Anticipated Interventions: Education re assistive Equipment, Education re Diagnosis, Manual Lymph Drainage, Education re Life-long lymphedema Management, Education re Self-Bandaging Techniques, Education re Skin Care and Precautions, Education re Self Massage Techniques, Education re Correct Donning Tech,Care&Wearing Sched Comp Garments, Caregiver Training, Home Program This patient was last seen in our office 07/07/22. Pertinent comments regarding their Occupational therapy will appear below: pt was seen for 2 OT session Pt states he did get a lymphedema pump- and has been using it about a 6 weeks- pt states his legs are feeling better- using 30 min 2x a day- pt will go to wound center to get last two wounds - pt state he lost 60 some pounds- and has noticed a increase ease of getting her socks on and working with his legs- pt still does not want to learn how to wrap his legs because he is worried he will have trouble- pt states he is putting lotion on his legs to assist in decreasing the itchy skin- Pt states he did get a lymphedema pump- and has been using it about a 6 weeks- pt states his legs are feeling better- using 30 min 2x a day- pt will go to wound center to get last two wounds - pt state he lost 60 some pounds- and has noticed a increase ease of getting her socks on and working with his legs- pt still does not want to learn how to wrap his legs because he is worried he will have trouble- pt states he is putting lotion on his legs to assist in decreasing the itchy skin- pt using zipper compression socks 20-30mmHg. pt has not scheduled further apts. and at this time due to time lapse in services pt d.c. At this point I will be discontinuing this patient from occupational therapy. I would be happy to see this patient again in the future if found appropriate by the physician. Thank you! Tiffanie Meza, OTR/L, CHT
== END 2022-07-07 19:00 | disposition home or self-care (01) ==
LOC: OT 15:30
PROVIDERS: Referring Provider Internal Medicine; Visit Provider Internal Medicine
DX: I89.0 Lymphedema, not elsewhere classified (principal)
CPT/HCPCS: 97166; 97530

== ENCOUNTER 2022-07-15 13:00 | Outpatient (RCR) | payer OTHER, SELFPAY ==
[2022-06-21 00:33] VITALS: BP 118/68; PULSE 89; RESP 24; TEMP 36.3; BMI 53.6
[2022-06-24 09:45] VITALS: BP 115/68; PULSE 82; RESP 18; TEMP 35.4; BMI 53.6
--- NOTE | 2022-06-24 13:22 | PCM.WC.PN ---
History of Present Illness Date of Service: 06/24/22 Chief Complaint: Bilateral lower extremity ulcers History of Wound: Mr. Mayo is a 62-year-old who presents to the wound center due to nonhealing bilateral lower extremity ulcers. He states it started about 2 months ago. Chronic bilateral lower extremity swelling with difficulty wearing shoes and moving his lower extremities. Had some blister formation which subsequently opened up on rubbing from his shoes. Leg ulcer is said to have opened up on rubbing from his compression. Primary care physician had attempted care without any significant improvement. He denies any history of diabetes mellitus stating that his last A1c was in the fives. He sits for at least 10 hours at work taking short breaks. Currently at a BMI of 53.7. He denies chills, fever or otherwise feeling of unwell. Progress of Wound: Right dorsal foot and left medial ulcers are healed. Improving left dorsal and right giordano. No new concerns at this time. Objective Data Objective Data Vital Signs: Vital Signs Temp Pulse Resp BP O2 Del Method 95.7 F L 82 18 115/68 Room Air 06/24/22 09:45 06/24/22 09:45 06/24/22 09:45 06/24/22 09:45 06/24/22 09:45 Oxygen Delivery Method Room Air Weight: 450 lb 1.282 oz Body Mass Index (BMI) 53.6 Charges/Coding Procedures Integumentary 111xxx-113xx: 84729 January subq tissue 20 sq cm/< Physical Exam Const alert, oriented x3 and no apparent distress General Appearance: cooperative, comfortable and well kempt HEENT normocephalic, head/scalp atraumatic and hearing grossly normal bilaterally Head and Scalp: normal to inspection, normocephalic and atraumatic Eyes EOMs intact bilaterally Neck full ROM General: normal visual inspection Resp normal respiratory effort Effort and Inspection: able to speak in complete sentences Extremity Extremity Narrative: Bilateral 3+ pitting edema. Skin Wounds: wounds noted Neuro oriented x3, CN's II-XII intact bilaterally and moves all extremities Psych mental status grossly normal, thought process normal, cooperative, affect normal and speech normal Debridement Note Debridement Note Wound debrided: Left dorsal foot Type of Debridement: Excisional debridement Anesthesia Used: 4% Lidocaine Solution Depth: Down to and including healthy tissue and in the subcutaneous layer Percentage of wound debrided: 100 Instrument Used: 5mm curette Tissue Removed: Slough and devitalized tissue Severity: Fat Layer Exposed Amount of bleeding with debridement: Mild Bleeding Controlled with: Pressure Patient tolerated procedure: Patient tolerated procedure well Post-Debridement Measurements and Additional Note: Post-Debridement Measurements/Treatment - Nurse 1 - General Ulcer Assessment Start: 06/24/22 09:45 Freq: Status: Active Protocol: LEONARD.LOWEXAncelmo Activity Type Activity Date Activity User E-sign Co-sign Detail Recorded Client Recorded Date Recorded By Document 06/24/22 09:45 [facility] [id number] 06/24/22 10:00 [facility] 06/24/22 09:45 WC - Today's Visit Information Type of service 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 ) Arrival Mode Ambulatory, Walker Transfer Assistance None Patient Identification Verified (Name & Yes ) Patient Requires Transmission-Based No Precautions Height and Weight Body Mass Index (BMI) 53.6 BMI Classification Obese Vital Signs Temperature (97.8 F-99.1 F) 95.7 F L Temperature Source Temporal Pulse Rate (60-100) 82 Pulse Location Monitor Respiratory Rate (12-18) 18 Respiratory rate source Observation Oxygen Delivery Method Room Air Blood Pressure (90/60-120/80) 115/68 Blood Pressure Mean (mm Hg) 83 Source Monitor Position Sitting Blood Pressure Location Right Arm History Since Last Visit- (Skip if this is Patient's initial visit) Have you changed medications since your No last visit? Any new allergies or adverse reactions No Had a fall/change in ADL's that may No increase risk of falls Signs or symptoms of abuse and/or No neglect since last visit Have you been in the hospital since your No last visit? Has dressing in place as prescribed No Has compression in place as prescribed No Has offloadiing in place as prescribed N/A Experienced any changes in pain level or No management Left Footwear Surgical Shoe with pressure relief insole Right Footwear Regular Shoe Other Footwear REMOVES DRSGS TO SHOWER BEFORE VISIT Pain Scale: 0-10 Numeric Is Patient Pain Free? Yes - Nurse 1 - General Ulcer Measurement Start: 06/24/22 09:45 Freq: Status: Active Protocol: Activity Type Activity Date Activity User E-sign Co-sign Detail Recorded Client Recorded Date Recorded By Document 06/24/22 09:45 [facility] [id number] 06/24/22 10:00 [facility] 06/24/22 09:45 Wound Center Nurse 1 #5 Left medial LE -Combined with other wound No -Current Size (cm) - Length 0 -Current Size (cm) - Width 0 -Current Size (cm) - Depth 0 -Total Square Cm 0 -Date of Last Picture (Recall this 06/24/22 field) -Photo Taken Yes -Epithelialization Large 67-100% #3 R dorsal foot -Combined with other wound No -Current Size (cm) - Length 0 -Current Size (cm) - Width 0 -Current Size (cm) - Depth 0 -Total Square Cm 0 -Date of Last Picture (Recall this 06/24/22 field) -Photo Taken Yes -Epithelialization Large 67-100% #4 L dorsal foot -Combined with other wound No -Current Size (cm) - Length 1.7 -Current Size (cm) - Width 1.4 -Current Size (cm) - Depth 0.1 -Total Square Cm 2.38 -Date of Last Picture (Recall this 06/24/22 field) -Photo Taken Yes -Epithelialization None Present -Tunneling No -Undermining/Tunneling No -Circular Undermining No -Exudate Amt Small -Exudate Type Serous -Wound Margin Distinct, Outline Attached -Granulation Amt None Present (0 %) -Slough/Fibrin Yes -Necrosis Amt Large (67-100%) -Necrotic Tissue Type Adherent Slough -Texture (Ni-wound Skin Appearance) Assessed, Scarring -Moisture (Ni-wound Skin Appearance) Assessed,Dry/ Scaly -Color (Ni-wound Skin Appearance) Assessed -Temperature (Ni-wound Skin No Abnormality Appearance) (Pt Warm) -Tenderness on Palpation (Ni-wound No Skin Appearance) -Ulcer Cleansing Rinsed/ Irrigated with Saline -Foul Odor after Cleansing No -Anesthetic Used 4% Lidocaine Solution #1 R giordano Med -Combined with other wound No -Current Size (cm) - Length 1.3 -Current Size (cm) - Width 1.1 -Current Size (cm) - Depth 0.1 -Total Square Cm 1.43 -Date of Last Picture (Recall this 06/24/22 field) -Photo Taken Yes -Epithelialization Small 1-33% -Tunneling No -Undermining/Tunneling No -Circular Undermining No -Exudate Amt Small -Exudate Type Serosanguineous -Wound Margin Flat & Intact -Granulation Amt Large (67-100%) -Granulation Quality Red -Slough/Fibrin Yes -Necrosis Amt Small (1-33%) -Necrotic Tissue Type Adherent Slough -Texture (Ni-wound Skin Appearance) Assessed, Scarring -Moisture (Ni-wound Skin Appearance) Assessed,Dry/ Scaly -Color (Ni-wound Skin Appearance) Assessed -Temperature (Ni-wound Skin No Abnormality Appearance) (Pt Warm) -Tenderness on Palpation (Ni-wound No Skin Appearance) -Ulcer Cleansing Rinsed/ Irrigated with Saline -Foul Odor after Cleansing No -Anesthetic Used 4% Lidocaine Solution Lower Limb Edema Present Yes Right Calf (cm) 55.9 Right Ankle (cm) 32 Left Calf (cm) 51 Left Ankle (cm) 30.9 WC - Nurse 2 - General Ulcer CM Notes Start: 06/24/22 09:45 Freq: Status: Active Protocol: Activity Type Activity Date Activity User E-sign Co-sign Detail Recorded Client Recorded Date Recorded By Document 06/24/22 10:25 Desktop 06/24/22 10:28 06/24/22 10:25 Wound Center Nurse 2 #5 Left medial LE -Correct Patient No -Correct Side, Site, Position No -Correct Procedure No -Procedure Performed No -Post Debridement (cm) - Length 0 -Post Debridement (cm) - Width 0 -Post Debridement (cm) - Depth 0 -Total Square (Post) (cm) 0 -Area of Debridement (cm) - Length 0 -Area of Debridement (cm) - Width 0 -Total Square (Area) (cm) 0 -Wound/Ulcer Outcome Healed- Epithelialized #3 R dorsal foot -Correct Patient No -Correct Side, Site, Position No -Correct Procedure No -Procedure Performed No -Post Debridement (cm) - Length 0 -Post Debridement (cm) - Width 0 -Post Debridement (cm) - Depth 0 -Total Square (Post) (cm) 0 -Area of Debridement (cm) - Length 0 -Area of Debridement (cm) - Width 0 -Total Square (Area) (cm) 0 -Wound/Ulcer Outcome Healed- Epithelialized #4 L dorsal foot -Time 10:25 -Correct Patient Yes -Correct Side, Site, Position Yes -Correct Procedure Yes -Procedure Performed Yes -Type of Procedure Debridement -Clinical Debridement Subcutaneous -Tissue Removed Subcutaneous -Post Debridement (cm) - Length 1.2 -Post Debridement (cm) - Width 0.9 -Post Debridement (cm) - Depth 0.1 -Total Square (Post) (cm) 1.08 -Area of Debridement (cm) - Length 1.2 -Area of Debridement (cm) - Width 0.9 -Total Square (Area) (cm) 1.08 -Tunneling No -Undermining/Tunneling No -Circular Undermining No -Wound/Ulcer Outcome Not Healed -Ulcer Cleansing Rinsed/ Irrigated with Saline -Foul Odor after Cleansing No -Bioengineered Tissue No -Bleeding Controlled with Pressure -Treatment Response Procedure Tolerated Well -Offloading No -Debridement - Subq, 1st 20sq cm Yes #1 R giordano Med -Time 10:26 -Correct Patient Yes -Correct Side, Site, Position Yes -Correct Procedure Yes -Procedure Performed Yes -Type of Procedure Debridement -Clinical Debridement Subcutaneous -Tissue Removed Subcutaneous -Post Debridement (cm) - Length 1.5 -Post Debridement (cm) - Width 1.1 -Post Debridement (cm) - Depth 0.1 -Total Square (Post) (cm) 1.65 -Area of Debridement (cm) - Length 1.5 -Area of Debridement (cm) - Width 1.1 -Total Square (Area) (cm) 1.65 -Tunneling No -Undermining/Tunneling No -Circular Undermining No -Wound/Ulcer Outcome Not Healed -Ulcer Cleansing Rinsed/ Irrigated with Saline -Foul Odor after Cleansing No -Bioengineered Tissue No -Bleeding Controlled with Pressure -Treatment Response Procedure Tolerated Well -Offloading No -Debridement - Subq, 1st 20sq cm No Pain Scale: 0-10 Numeric Is Patient Pain Free? Yes - Nurse 3 - General Ulcer D/C NN Start: 06/24/22 09:45 Freq: Status: Active Protocol: Activity Type Activity Date Activity User E-sign Co-sign Detail Recorded Client Recorded Date Recorded By Document 06/24/22 11:18 [facility] [id number] 06/24/22 11:19 [facility] 06/24/22 11:18 Wound Care Nurse 3 #4 L dorsal foot -Ulcer Cleansing Rinsed/ Irrigated with Saline -Foul Odor after Cleansing No -Primary Dressing Applied NonAdherent Contact Layer, Promogran Agueda Matter -Primary Dressing Covered/Secured with Dry Gauze, Secured with Tape -Promogran Agueda Matter 1 #1 R giordano Med -Ulcer Cleansing Rinsed/ Irrigated with Saline -Foul Odor after Cleansing No -Primary Dressing Applied NonAdherent Contact Layer -Other Dressing agueda -Primary Dressing Covered/Secured with Dry Gauze, Secured with Tape Right -Multi-Layered Wrap Application Multi-Layer Comp - Bilat ($ ) Treatment Response Procedure Tolerated Well Pain Scale: 0-10 Numeric Is Patient Pain Free? Yes WC - Visit Discharge Discharge Condition Stable Ambulatory Status Ambulatory, Walker Transportation Private Auto Additional Wound Wound debrided: Right giordano Type of Debridement: Excisional debridement Anesthesia Used: 4% Lidocaine Solution Depth: Down to and including healthy tissue Percentage of wound debrided: 100 Instrument Used: 5mm curette Tissue Removed: Slough and devitalized tissue Severity: Fat Layer Exposed Amount of bleeding with debridement: Mild Bleeding Controlled with: Pressure Patient tolerated procedure: Patient tolerated procedure well Assessment/Plan Assessment/Plan (1) Ulcer of left lower extremity with fat layer exposed: CODE(S): L97.922 - Non-pressure chronic ulcer of unspecified part of left lower leg with fat layer exposed (2) Ulcer of right lower extremity with fat layer exposed: CODE(S): L97.912 - Non-pressure chronic ulcer of unspecified part of right lower leg with fat layer exposed (3) Ulcer of left foot with fat layer exposed: CODE(S): L97.522 - Non-pressure chronic ulcer of other part of left foot with fat layer exposed (4) Ulcer of right foot with fat layer exposed: CODE(S): L97.512 - Non-pressure chronic ulcer of other part of right foot with fat layer exposed (5) Morbid obesity: CODE(S): E66.01 - Morbid (severe) obesity due to excess calories (6) Atrial fibrillation: CODE(S): I48.91 - Unspecified atrial fibrillation (7) Lymphedema: CODE(S): I89.0 - Lymphedema, not elsewhere classified PLAN: Plan Left medial cluster is healed. Right dorsal foot ulcer healed. Debridement done as documented above, procedure was well-tolerated. Continue Promogran to open areas with Adaptic over top and 3M wrap for edema management. Leave on for a week. Continue lymphedema pump and 50 mmHg for 30 minutes at a time for up to 1 hour a day. Continue exercise as tolerated and weight loss. Optimal protein intake which he states that he already does. Vitamin C, D and zinc. His questions were answered and he was advised to call with any further questions or concerns. Follow-up in 1 week. This note was generated with [employer] software. It may contain incorrect words, spelling, and punctuation that were not noted in checking the note before signing.
[2022-07-01 09:31] VITALS: BP 113/65; PULSE 86; RESP 16; TEMP 35.9; BMI 53.6
--- NOTE | 2022-07-01 12:39 | PN.PCM_ITS ---
History of Present Illness Date of Service: 07/01/22 Chief Complaint: Bilateral lower extremity ulcers History of Wound: Mr. Mayo is a 62-year-old who presents to the wound center due to nonhealing bilateral lower extremity ulcers. He states it started about 2 months ago. Chronic bilateral lower extremity swelling with difficulty wearing shoes and moving his lower extremities. Had some blister formation which subsequently opened up on rubbing from his shoes. Leg ulcer is said to have opened up on rubbing from his compression. Primary care physician had attempted care without any significant improvement. He denies any history of diabetes mellitus stating that his last A1c was in the fives. He sits for at least 10 hours at work taking short breaks. Currently at a BMI of 53.7. He denies chills, fever or otherwise feeling of unwell. Progress of Wound: Improving ulcers. No new concerns at this time. Also improving lower extremity edema Objective Data Objective Data Vital Signs: Vital Signs Temp Pulse Resp BP O2 Del Method 96.6 F L 86 16 113/65 Room Air 07/01/22 09:31 07/01/22 09:31 07/01/22 09:31 07/01/22 09:31 07/01/22 09:31 Oxygen Delivery Method Room Air Weight: 450 lb 1.282 oz Body Mass Index (BMI) 53.6 Charges/Coding Procedures Integumentary 111xxx-113xx: 39875 January subq tissue 20 sq cm/< Physical Exam Const alert, oriented x3 and no apparent distress General Appearance: cooperative, comfortable and well kempt HEENT normocephalic, head/scalp atraumatic and hearing grossly normal bilaterally Head and Scalp: normal to inspection, normocephalic and atraumatic Eyes EOMs intact bilaterally Neck full ROM General: normal visual inspection Resp normal respiratory effort Effort and Inspection: able to speak in complete sentences Skin Wounds: wounds noted Neuro oriented x3, CN's II-XII intact bilaterally and moves all extremities Psych mental status grossly normal, thought process normal, cooperative, affect normal and speech normal Debridement Note Debridement Note Wound debrided: Right giordano Type of Debridement: Excisional debridement Anesthesia Used: 4% Lidocaine Solution Depth: Down to and including healthy tissue Percentage of wound debrided: 100 Instrument Used: 5mm curette Tissue Removed: Slough and devitalized tissue Severity: Fat Layer Exposed Amount of bleeding with debridement: Mild Bleeding Controlled with: Pressure Patient tolerated procedure: Patient tolerated procedure well Post-Debridement Measurements and Additional Note: Post-Debridement Measurements/Treatment - Nurse 1 - General Ulcer Assessment Start: 06/24/22 09:45 Freq: Status: Active Protocol: KIMBERLYN Activity Type Activity Date Activity User E-sign Co-sign Detail Recorded Client Recorded Date Recorded By Document 06/24/22 09:45 [facility] [id number] 06/24/22 10:00 BM Document 07/01/22 09:31 [facility] [id number] 07/01/22 09:39 BMF 06/24/22 07/01/22 09:45 09:31 - Today's Visit Information Type of service Follow-up Visit Follow-up Visit (Physician/BANKING CONSULTANT (Physician/BANKING CONSULTANT ) ) Arrival Mode Ambulatory, Ambulatory, Walker Walker Transfer Assistance None None Patient Identification Verified (Name & Yes Yes ) Patient Requires Transmission-Based No No Precautions Height and Weight Body Mass Index (BMI) 53.6 53.6 BMI Classification Obese Obese Vital Signs Temperature (97.8 F-99.1 F) 95.7 F L 96.6 F L Temperature Source Temporal Temporal Pulse Rate (60-100) 82 86 Pulse Location Monitor Monitor Respiratory Rate (12-18) 18 16 Respiratory rate source Observation Observation Oxygen Delivery Method Room Air Room Air Blood Pressure (90/60-120/80) 115/68 113/65 Blood Pressure Mean (mm Hg) 83 81 Source Monitor Monitor Position Sitting Sitting Blood Pressure Location Right Arm Left Forearm History Since Last Visit- (Skip if this is Patient's initial visit) Have you changed medications since your No No last visit? Any new allergies or adverse reactions No No Had a fall/change in ADL's that may No No increase risk of falls Signs or symptoms of abuse and/or No No neglect since last visit Have you been in the hospital since your No No last visit? Has dressing in place as prescribed No No Has compression in place as prescribed No No Has offloadiing in place as prescribed N/A N/A Experienced any changes in pain level or No No management Left Footwear Surgical Shoe Surgical Shoe with pressure with pressure relief insole relief insole Right Footwear Regular Shoe Regular Shoe Other Footwear REMOVES DRSGS removed drsgs/ TO SHOWER compression and BEFORE VISIT showered prior to appt Pain Scale: 0-10 Numeric Is Patient Pain Free? Yes Yes WC - Nurse 1 - General Ulcer Measurement Start: 06/24/22 09:45 Freq: Status: Active Protocol: Activity Type Activity Date Activity User E-sign Co-sign Detail Recorded Client Recorded Date Recorded By Document 06/24/22 09:45 BMF [id number] 06/24/22 10:00 BMF Document 07/01/22 09:31 BM [id number] 07/01/22 09:39 BMF 06/24/22 07/01/22 09:45 09:31 Wound Center Nurse 1 #5 Left medial LE -Combined with other wound No -Current Size (cm) - Length 0 -Current Size (cm) - Width 0 -Current Size (cm) - Depth 0 -Total Square Cm 0 -Date of Last Picture (Recall this 06/24/22 field) -Photo Taken Yes -Epithelialization Large 67-100% #3 R dorsal foot -Combined with other wound No -Current Size (cm) - Length 0 -Current Size (cm) - Width 0 -Current Size (cm) - Depth 0 -Total Square Cm 0 -Date of Last Picture (Recall this 06/24/22 field) -Photo Taken Yes -Epithelialization Large 67-100% #4 L dorsal foot -Combined with other wound No No -Current Size (cm) - Length 1.7 1.2 -Current Size (cm) - Width 1.4 1 -Current Size (cm) - Depth 0.1 0.2 -Total Square Cm 2.38 1.2 -Date of Last Picture (Recall this 06/24/22 field) -Photo Taken Yes No -Epithelialization None Present Small 1-33% -Tunneling No No -Undermining/Tunneling No No -Circular Undermining No No -Exudate Amt Small Small -Exudate Type Serous Serosanguineous -Wound Margin Distinct, Distinct, Outline Outline Attached Attached -Granulation Amt None Present (0 Medium (34-66%) %) -Granulation Quality Red -Slough/Fibrin Yes Yes -Necrosis Amt Large (67-100%) Medium (34-66%) -Necrotic Tissue Type Adherent Slough Adherent Slough -Texture (Ni-wound Skin Appearance) Assessed, Assessed, Scarring Scarring -Moisture (Ni-wound Skin Appearance) Assessed,Dry/ Assessed,Dry/ Scaly Scaly -Color (Ni-wound Skin Appearance) Assessed Assessed -Temperature (Ni-wound Skin No Abnormality No Abnormality Appearance) (Pt Warm) (Pt Warm) -Tenderness on Palpation (Ni-wound No No Skin Appearance) -Ulcer Cleansing Rinsed/ Rinsed/ Irrigated with Irrigated with Saline Saline -Foul Odor after Cleansing No No -Anesthetic Used 4% Lidocaine 5% Lidocaine Solution Gel #1 R giordano Med -Combined with other wound No No -Current Size (cm) - Length 1.3 0.8 -Current Size (cm) - Width 1.1 0.6 -Current Size (cm) - Depth 0.1 0.1 -Total Square Cm 1.43 0.48 -Date of Last Picture (Recall this 06/24/22 field) -Photo Taken Yes No -Epithelialization Small 1-33% Small 1-33% -Tunneling No No -Undermining/Tunneling No No -Circular Undermining No No -Exudate Amt Small Small -Exudate Type Serosanguineous Serosanguineous -Wound Margin Flat & Intact Flat & Intact -Granulation Amt Large (67-100%) Large (67-100%) -Granulation Quality Red Red -Slough/Fibrin Yes Yes -Necrosis Amt Small (1-33%) Small (1-33%) -Necrotic Tissue Type Adherent Slough Adherent Slough -Texture (Ni-wound Skin Appearance) Assessed, Assessed, Scarring Scarring -Moisture (Ni-wound Skin Appearance) Assessed,Dry/ Assessed,Dry/ Scaly Scaly -Color (Ni-wound Skin Appearance) Assessed Assessed -Temperature (Ni-wound Skin No Abnormality No Abnormality Appearance) (Pt Warm) (Pt Warm) -Tenderness on Palpation (Ni-wound No No Skin Appearance) -Ulcer Cleansing Rinsed/ Rinsed/ Irrigated with Irrigated with Saline Saline -Foul Odor after Cleansing No No -Anesthetic Used 4% Lidocaine 5% Lidocaine Solution Gel Lower Limb Edema Present Yes Yes Right Calf (cm) 55.9 53.7 Right Ankle (cm) 32 29.4 Left Calf (cm) 51 59.6 Left Ankle (cm) 30.9 31.8 WC - Nurse 2 - General Ulcer CM Notes Start: 06/24/22 09:45 Freq: Status: Active Protocol: Activity Type Activity Date Activity User E-sign Co-sign Detail Recorded Client Recorded Date Recorded By Document 06/24/22 10:25 Desktop 06/24/22 10:28 Document 07/01/22 09:51 MW [id number] 07/01/22 09:55 MW 06/24/22 07/01/22 10:25 09:51 Wound Center Nurse 2 #5 Left medial LE -Correct Patient No -Correct Side, Site, Position No -Correct Procedure No -Procedure Performed No -Post Debridement (cm) - Length 0 -Post Debridement (cm) - Width 0 -Post Debridement (cm) - Depth 0 -Total Square (Post) (cm) 0 -Area of Debridement (cm) - Length 0 -Area of Debridement (cm) - Width 0 -Total Square (Area) (cm) 0 -Wound/Ulcer Outcome Healed- Epithelialized #3 R dorsal foot -Correct Patient No -Correct Side, Site, Position No -Correct Procedure No -Procedure Performed No -Post Debridement (cm) - Length 0 -Post Debridement (cm) - Width 0 -Post Debridement (cm) - Depth 0 -Total Square (Post) (cm) 0 -Area of Debridement (cm) - Length 0 -Area of Debridement (cm) - Width 0 -Total Square (Area) (cm) 0 -Wound/Ulcer Outcome Healed- Epithelialized #4 L dorsal foot -Time 10:25 09:51 -Correct Patient Yes Yes -Correct Side, Site, Position Yes Yes -Correct Procedure Yes Yes -Procedure Performed Yes Yes -Type of Procedure Debridement Debridement -Clinical Debridement Subcutaneous Subcutaneous -Tissue Removed Subcutaneous Subcutaneous -Post Debridement (cm) - Length 1.2 0.9 -Post Debridement (cm) - Width 0.9 1.0 -Post Debridement (cm) - Depth 0.1 0.1 -Total Square (Post) (cm) 1.08 0.90 -Area of Debridement (cm) - Length 1.2 0.9 -Area of Debridement (cm) - Width 0.9 1.0 -Total Square (Area) (cm) 1.08 0.90 -Tunneling No No -Undermining/Tunneling No No -Circular Undermining No No -Wound/Ulcer Outcome Not Healed Not Healed -Ulcer Cleansing Rinsed/ Rinsed/ Irrigated with Irrigated with Saline Saline -Foul Odor after Cleansing No No -Bioengineered Tissue No No -Bleeding Controlled with Pressure Pressure -Treatment Response Procedure Procedure Tolerated Well Tolerated Well -Offloading No No -Debridement - Subq, 1st 20sq cm Yes Yes #1 R giordano Med -Time 10:26 09:51 -Correct Patient Yes Yes -Correct Side, Site, Position Yes Yes -Correct Procedure Yes Yes -Procedure Performed Yes Yes -Type of Procedure Debridement Debridement -Clinical Debridement Subcutaneous Subcutaneous -Tissue Removed Subcutaneous Subcutaneous -Post Debridement (cm) - Length 1.5 1.1 -Post Debridement (cm) - Width 1.1 1.0 -Post Debridement (cm) - Depth 0.1 0.1 -Total Square (Post) (cm) 1.65 1.10 -Area of Debridement (cm) - Length 1.5 1.1 -Area of Debridement (cm) - Width 1.1 1.0 -Total Square (Area) (cm) 1.65 1.10 -Tunneling No No -Undermining/Tunneling No No -Circular Undermining No No -Wound/Ulcer Outcome Not Healed Not Healed -Ulcer Cleansing Rinsed/ Rinsed/ Irrigated with Irrigated with Saline Saline -Foul Odor after Cleansing No No -Bioengineered Tissue No No -Bleeding Controlled with Pressure Pressure -Treatment Response Procedure Procedure Tolerated Well Tolerated Well -Offloading No No -Debridement - Subq, 1st 20sq cm No No Pain Scale: 0-10 Numeric Is Patient Pain Free? Yes Yes - Nurse 3 - General Ulcer D/C NN Start: 06/24/22 09:45 Freq: Status: Active Protocol: Activity Type Activity Date Activity User E-sign Co-sign Detail Recorded Client Recorded Date Recorded By Document 06/24/22 11:18 DL [id number] 06/24/22 11:19 DL Document 07/01/22 09:56 MW [id number] 07/01/22 09:57 MW 06/24/22 07/01/22 11:18 09:56 Wound Care Nurse 3 #4 L dorsal foot -Ulcer Cleansing Rinsed/ Rinsed/ Irrigated with Irrigated with Saline Saline -Foul Odor after Cleansing No No -Negative Pressure Wound Therapy N/A -Primary Dressing Applied NonAdherent NonAdherent Contact Layer, Contact Layer, Promogran Promogran Agueda Matter -Primary Dressing Covered/Secured with Dry Gauze, Dry Gauze Secured with Tape -Promogran 1 -Promogran Agueda Matter 1 #1 R giordano Med -Ulcer Cleansing Rinsed/ Rinsed/ Irrigated with Irrigated with Saline Saline -Foul Odor after Cleansing No No -Negative Pressure Wound Therapy N/A -Primary Dressing Applied NonAdherent NonAdherent Contact Layer Contact Layer -Other Dressing agueda promogran -Primary Dressing Covered/Secured with Dry Gauze, Dry Gauze Secured with Tape Bilateral LE -Lotion applied to leg before Yes compression wrap -Multi-Layered Wrap Application Multi-Layer Comp - Bilat ($ ) Right -Multi-Layered Wrap Application Multi-Layer Comp - Bilat ($ ) Treatment Response Procedure Tolerated Well Pain Scale: 0-10 Numeric Is Patient Pain Free? Yes Yes Teaching: Wound Center Dressing Your Wound -Person Taught Patient,Family -Teaching Method Discussion, Demonstration -Response to teaching Verbalize understanding WC - Visit Discharge Discharge Condition Stable Stable Ambulatory Status Ambulatory, Ambulatory, Walker Walker Transportation Private Auto Private Auto Accompanied by self Medication Reconcilliation completed & No provided to patient/care provider Clinical Summary of Care Provided Yes Additional Wound Wound debrided: Left dorsal foot Type of Debridement: Excisional debridement Anesthesia Used: 4% Lidocaine Solution Depth: Down to and including healthy tissue and in the subcutaneous layer Percentage of wound debrided: 100 Instrument Used: 5mm curette Tissue Removed: Slough and devitalized tissue Severity: Fat Layer Exposed Amount of bleeding with debridement: Mild Bleeding Controlled with: Pressure Patient tolerated procedure: Patient tolerated procedure well Assessment/Plan Assessment/Plan (1) Ulcer of left lower extremity with fat layer exposed: CODE(S): L97.922 - Non-pressure chronic ulcer of unspecified part of left lower leg with fat layer exposed (2) Ulcer of right lower extremity with fat layer exposed: CODE(S): L97.912 - Non-pressure chronic ulcer of unspecified part of right lower leg with fat layer exposed (3) Ulcer of left foot with fat layer exposed: CODE(S): L97.522 - Non-pressure chronic ulcer of other part of left foot with fat layer exposed (4) Ulcer of right foot with fat layer exposed: CODE(S): L97.512 - Non-pressure chronic ulcer of other part of right foot with fat layer exposed (5) Morbid obesity: CODE(S): E66.01 - Morbid (severe) obesity due to excess calories (6) Atrial fibrillation: CODE(S): I48.91 - Unspecified atrial fibrillation (7) Lymphedema: CODE(S): I89.0 - Lymphedema, not elsewhere classified PLAN: Plan Debridement done as documented above, procedure was well-tolerated. Improving ulcers. Continue Promogran to open areas with Adaptic over top and 3M wrap for edema management. Leave on for a week. Continue lymphedema pump at 50 mmHg for 30 minutes at a time for up to 1 hour a day. Continue exercise as tolerated and weight loss. Optimal protein intake which he states that he already does. Vitamin C, D and zinc. His questions were answered and he was advised to call with any further questions or concerns. Follow-up in 1 week. This note was generated with [employer] dictation software. It may contain incorrect words, spelling, and punctuation that were not noted in checking the note before signing.
[2022-07-08 10:37] VITALS: BP 122/57; PULSE 87; RESP 22; TEMP 36.1; BMI 53.6
--- NOTE | 2022-07-08 13:17 | PCM.WC.PN ---
History of Present Illness Date of Service: 07/08/22 Chief Complaint: Bilateral lower extremity ulcers History of Wound: Mr. Mayo is a 62-year-old who presents to the wound center due to nonhealing bilateral lower extremity ulcers. He states it started about 2 months ago. Chronic bilateral lower extremity swelling with difficulty wearing shoes and moving his lower extremities. Had some blister formation which subsequently opened up on rubbing from his shoes. Leg ulcer is said to have opened up on rubbing from his compression. Primary care physician had attempted care without any significant improvement. He denies any history of diabetes mellitus stating that his last A1c was in the fives. He sits for at least 10 hours at work taking short breaks. Currently at a BMI of 53.7. He denies chills, fever or otherwise feeling of unwell. Progress of Wound: Improving ulcers. No new concerns at this time. Also improving lower extremity edema Objective Data Objective Data Vital Signs: Vital Signs Temp Pulse Resp BP O2 Del Method 96.9 F L 87 22 H 122/57 H Room Air 07/08/22 10:37 07/08/22 10:37 07/08/22 10:37 07/08/22 10:37 07/01/22 09:31 Oxygen Delivery Method Room Air Weight: 450 lb 1.282 oz Body Mass Index (BMI) 53.6 Charges/Coding Procedures Integumentary 111xxx-113xx: [id number] January subq tissue 20 sq cm/< Physical Exam Const alert, oriented x3 and no apparent distress General Appearance: cooperative, comfortable and well kempt HEENT normocephalic, head/scalp atraumatic and hearing grossly normal bilaterally Head and Scalp: normal to inspection, normocephalic and atraumatic Eyes EOMs intact bilaterally Neck full ROM General: normal visual inspection Resp normal respiratory effort Effort and Inspection: able to speak in complete sentences Skin Wounds: wounds noted Neuro oriented x3, CN's II-XII intact bilaterally and moves all extremities Psych mental status grossly normal, thought process normal, cooperative, affect normal and speech normal Debridement Note Debridement Note Wound debrided: Right lower extremity Type of Debridement: Excisional debridement Anesthesia Used: 4% Lidocaine Solution Depth: Down to and including healthy tissue and in the subcutaneous layer Percentage of wound debrided: 100 Instrument Used: 5mm curette Tissue Removed: Slough and devitalized tissue Severity: Fat Layer Exposed Amount of bleeding with debridement: Mild Bleeding Controlled with: Pressure Patient tolerated procedure: Patient tolerated procedure well Post-Debridement Measurements and Additional Note: Post-Debridement Measurements/Treatment - Nurse 1 - General Ulcer Assessment Start: 06/24/22 09:45 Freq: Status: Active Protocol: KIMBERLYN Activity Type Activity Date Activity User E-sign Co-sign Detail Recorded Client Recorded Date Recorded By Document 06/24/22 09:45 BMF [id number] 06/24/22 10:00 BMF Document 07/01/22 09:31 BMF [id number] 07/01/22 09:39 BMF Document 07/08/22 10:37 DL [id number] 07/08/22 10:45 DL 06/24/22 07/01/22 07/08/22 09:45 09:31 10:37 - Today's Visit Information Type of service Follow-up Visit Follow-up Visit Follow-up Visit (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 (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 (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 ) ) ) Arrival Mode Ambulatory, Ambulatory, Ambulatory Walker Walker Transfer Assistance None None None Patient Identification Verified (Name & Yes Yes Yes ) Patient Requires Transmission-Based No No No Precautions Height and Weight Body Mass Index (BMI) 53.6 53.6 53.6 BMI Classification Obese Obese Obese Vital Signs Temperature (97.8 F-99.1 F) 95.7 F L 96.6 F L 96.9 F L Temperature Source Temporal Temporal Temporal Pulse Rate (60-100) 82 86 87 Pulse Location Monitor Monitor Monitor Respiratory Rate (12-18) 18 16 22 H Respiratory rate source Observation Observation Observation Oxygen Delivery Method Room Air Room Air Blood Pressure (90/60-120/80) 115/68 113/65 122/57 H Blood Pressure Mean (mm Hg) 83 81 78 Source Monitor Monitor Monitor Position Sitting Sitting Blood Pressure Location Right Arm Left Forearm History Since Last Visit- (Skip if this is Patient's initial visit) Have you changed medications since your No No No last visit? Any new allergies or adverse reactions No No No Had a fall/change in ADL's that may No No No increase risk of falls Signs or symptoms of abuse and/or No No No neglect since last visit Have you been in the hospital since your No No No last visit? Has dressing in place as prescribed No No Yes Has compression in place as prescribed No No No Has offloadiing in place as prescribed N/A N/A N/A Experienced any changes in pain level or No No No management Left Footwear Surgical Shoe Surgical Shoe with pressure with pressure relief insole relief insole Right Footwear Regular Shoe Regular Shoe Other Footwear REMOVES DRSGS removed drsgs/ TO SHOWER compression and BEFORE VISIT showered prior to appt Pain Scale: 0-10 Numeric Is Patient Pain Free? Yes Yes Yes WC - Nurse 1 - General Ulcer Measurement Start: 06/24/22 09:45 Freq: Status: Active Protocol: Activity Type Activity Date Activity User E-sign Co-sign Detail Recorded Client Recorded Date Recorded By Document 06/24/22 09:45 [facility] [id number] 06/24/22 10:00 BMF Document 07/01/22 09:31 BMF [id number] 07/01/22 09:39 BMF Document 07/08/22 10:37 DL [id number] 07/08/22 10:45 DL 06/24/22 07/01/22 07/08/22 09:45 09:31 10:37 Wound Center Nurse 1 #5 Left medial LE -Combined with other wound No -Current Size (cm) - Length 0 -Current Size (cm) - Width 0 -Current Size (cm) - Depth 0 -Total Square Cm 0 -Date of Last Picture (Recall this 06/24/22 field) -Photo Taken Yes -Epithelialization Large 67-100% #3 R dorsal foot -Combined with other wound No -Current Size (cm) - Length 0 -Current Size (cm) - Width 0 -Current Size (cm) - Depth 0 -Total Square Cm 0 -Date of Last Picture (Recall this 06/24/22 field) -Photo Taken Yes -Epithelialization Large 67-100% #4 L dorsal foot -Combined with other wound No No -Current Size (cm) - Length 1.7 1.2 0.6 -Current Size (cm) - Width 1.4 1 0.7 -Current Size (cm) - Depth 0.1 0.2 0.1 -Total Square Cm 2.38 1.2 0.42 -Date of Last Picture (Recall this 06/24/22 field) -Photo Taken Yes No No -Epithelialization None Present Small 1-33% -Tunneling No No -Undermining/Tunneling No No -Circular Undermining No No -Exudate Amt Small Small Small -Exudate Type Serous Serosanguineous -Wound Margin Distinct, Distinct, Distinct, Outline Outline Outline Attached Attached Attached -Granulation Amt None Present (0 Medium (34-66%) Large (67-100%) %) -Granulation Quality Red Red -Slough/Fibrin Yes Yes -Necrosis Amt Large (67-100%) Medium (34-66%) None Present (0 %) -Necrotic Tissue Type Adherent Slough Adherent Slough -Structure Exposed N/A -Texture (Ni-wound Skin Appearance) Assessed, Assessed, Localized Edema Scarring Scarring ,Scarring -Moisture (Ni-wound Skin Appearance) Assessed,Dry/ Assessed,Dry/ Dry/Scaly Scaly Scaly -Color (Ni-wound Skin Appearance) Assessed Assessed No Abnormality -Temperature (Ni-wound Skin No Abnormality No Abnormality No Abnormality Appearance) (Pt Warm) (Pt Warm) (Pt Warm) -Tenderness on Palpation (Ni-wound No No No Skin Appearance) -Ulcer Cleansing Rinsed/ Rinsed/ Soap and Water Irrigated with Irrigated with Saline Saline -Foul Odor after Cleansing No No No -Anesthetic Used 4% Lidocaine 5% Lidocaine 5% Lidocaine Solution Gel Gel #1 R giordano Med -Combined with other wound No No -Current Size (cm) - Length 1.3 0.8 0.7 -Current Size (cm) - Width 1.1 0.6 0.7 -Current Size (cm) - Depth 0.1 0.1 0.1 -Total Square Cm 1.43 0.48 0.49 -Date of Last Picture (Recall this 06/24/22 field) -Photo Taken Yes No No -Epithelialization Small 1-33% Small 1-33% -Tunneling No No -Undermining/Tunneling No No -Circular Undermining No No -Exudate Amt Small Small Small -Exudate Type Serosanguineous Serosanguineous Serosanguineous -Wound Margin Flat & Intact Flat & Intact Distinct, Outline Attached -Granulation Amt Large (67-100%) Large (67-100%) Small (1-33%) -Granulation Quality Red Red Herrings -Slough/Fibrin Yes Yes -Necrosis Amt Small (1-33%) Small (1-33%) Small (1-33%) -Necrotic Tissue Type Adherent Slough Adherent Slough Adherent Slough -Structure Exposed N/A -Texture (Ni-wound Skin Appearance) Assessed, Assessed, Scarring Scarring Scarring -Moisture (Ni-wound Skin Appearance) Assessed,Dry/ Assessed,Dry/ Dry/Scaly Scaly Scaly -Color (Ni-wound Skin Appearance) Assessed Assessed No Abnormality -Temperature (Ni-wound Skin No Abnormality No Abnormality No Abnormality Appearance) (Pt Warm) (Pt Warm) (Pt Warm) -Tenderness on Palpation (Ni-wound No No Skin Appearance) -Ulcer Cleansing Rinsed/ Rinsed/ Soap and Water Irrigated with Irrigated with Saline Saline -Foul Odor after Cleansing No No No -Anesthetic Used 4% Lidocaine 5% Lidocaine 5% Lidocaine Solution Gel Gel Lower Limb Edema Present Yes Yes Right Calf (cm) 55.9 53.7 51 Right Ankle (cm) 32 29.4 35.5 Left Calf (cm) 51 59.6 56 Left Ankle (cm) 30.9 31.8 38 - Nurse 2 - General Ulcer CM Notes Start: 06/24/22 09:45 Freq: Status: Active Protocol: Activity Type Activity Date Activity User E-sign Co-sign Detail Recorded Client Recorded Date Recorded By Document 06/24/22 10:25 Desktop 06/24/22 10:28 Document 07/01/22 09:51 MW [id number] 07/01/22 09:55 MW Document 07/08/22 10:54 MW [id number] 07/08/22 11:01 MW 06/24/22 07/01/22 07/08/22 10:25 09:51 10:54 Wound Center Nurse 2 #5 Left medial LE -Correct Patient No -Correct Side, Site, Position No -Correct Procedure No -Procedure Performed No -Post Debridement (cm) - Length 0 -Post Debridement (cm) - Width 0 -Post Debridement (cm) - Depth 0 -Total Square (Post) (cm) 0 -Area of Debridement (cm) - Length 0 -Area of Debridement (cm) - Width 0 -Total Square (Area) (cm) 0 -Wound/Ulcer Outcome Healed- Epithelialized #3 R dorsal foot -Correct Patient No -Correct Side, Site, Position No -Correct Procedure No -Procedure Performed No -Post Debridement (cm) - Length 0 -Post Debridement (cm) - Width 0 -Post Debridement (cm) - Depth 0 -Total Square (Post) (cm) 0 -Area of Debridement (cm) - Length 0 -Area of Debridement (cm) - Width 0 -Total Square (Area) (cm) 0 -Wound/Ulcer Outcome Healed- Epithelialized #4 L dorsal foot -Time 10: 09:51 10:54 -Correct Patient Yes Yes Yes -Correct Side, Site, Position Yes Yes Yes -Correct Procedure Yes Yes Yes -Procedure Performed Yes Yes Yes -Type of Procedure Debridement Debridement Debridement -Clinical Debridement Subcutaneous Subcutaneous Subcutaneous -Tissue Removed Subcutaneous Subcutaneous Subcutaneous -Post Debridement (cm) - Length 1.2 0.9 1.3 -Post Debridement (cm) - Width 0.9 1.0 0.9 -Post Debridement (cm) - Depth 0.1 0.1 0.1 -Total Square (Post) (cm) 1.08 0.90 1.17 -Area of Debridement (cm) - Length 1.2 0.9 1.3 -Area of Debridement (cm) - Width 0.9 1.0 0.9 -Total Square (Area) (cm) 1.08 0.90 1.17 -Tunneling No No No -Undermining/Tunneling No No No -Circular Undermining No No No -Wound/Ulcer Outcome Not Healed Not Healed Not Healed -Ulcer Cleansing Rinsed/ Rinsed/ Rinsed/ Irrigated with Irrigated with Irrigated with Saline Saline Saline -Foul Odor after Cleansing No No No -Bioengineered Tissue No No No -Bleeding Controlled with Pressure Pressure Pressure -Treatment Response Procedure Procedure Procedure Tolerated Well Tolerated Well Tolerated Well -Offloading No No No -Debridement - Subq, 1st 20sq cm Yes Yes Yes #1 R giordano Med -Time 10: 09:51 10:56 -Correct Patient Yes Yes Yes -Correct Side, Site, Position Yes Yes Yes -Correct Procedure Yes Yes Yes -Procedure Performed Yes Yes Yes -Type of Procedure Debridement Debridement Debridement -Clinical Debridement Subcutaneous Subcutaneous Subcutaneous -Tissue Removed Subcutaneous Subcutaneous Subcutaneous -Post Debridement (cm) - Length 1.5 1.1 0.9 -Post Debridement (cm) - Width 1.1 1.0 0.9 -Post Debridement (cm) - Depth 0.1 0.1 0.1 -Total Square (Post) (cm) 1.65 1.10 0.81 -Area of Debridement (cm) - Length 1.5 1.1 0.9 -Area of Debridement (cm) - Width 1.1 1.0 0.9 -Total Square (Area) (cm) 1.65 1.10 0.81 -Tunneling No No No -Undermining/Tunneling No No No -Circular Undermining No No No -Wound/Ulcer Outcome Not Healed Not Healed Not Healed -Ulcer Cleansing Rinsed/ Rinsed/ Rinsed/ Irrigated with Irrigated with Irrigated with Saline Saline Saline -Foul Odor after Cleansing No No No -Bioengineered Tissue No No No -Bleeding Controlled with Pressure Pressure Pressure -Treatment Response Procedure Procedure Procedure Tolerated Well Tolerated Well Tolerated Well -Offloading No No No -Debridement - Subq, 1st 20sq cm No No No Pain Scale: 0-10 Numeric Is Patient Pain Free? Yes Yes Yes WC - Nurse 3 - General Ulcer D/C NN Start: 06/24/22 09:45 Freq: Status: Active Protocol: Activity Type Activity Date Activity User E-sign Co-sign Detail Recorded Client Recorded Date Recorded By Document 06/24/22 11:18 DL [id number] 06/24/22 11:19 DL Document 07/01/22 09:56 MW [id number] 07/01/22 09:57 MW Document 07/08/22 11:01 MW [id number] 07/08/22 11:02 MW 06/24/22 07/01/22 07/08/22 11:18 09:56 11:01 Wound Care Nurse 3 #4 L dorsal foot -Ulcer Cleansing Rinsed/ Rinsed/ Rinsed/ Irrigated with Irrigated with Irrigated with Saline Saline Saline -Foul Odor after Cleansing No No No -Negative Pressure Wound Therapy N/A N/A -Primary Dressing Applied NonAdherent NonAdherent NonAdherent Contact Layer, Contact Layer, Contact Layer, Promogran Promogran Promogran Agueda Matter -Primary Dressing Covered/Secured with Dry Gauze, Dry Gauze Dry Gauze Secured with Tape -Promogran 1 1 -Promogran Agueda Matter 1 #1 R giordano Med -Ulcer Cleansing Rinsed/ Rinsed/ Rinsed/ Irrigated with Irrigated with Irrigated with Saline Saline Saline -Foul Odor after Cleansing No No No -Negative Pressure Wound Therapy N/A N/A -Primary Dressing Applied NonAdherent NonAdherent NonAdherent Contact Layer Contact Layer Contact Layer -Other Dressing agueda promogran promogran -Primary Dressing Covered/Secured with Dry Gauze, Dry Gauze Dry Gauze Secured with Tape Bilateral LE -Lotion applied to leg before Yes Yes compression wrap -Multi-Layered Wrap Application Multi-Layer Multi-Layer Comp - Bilat ($ Comp - Bilat ($ ) ) Right -Multi-Layered Wrap Application Multi-Layer Comp - Bilat ($ ) Treatment Response Procedure Procedure Tolerated Well Tolerated Well Pain Scale: 0-10 Numeric Is Patient Pain Free? Yes Yes Yes Teaching: Wound Center Dressing Your Wound -Person Taught Patient,Family Patient -Teaching Method Discussion, Discussion Demonstration -Response to teaching Verbalize Verbalize understanding understanding WC - Visit Discharge Discharge Condition Stable Stable Stable Ambulatory Status Ambulatory, Ambulatory, Ambulatory, Walker Walker Walker Transportation Private Auto Private Auto Private Auto Accompanied by self self Medication Reconcilliation completed & No No provided to patient/care provider Clinical Summary of Care Provided Yes Yes Additional Wound Wound debrided: Left dorsal foot Type of Debridement: Excisional debridement Anesthesia Used: 4% Lidocaine Solution Depth: Down to and including healthy tissue and in the subcutaneous layer Percentage of wound debrided: 100 Instrument Used: 5mm curette Tissue Removed: Slough and devitalized tissue Severity: Fat Layer Exposed Amount of bleeding with debridement: Mild Bleeding Controlled with: Pressure Patient tolerated procedure: Patient tolerated procedure well Assessment/Plan Assessment/Plan (1) Ulcer of left lower extremity with fat layer exposed: CODE(S): L97.922 - Non-pressure chronic ulcer of unspecified part of left lower leg with fat layer exposed (2) Ulcer of right lower extremity with fat layer exposed: CODE(S): L97.912 - Non-pressure chronic ulcer of unspecified part of right lower leg with fat layer exposed (3) Ulcer of left foot with fat layer exposed: CODE(S): L97.522 - Non-pressure chronic ulcer of other part of left foot with fat layer exposed (4) Ulcer of right foot with fat layer exposed: CODE(S): L97.512 - Non-pressure chronic ulcer of other part of right foot with fat layer exposed (5) Morbid obesity: CODE(S): E66.01 - Morbid (severe) obesity due to excess calories (6) Atrial fibrillation: CODE(S): I48.91 - Unspecified atrial fibrillation (7) Lymphedema: CODE(S): I89.0 - Lymphedema, not elsewhere classified PLAN: Plan Debridement done as documented above, procedure was well-tolerated. Improving ulcers. Continue Promogran to open areas with Adaptic over top and 3M wrap for edema management. Leave on for a week. Continue lymphedema pump at 50 mmHg for 30 minutes at a time for up to 1 hour a day. Continue exercise as tolerated and weight loss. Optimal protein intake which he states that he already does. Vitamin C, D and zinc. His questions were answered and he was advised to call with any further questions or concerns. Follow-up in 1 week for nurse visit and in 2 weeks with me. This note was generated with IPexpert dictation software. It may contain incorrect words, spelling, and punctuation that were not noted in checking the note before signing.
[2022-07-15 13:35] VITALS: BP 111/79; PULSE 86; TEMP 36.4; BMI 53.6
== END 2022-07-21 23:59 | disposition home or self-care (01) ==
LOC: WC 13:00
PROVIDERS: Visit Provider Internal Medicine
DX: L97.522 Non-pressure chronic ulcer of other part of left foot with fat layer exposed (principal); L97.512 Non-pressure chronic ulcer of other part of right foot with fat layer exposed; I48.91 Unspecified atrial fibrillation; E66.01 Morbid (severe) obesity due to excess calories; Z68.43 Body mass index [BMI] 50.0-59.9, adult; R60.0 Localized edema; I89.0 Lymphedema, not elsewhere classified
CPT/HCPCS: 11042; 29580; 29581

== ENCOUNTER 2022-08-19 10:00 | Outpatient (RCR) | payer OTHER, SELFPAY ==
[2022-07-22 00:34] VITALS: BP 111/79; PULSE 86; RESP 22; TEMP 36.4; BMI 53.6
[2022-07-22 10:44] VITALS: BP 101/65; PULSE 79; RESP 18; TEMP 35.6; BMI 53.6
--- NOTE | 2022-07-22 13:58 | PCM.WC.PN ---
History of Present Illness Date of Service: 07/22/22 Chief Complaint: Bilateral lower extremity ulcers History of Wound: Mr. Mayo is a 62-year-old who presents to the wound center due to nonhealing bilateral lower extremity ulcers. He states it started about 2 months ago. Chronic bilateral lower extremity swelling with difficulty wearing shoes and moving his lower extremities. Had some blister formation which subsequently opened up on rubbing from his shoes. Leg ulcer is said to have opened up on rubbing from his compression. Primary care physician had attempted care without any significant improvement. He denies any history of diabetes mellitus stating that his last A1c was in the fives. He sits for at least 10 hours at work taking short breaks. Currently at a BMI of 53.7. He denies chills, fever or otherwise feeling of unwell. Progress of Wound: Improving. No new concerns at this time. Objective Data Objective Data Vital Signs: Vital Signs Temp Pulse Resp BP O2 Del Method 96.1 F L 79 18 101/65 Room Air 07/22/22 10:44 07/22/22 10:44 07/22/22 10:44 07/22/22 10:44 07/22/22 10:44 Oxygen Delivery Method Room Air Weight: 450 lb 1.282 oz Body Mass Index (BMI) 53.6 Charges/Coding Procedures Integumentary 111xxx-113xx: 20363 January subq tissue 20 sq cm/< Physical Exam Const alert, oriented x3 and no apparent distress General Appearance: cooperative, comfortable and well kempt HEENT normocephalic, head/scalp atraumatic and hearing grossly normal bilaterally Head and Scalp: normal to inspection, normocephalic and atraumatic Eyes EOMs intact bilaterally Neck full ROM General: normal visual inspection Resp normal respiratory effort Effort and Inspection: able to speak in complete sentences Skin Wounds: wounds noted Neuro oriented x3, CN's II-XII intact bilaterally and moves all extremities Psych mental status grossly normal, thought process normal, cooperative, affect normal and speech normal Debridement Note Debridement Note Wound debrided: Left Dorsal Foot Type of Debridement: Excisional debridement Anesthesia Used: 4% Lidocaine Solution Depth: Down to and including healthy tissue and in the subcutaneous layer Percentage of wound debrided: 100 Instrument Used: 5mm curette Tissue Removed: Slough and devitalized tissue Severity: Fat Layer Exposed Amount of bleeding with debridement: Mild Bleeding Controlled with: Pressure Patient tolerated procedure: Patient tolerated procedure well Post-Debridement Measurements and Additional Note: Post-Debridement Measurements/Treatment - Nurse 1 - General Ulcer Assessment Start: 07/22/22 10:44 Freq: Status: Active Protocol: KIMBERLYN Activity Type Activity Date Activity User E-sign Co-sign Detail Recorded Client Recorded Date Recorded By Document 07/22/22 10:44 MW [id number] 07/22/22 10:48 MW 07/22/22 10:44 WC - Today's Visit Information Type of service Follow-up Visit (Physician/MANAGER BALANCE ) Arrival Mode Ambulatory, Walker Transfer Assistance None Accompanied by self Patient Identification Verified (Name & Yes ) Patient Requires Transmission-Based No Precautions Height and Weight Body Mass Index (BMI) 53.6 BMI Classification Obese Vital Signs Temperature (97.8 F-99.1 F) 96.1 F L Temperature Source Temporal Pulse Rate (60-100) 79 Pulse Location Monitor Respiratory Rate (12-18) 18 Respiratory rate source Observation Oxygen Delivery Method Room Air Blood Pressure (90/60-120/80) 101/65 Blood Pressure Mean (mm Hg) 77 Source Monitor Position Sitting Blood Pressure Location Right Arm History Since Last Visit- (Skip if this is Patient's initial visit) Have you changed medications since your No last visit? Any new allergies or adverse reactions No Had a fall/change in ADL's that may No increase risk of falls Signs or symptoms of abuse and/or No neglect since last visit Have you been in the hospital since your No last visit? Has dressing in place as prescribed Yes Has compression in place as prescribed Yes Has offloadiing in place as prescribed N/A Experienced any changes in pain level or No management Left Footwear Surgical Shoe with pressure relief insole Right Footwear Regular Shoe Pain Scale: 0-10 Numeric Is Patient Pain Free? Yes - Nurse 1 - General Ulcer Measurement Start: 07/22/22 10:44 Freq: Status: Active Protocol: Activity Type Activity Date Activity User E-sign Co-sign Detail Recorded Client Recorded Date Recorded By Document 07/22/22 10:44 MW [id number] 07/22/22 10:48 MW 07/22/22 10:44 Wound Center Nurse 1 #4 L dorsal foot -Combined with other wound No -Current Size (cm) - Length 0.5 -Current Size (cm) - Width 0.7 -Current Size (cm) - Depth 0.1 -Total Square Cm 0.35 -Photo Taken No -Epithelialization Medium 34-66% -Tunneling No -Undermining/Tunneling No -Circular Undermining No -Exudate Amt None Present -Wound Margin Flat & Intact -Granulation Amt None Present (0 %) -Granulation Quality N/A -Slough/Fibrin Yes -Necrosis Amt Large (67-100%) -Necrotic Tissue Type Adherent Slough -Structure Exposed N/A -Texture (Ni-wound Skin Appearance) Assessed, Localized Edema ,Scarring -Moisture (Ni-wound Skin Appearance) Assessed,Dry/ Scaly -Color (Ni-wound Skin Appearance) Assessed,Rubor -Temperature (Ni-wound Skin No Abnormality Appearance) (Pt Warm) -Tenderness on Palpation (Ni-wound Yes Skin Appearance) -Ulcer Cleansing Rinsed/ Irrigated with Saline -Foul Odor after Cleansing No -Anesthetic Used 5% Lidocaine Gel #1 R giordano Med -Combined with other wound No -Current Size (cm) - Length 0.3 -Current Size (cm) - Width 0.3 -Current Size (cm) - Depth 0.1 -Total Square Cm 0.09 -Photo Taken No -Epithelialization Medium 34-66% -Tunneling No -Undermining/Tunneling No -Circular Undermining No -Exudate Amt None Present -Wound Margin Flat & Intact -Granulation Amt Medium (34-66%) -Granulation Quality [place] -Slough/Fibrin Yes -Necrosis Amt Small (1-33%) -Necrotic Tissue Type Adherent Slough -Structure Exposed N/A -Texture (Ni-wound Skin Appearance) Assessed, Localized Edema ,Scarring -Moisture (Ni-wound Skin Appearance) Assessed,Dry/ Scaly -Color (Ni-wound Skin Appearance) Assessed,Rubor -Ulcer Cleansing Rinsed/ Irrigated with Saline -Foul Odor after Cleansing No -Anesthetic Used 5% Lidocaine Gel Lower Limb Edema Present Yes Right Calf (cm) 51.0 Right Ankle (cm) 32.8 Left Ankle (cm) 55.5 Left Foot (cm) 36.0 WC - Nurse 2 - General Ulcer CM Notes Start: 07/22/22 10:44 Freq: Status: Active Protocol: Activity Type Activity Date Activity User E-sign Co-sign Detail Recorded Client Recorded Date Recorded By Document 07/22/22 10:56 MW [id number] 07/22/22 11:03 MW 07/22/22 10:56 Wound Center Nurse 2 #4 L dorsal foot -Time 10:56 -Correct Patient Yes -Correct Side, Site, Position Yes -Correct Procedure Yes -Procedure Performed Yes -Type of Procedure Debridement -Clinical Debridement Subcutaneous -Tissue Removed Subcutaneous -Post Debridement (cm) - Length 1.0 -Post Debridement (cm) - Width 0.6 -Post Debridement (cm) - Depth 0.1 -Total Square (Post) (cm) 0.60 -Area of Debridement (cm) - Length 1.0 -Area of Debridement (cm) - Width 0.6 -Total Square (Area) (cm) 0.60 -Tunneling No -Undermining/Tunneling No -Circular Undermining No -Wound/Ulcer Outcome Not Healed -Ulcer Cleansing Rinsed/ Irrigated with Saline -Foul Odor after Cleansing No -Bioengineered Tissue No -Bleeding Controlled with Pressure -Treatment Response Procedure Tolerated Well -Offloading No -Debridement - Subq, 1st 20sq cm Yes #1 R giordano Med -Time 10:57 -Correct Patient Yes -Correct Side, Site, Position Yes -Correct Procedure Yes -Procedure Performed No -Post Debridement (cm) - Length 0.1 -Post Debridement (cm) - Width 0.1 -Post Debridement (cm) - Depth 0.1 -Total Square (Post) (cm) 0.01 -Tunneling No -Undermining/Tunneling No -Circular Undermining No -Wound/Ulcer Outcome Not Healed -Treatment Response Procedure Tolerated Well Pain Scale: 0-10 Numeric Is Patient Pain Free? Yes WC - Nurse 3 - General Ulcer D/C NN Start: 07/22/22 10:44 Freq: Status: Active Protocol: Activity Type Activity Date Activity User E-sign Co-sign Detail Recorded Client Recorded Date Recorded By Document 07/22/22 11:40 KR [id number] 07/22/22 11:41 KR 07/22/22 11:40 Wound Care Nurse 3 #4 L dorsal foot -Ulcer Cleansing Rinsed/ Irrigated with Saline -Primary Dressing Applied Promogran Yuliya Matter -Primary Dressing Covered/Secured with Dry Gauze, Secured with Tape -Promogran Yuliya Matter 1 Left -Multi-Layered Wrap Application Multi-Layer Comp - Bilat ($ ) Pain Scale: 0-10 Numeric Is Patient Pain Free? Yes WC - Visit Discharge Discharge Condition Stable Ambulatory Status Ambulatory, Walker Transportation Private Auto Assessment/Plan Assessment/Plan (1) Ulcer of right lower extremity with fat layer exposed: CODE(S): L97.912 - Non-pressure chronic ulcer of unspecified part of right lower leg with fat layer exposed (2) Ulcer of left foot with fat layer exposed: CODE(S): L97.522 - Non-pressure chronic ulcer of other part of left foot with fat layer exposed (3) Morbid obesity: CODE(S): E66.01 - Morbid (severe) obesity due to excess calories (4) Atrial fibrillation: CODE(S): I48.91 - Unspecified atrial fibrillation (5) Lymphedema: CODE(S): I89.0 - Lymphedema, not elsewhere classified PLAN: Plan Debridement done as documented above, procedure was well-tolerated. Improving ulcers. Left lower extremity cluster and right foot are healed. Continue Promogran to open areas with Adaptic over top and 3M wrap for edema management. Leave on for a week. Continue lymphedema pump at 50 mmHg for 30 minutes at a time for up to 1 hour a day. Continue exercise as tolerated and weight loss. Optimal protein intake which he states that he already does. Vitamin C, D and zinc. His questions were answered and he was advised to call with any further questions or concerns. Follow-up in 2 weeks per patient preference. This note was generated with [employer] dictation software. It may contain incorrect words, spelling, and punctuation that were not noted in checking the note before signing.
[2022-07-27 14:58] VITALS: BP 133/57; PULSE 85; RESP 22; TEMP 36.4; BMI 53.6
[2022-07-29 10:43] VITALS: BP 131/62; PULSE 86; RESP 20; TEMP 36.1; BMI 53.6
--- NOTE | 2022-07-29 12:56 | PN.PCM_ITS ---
History of Present Illness Date of Service: 07/29/22 Chief Complaint: Bilateral lower extremity ulcers History of Wound: Mr. Mayo is a 62-year-old who presents to the wound center due to nonhealing bilateral lower extremity ulcers. He states it started about 2 months ago. Chronic bilateral lower extremity swelling with difficulty wearing shoes and moving his lower extremities. Had some blister formation which subsequently opened up on rubbing from his shoes. Leg ulcer is said to have opened up on rubbing from his compression. Primary care physician had attempted care without any significant improvement. He denies any history of diabetes mellitus stating that his last A1c was in the fives. He sits for at least 10 hours at work taking short breaks. Currently at a BMI of 53.7. He denies chills, fever or otherwise feeling of unwell. Progress of Wound: Improving. No new concerns at this time. Objective Data Objective Data Vital Signs: Vital Signs Temp Pulse Resp BP O2 Del Method 96.9 F L 86 20 H 131/62 H Room Air 07/29/22 10:43 07/29/22 10:43 07/29/22 10:43 07/29/22 10:43 07/22/22 10:44 Oxygen Delivery Method Room Air Weight: 450 lb 1.282 oz Body Mass Index (BMI) 53.6 Charges/Coding Procedures Integumentary 111xxx-113xx: 24914 January subq tissue 20 sq cm/< Physical Exam Const alert, oriented x3 and no apparent distress General Appearance: cooperative, comfortable and well kempt HEENT normocephalic, head/scalp atraumatic and hearing grossly normal bilaterally Head and Scalp: normal to inspection, normocephalic and atraumatic Eyes EOMs intact bilaterally Neck full ROM General: normal visual inspection Resp normal respiratory effort Effort and Inspection: able to speak in complete sentences Skin Wounds: wounds noted Neuro oriented x3, CN's II-XII intact bilaterally and moves all extremities Psych mental status grossly normal, thought process normal, cooperative, affect normal and speech normal Debridement Note Debridement Note Wound debrided: Right lower extremity Type of Debridement: Excisional debridement Anesthesia Used: 4% Lidocaine Solution Depth: Down to and including healthy tissue and in the subcutaneous layer Percentage of wound debrided: 100 Instrument Used: 3mm curette Tissue Removed: Slough and devitalized tissue Severity: Fat Layer Exposed Amount of bleeding with debridement: Mild Bleeding Controlled with: Pressure Patient tolerated procedure: Patient tolerated procedure well Post-Debridement Measurements and Additional Note: Post-Debridement Measurements/Treatment WC - Nurse 1 - General Ulcer Assessment Start: 07/22/22 10:44 Freq: Status: Active Protocol: KIMBERLYN Activity Type Activity Date Activity User E-sign Co-sign Detail Recorded Client Recorded Date Recorded By Document 07/22/22 10:44 MW [id number] 07/22/22 10:48 MW Document 07/27/22 14:58 DL [id number] 07/27/22 15:02 DL Document 07/29/22 10:43 DL [id number] 07/29/22 10:46 DL 07/22/22 07/27/22 07/29/22 10:44 14:58 10:43 - Today's Visit Information Type of service Follow-up Visit Nurse-only Follow-up Visit (Physician/ORTHOPEDIC PODIATRIST Visit (Physician/ORTHOPEDIC PODIATRIST ) ) Arrival Mode Ambulatory, Ambulatory, Ambulatory, Walker Walker Walker Transfer Assistance None None None Accompanied by self Patient Identification Verified (Name & Yes Yes Yes ) Patient Requires Transmission-Based No No No Precautions Height and Weight Body Mass Index (BMI) 53.6 53.6 53.6 BMI Classification Obese Obese Obese Vital Signs Temperature (97.8 F-99.1 F) 96.1 F L 97.6 F L 96.9 F L Temperature Source Temporal Temporal Temporal Pulse Rate (60-100) 79 85 86 Pulse Location Monitor Monitor Monitor Respiratory Rate (12-18) 18 22 H 20 H Respiratory rate source Observation Observation Observation Oxygen Delivery Method Room Air Blood Pressure (90/60-120/80) 101/65 133/57 H 131/62 H Blood Pressure Mean (mm Hg) 77 82 85 Source Monitor Monitor Monitor Position Sitting Blood Pressure Location Right Arm History Since Last Visit- (Skip if this is Patient's initial visit) Have you changed medications since your No No No last visit? Any new allergies or adverse reactions No No No Had a fall/change in ADL's that may No No No increase risk of falls Signs or symptoms of abuse and/or No No No neglect since last visit Have you been in the hospital since your No No No last visit? Has dressing in place as prescribed Yes Yes No Has compression in place as prescribed Yes Yes No Has offloadiing in place as prescribed N/A N/A N/A Experienced any changes in pain level or No No No management Left Footwear Surgical Shoe with pressure relief insole Right Footwear Regular Shoe Pain Scale: 0-10 Numeric Is Patient Pain Free? Yes Yes Yes WC - Nurse 1 - General Ulcer Measurement Start: 07/22/22 10:44 Freq: Status: Active Protocol: Activity Type Activity Date Activity User E-sign Co-sign Detail Recorded Client Recorded Date Recorded By Document 07/22/22 10:44 MW [id number] 07/22/22 10:48 MW Document 07/27/22 14:58 DL [id number] 07/27/22 15:02 DL Document 07/29/22 10:43 DL [id number] 07/29/22 10:46 DL Document 07/29/22 11:00 MW [id number] 07/29/22 11:00 MW 07/22/22 07/27/22 07/29/22 10:44 14:58 10:43 Wound Center Nurse 1 #4 L dorsal foot -Combined with other wound No -Current Size (cm) - Length 0.5 0.2 -Current Size (cm) - Width 0.7 0.2 -Current Size (cm) - Depth 0.1 0.1 -Total Square Cm 0.35 0.04 -Photo Taken No No -Epithelialization Medium 34-66% -Tunneling No -Undermining/Tunneling No -Circular Undermining No -Exudate Amt None Present None Present None Present -Wound Margin Flat & Intact Distinct, Outline Attached -Granulation Amt None Present (0 Small (1-33%) %) -Granulation Quality N/A [place] -Slough/Fibrin Yes -Necrosis Amt Large (67-100%) None Present (0 %) -Necrotic Tissue Type Adherent Slough -Structure Exposed N/A N/A -Texture (Ni-wound Skin Appearance) Assessed, No Abnormality Scarring Localized Edema ,Scarring -Moisture (Ni-wound Skin Appearance) Assessed,Dry/ No Abnormality No Abnormality Scaly -Color (Ni-wound Skin Appearance) Assessed,Rubor No Abnormality -Temperature (Ni-wound Skin No Abnormality No Abnormality No Abnormality Appearance) (Pt Warm) (Pt Warm) (Pt Warm) -Tenderness on Palpation (Ni-wound Yes No No Skin Appearance) -Ulcer Cleansing Rinsed/ Soap and Water Irrigated with Saline -Foul Odor after Cleansing No No -Anesthetic Used 5% Lidocaine 5% Lidocaine Gel Gel #1 R giordano Med -Combined with other wound No -Current Size (cm) - Length 0.3 0.2 -Current Size (cm) - Width 0.3 0.2 -Current Size (cm) - Depth 0.1 0.1 -Total Square Cm 0.09 0.04 -Photo Taken No No -Epithelialization Medium 34-66% -Tunneling No -Undermining/Tunneling No -Circular Undermining No -Exudate Amt None Present None Present None Present -Wound Margin Flat & Intact Distinct, Outline Attached -Granulation Amt Medium (34-66%) Small (1-33%) -Granulation Quality [place] -Slough/Fibrin Yes -Necrosis Amt Small (1-33%) None Present (0 %) -Necrotic Tissue Type Adherent Slough -Structure Exposed N/A N/A -Texture (Ni-wound Skin Appearance) Assessed, No Abnormality Scarring Localized Edema ,Scarring -Moisture (Ni-wound Skin Appearance) Assessed,Dry/ No Abnormality No Abnormality Scaly -Color (Ni-wound Skin Appearance) Assessed,Rubor No Abnormality, No Abnorma lity Hemosiderin Staining -Temperature (Ni-wound Skin No Abnormality No Abnormality Appearance) (Pt Warm) (Pt Warm) -Tenderness on Palpation (Ni-wound No No Skin Appearance) -Ulcer Cleansing Rinsed/ Soap and Water Rinsed/ Irrigated with Irrigated with Saline Saline -Foul Odor after Cleansing No No No -Anesthetic Used 5% Lidocaine 5% Lidocaine Gel Gel Lower Limb Edema Present Yes Right Calf (cm) 51.0 55 Right Ankle (cm) 32.8 41 Left Calf (cm) 57 Left Ankle (cm) 55.5 42.5 Left Foot (cm) 36.0 07/29/22 11:00 Wound Center Nurse 1 #4 L dorsal foot -Combined with other wound -Current Size (cm) - Length -Current Size (cm) - Width -Current Size (cm) - Depth -Total Square Cm -Photo Taken -Epithelialization -Tunneling -Undermining/Tunneling -Circular Undermining -Exudate Amt -Wound Margin -Granulation Amt -Granulation Quality -Slough/Fibrin -Necrosis Amt -Necrotic Tissue Type -Structure Exposed -Texture (Ni-wound Skin Appearance) -Moisture (Ni-wound Skin Appearance) -Color (Ni-wound Skin Appearance) -Temperature (Ni-wound Skin Appearance) -Tenderness on Palpation (Ni-wound Skin Appearance) -Ulcer Cleansing -Foul Odor after Cleansing -Anesthetic Used #1 R giordano Med -Combined with other wound -Current Size (cm) - Length -Current Size (cm) - Width -Current Size (cm) - Depth -Total Square Cm -Photo Taken -Epithelialization -Tunneling -Undermining/Tunneling -Circular Undermining -Exudate Amt -Wound Margin -Granulation Amt -Granulation Quality -Slough/Fibrin -Necrosis Amt -Necrotic Tissue Type -Structure Exposed -Texture (Ni-wound Skin Appearance) -Moisture (Ni-wound Skin Appearance) -Color (Ni-wound Skin Appearance) -Temperature (Ni-wound Skin Appearance) -Tenderness on Palpation (Ni-wound Skin Appearance) -Ulcer Cleansing -Foul Odor after Cleansing -Anesthetic Used Lower Limb Edema Present Yes Right Calf (cm) 49.5 Right Ankle (cm) 38.2 Left Calf (cm) 54.0 Left Ankle (cm) 39.0 Left Foot (cm) WC - Nurse 2 - General Ulcer CM Notes Start: 07/22/22 10:44 Freq: Status: Active Protocol: Activity Type Activity Date Activity User E-sign Co-sign Detail Recorded Client Recorded Date Recorded By Document 07/22/22 10:56 MW [id number] 07/22/22 11:03 MW Document 07/29/22 10:50 MW [id number] 07/29/22 10:54 MW 07/22/22 07/29/22 10:56 10:50 Wound Center Nurse 2 #4 L dorsal foot -Time 10:56 10:51 -Correct Patient Yes Yes -Correct Side, Site, Position Yes Yes -Correct Procedure Yes Yes -Procedure Performed Yes Yes -Type of Procedure Debridement Debridement -Clinical Debridement Subcutaneous Subcutaneous -Tissue Removed Subcutaneous Subcutaneous -Post Debridement (cm) - Length 1.0 0.7 -Post Debridement (cm) - Width 0.6 0.4 -Post Debridement (cm) - Depth 0.1 0.1 -Total Square (Post) (cm) 0.60 0.28 -Area of Debridement (cm) - Length 1.0 0.7 -Area of Debridement (cm) - Width 0.6 0.4 -Total Square (Area) (cm) 0.60 0.28 -Tunneling No No -Undermining/Tunneling No No -Circular Undermining No No -Wound/Ulcer Outcome Not Healed Not Healed -Ulcer Cleansing Rinsed/ Rinsed/ Irrigated with Irrigated with Saline Saline -Foul Odor after Cleansing No No -Bioengineered Tissue No No -Bleeding Controlled with Pressure Pressure -Treatment Response Procedure Procedure Tolerated Well Tolerated Well -Offloading No No -Debridement - Subq, 1st 20sq cm Yes Yes #1 R giordano Med -Time 10:57 10:51 -Correct Patient Yes Yes -Correct Side, Site, Position Yes Yes -Correct Procedure Yes Yes -Procedure Performed No Yes -Type of Procedure Debridement -Clinical Debridement Subcutaneous -Tissue Removed Subcutaneous -Post Debridement (cm) - Length 0.1 0.5 -Post Debridement (cm) - Width 0.1 0.4 -Post Debridement (cm) - Depth 0.1 0.1 -Total Square (Post) (cm) 0.01 0.20 -Area of Debridement (cm) - Length 0.5 -Area of Debridement (cm) - Width 0.4 -Total Square (Area) (cm) 0.20 -Tunneling No No -Undermining/Tunneling No No -Circular Undermining No No -Wound/Ulcer Outcome Not Healed Not Healed -Ulcer Cleansing Rinsed/ Irrigated with Saline -Foul Odor after Cleansing No -Bioengineered Tissue No -Bleeding Controlled with Pressure -Treatment Response Procedure Procedure Tolerated Well Tolerated Well -Offloading No -Debridement - Subq, 1st 20sq cm No Pain Scale: 0-10 Numeric Is Patient Pain Free? Yes Yes - Nurse 3 - General Ulcer D/C NN Start: 07/22/22 10:44 Freq: Status: Active Protocol: Activity Type Activity Date Activity User E-sign Co-sign Detail Recorded Client Recorded Date Recorded By Document 07/22/22 11:40 KR [id number] 07/22/22 11:41 KR Document 07/27/22 15:02 DL [id number] 07/27/22 15:05 DL Edit Result 07/27/22 15:02 DL (1) [id number] 07/27/22 15:09 DL Document 07/29/22 11:19 BMF [id number] 07/29/22 11:20 BMF (1) Notes: => dressings applied per MARA Salazar today in clinic 07/22/22 07/27/22 07/29/22 11:40 15:02 11:19 Wound Care Nurse 3 #4 L dorsal foot -Ulcer Cleansing Rinsed/ Soap and Water Rinsed/ Irrigated with Irrigated with Saline Saline -Foul Odor after Cleansing No No -Primary Dressing Applied Promogran NonAdherent NonAdherent Yuliya Matter Contact Layer, Contact Layer, Promogran Promogran -Other Dressing DRSG PER DL REGULATORY COMPLIANCE SPECIALIST -Primary Dressing Covered/Secured with Dry Gauze, Dry Gauze, Dry Gauze Secured with Secured with Tape Tape -Promogran 1 1 -Promogran Yuliya Matter 1 #1 R giordano Med -Ulcer Cleansing Soap and Water Rinsed/ Irrigated with Saline -Foul Odor after Cleansing No No -Primary Dressing Applied NonAdherent NonAdherent Contact Layer Contact Layer, Promogran -Other Dressing moistened DRSG PER DL REGULATORY COMPLIANCE SPECIALIST promogran -Primary Dressing Covered/Secured with Dry Gauze & Dry Gauze Roll Gauze, Secured with Tape -Promogran 0 BLE -Multi-Layered Wrap Application Multi-Layer Comp - Bilat ($ ) Left -Multi-Layered Wrap Application Multi-Layer Multi-Layer Comp - Bilat ($ Comp - Bilat ($ ) ) Treatment Response Procedure Procedure Tolerated Well Tolerated Well Pain Scale: 0-10 Numeric Is Patient Pain Free? Yes Yes Yes WC - Visit Discharge Discharge Condition Stable Stable Stable Ambulatory Status Ambulatory, Ambulatory, Ambulatory, Walker Walker Walker Transportation Private Auto Private Auto Private Auto Notes: dressings applied per Ramy Leija LPN today in clinic Additional Wound Wound debrided: Left dorsal foot Type of Debridement: Excisional debridement Anesthesia Used: 4% Lidocaine Solution Depth: Down to and including healthy tissue and in the subcutaneous layer Percentage of wound debrided: 100 Instrument Used: 3mm curette Tissue Removed: Slough and devitalized tissue Severity: Fat Layer Exposed Amount of bleeding with debridement: Mild Bleeding Controlled with: Pressure Patient tolerated procedure: Patient tolerated procedure well Assessment/Plan Assessment/Plan (1) Ulcer of right lower extremity with fat layer exposed: CODE(S): L97.912 - Non-pressure chronic ulcer of unspecified part of right lower leg with fat layer exposed (2) Ulcer of left foot with fat layer exposed: CODE(S): L97.522 - Non-pressure chronic ulcer of other part of left foot with fat layer exposed (3) Morbid obesity: CODE(S): E66.01 - Morbid (severe) obesity due to excess calories (4) Atrial fibrillation: CODE(S): I48.91 - Unspecified atrial fibrillation (5) Lymphedema: CODE(S): I89.0 - Lymphedema, not elsewhere classified PLAN: Plan Debridement done as documented above, procedure was well-tolerated. Improving ulcers. Continue Promogran to open areas with Adaptic over top and 3M wrap for edema management. Leave on for a week. Continue lymphedema pump at 50 mmHg for 30 minutes at a time for up to 1 hour a day. Continue exercise as tolerated and weight loss. Optimal protein intake which he states that he already does. Vitamin C, D and zinc. His questions were answered and he was advised to call with any further questions or concerns. Follow-up with me in 2 weeks per patient preference. Coming in Tuesday/Tuesday for his nurse visit for 3M change. This note was generated with [employer] dictation software. It may contain incorrect words, spelling, and punctuation that were not noted in checking the note before signing.
[2022-08-03 14:59] VITALS: BP 162/99; PULSE 86; RESP 16; TEMP 35.9; BMI 53.6
[2022-08-12 10:18] VITALS: BP 126/56; PULSE 73; RESP 16; TEMP 36.3; BMI 53.6
--- NOTE | 2022-08-12 12:34 | PCM.WC.PN ---
History of Present Illness Date of Service: 08/12/22 Chief Complaint: Bilateral lower extremity ulcers History of Wound: Mr. Mayo is a 62-year-old who presents to the wound center due to nonhealing bilateral lower extremity ulcers. He states it started about 2 months ago. Chronic bilateral lower extremity swelling with difficulty wearing shoes and moving his lower extremities. Had some blister formation which subsequently opened up on rubbing from his shoes. Leg ulcer is said to have opened up on rubbing from his compression. Primary care physician had attempted care without any significant improvement. He denies any history of diabetes mellitus stating that his last A1c was in the fives. He sits for at least 10 hours at work taking short breaks. Currently at a BMI of 53.7. He denies chills, fever or otherwise feeling of unwell. Progress of Wound: Improving. No new concerns at this time. Objective Data Objective Data Vital Signs: Vital Signs Temp Pulse Resp BP O2 Del Method 97.3 F L 73 16 126/56 H Room Air 08/12/22 10:18 08/12/22 10:18 08/12/22 10:18 08/12/22 10:18 08/12/22 10:18 Oxygen Delivery Method Room Air Weight: 450 lb 1.282 oz Body Mass Index (BMI) 53.6 Charges/Coding Procedures Integumentary 111xxx-113xx: 69476 January subq tissue 20 sq cm/< Physical Exam Const alert, oriented x3 and no apparent distress General Appearance: cooperative, comfortable and well kempt HEENT normocephalic, head/scalp atraumatic and hearing grossly normal bilaterally Head and Scalp: normal to inspection, normocephalic and atraumatic Eyes EOMs intact bilaterally Neck full ROM General: normal visual inspection Resp normal respiratory effort Effort and Inspection: able to speak in complete sentences Skin Wounds: wounds noted Neuro oriented x3, CN's II-XII intact bilaterally and moves all extremities Psych mental status grossly normal, thought process normal, cooperative, affect normal and speech normal Debridement Note Debridement Note Wound debrided: Left Dorsal Foot Type of Debridement: Excisional debridement Anesthesia Used: 4% Lidocaine Solution Depth: Down to and including healthy tissue and in the subcutaneous layer Percentage of wound debrided: 100 Instrument Used: 3mm curette Tissue Removed: Slough and devitalized tissue Severity: Fat Layer Exposed Amount of bleeding with debridement: Mild Bleeding Controlled with: Pressure Patient tolerated procedure: Patient tolerated procedure well Post-Debridement Measurements and Additional Note: Post-Debridement Measurements/Treatment - Nurse 1 - General Ulcer Assessment Start: 07/22/22 10:44 Freq: Status: Active Protocol: KIMBERLYN Activity Type Activity Date Activity User E-sign Co-sign Detail Recorded Client Recorded Date Recorded By Document 07/22/22 10:44 MW [id number] 07/22/22 10:48 MW Document 07/27/22 14:58 DL [id number] 07/27/22 15:02 DL Document 07/29/22 10:43 DL [id number] 07/29/22 10:46 DL Document 08/03/22 14:59 BMF [id number] 08/03/22 15:03 BMF Document 08/12/22 10:18 BMF [id number] 08/12/22 10:26 BMF 07/22/22 07/27/22 07/29/22 10:44 14:58 10:43 - Today's Visit Information Type of service Follow-up Visit Nurse-only Follow-up Visit (Physician/SECOND CLASS WELDER Visit (Physician/SECOND CLASS WELDER ) ) Arrival Mode Ambulatory, Ambulatory, Ambulatory, Walker Walker Walker Transfer Assistance None None None Accompanied by self Patient Identification Verified (Name & Yes Yes Yes ) Patient Requires Transmission-Based No No No Precautions Height and Weight Body Mass Index (BMI) 53.6 53.6 53.6 BMI Classification Obese Obese Obese Vital Signs Temperature (97.8 F-99.1 F) 96.1 F L 97.6 F L 96.9 F L Temperature Source Temporal Temporal Temporal Pulse Rate (60-100) 79 85 86 Pulse Location Monitor Monitor Monitor Respiratory Rate (12-18) 18 22 H 20 H Respiratory rate source Observation Observation Observation Oxygen Delivery Method Room Air Blood Pressure (90/60-120/80) 101/65 133/57 H 131/62 H Blood Pressure Mean (mm Hg) 77 82 85 Source Monitor Monitor Monitor Position Sitting Blood Pressure Location Right Arm History Since Last Visit- (Skip if this is Patient's initial visit) Have you changed medications since your No No No last visit? Any new allergies or adverse reactions No No No Had a fall/change in ADL's that may No No No increase risk of falls Signs or symptoms of abuse and/or No No No neglect since last visit Have you been in the hospital since your No No No last visit? Has dressing in place as prescribed Yes Yes No Has compression in place as prescribed Yes Yes No Has offloadiing in place as prescribed N/A N/A N/A Experienced any changes in pain level or No No No management Left Footwear Surgical Shoe with pressure relief insole Right Footwear Regular Shoe Other Footwear Pain Scale: 0-10 Numeric Is Patient Pain Free? Yes Yes Yes 08/03/22 08/12/22 14:59 10:18 WC - Today's Visit Information Type of service Nurse-only Follow-up Visit Visit (Physician/SECOND CLASS WELDER ) Arrival Mode Ambulatory, Ambulatory, Walker Walker Transfer Assistance None None Accompanied by Patient Identification Verified (Name & Yes Yes ) Patient Requires Transmission-Based No No Precautions Height and Weight Body Mass Index (BMI) 53.6 53.6 BMI Classification Obese Obese Vital Signs Temperature (97.8 F-99.1 F) 96.7 F L 97.3 F L Temperature Source Temporal Temporal Pulse Rate (60-100) 86 73 Pulse Location Monitor Monitor Respiratory Rate (12-18) 16 16 Respiratory rate source Observation Observation Oxygen Delivery Method Room Air Room Air Blood Pressure (90/60-120/80) 162/99 H 126/56 H Blood Pressure Mean (mm Hg) 120 79 Source Monitor Monitor Position Sitting Sitting Blood Pressure Location Right Forearm Left Arm History Since Last Visit- (Skip if this is Patient's initial visit) Have you changed medications since your No No last visit? Any new allergies or adverse reactions No No Had a fall/change in ADL's that may No No increase risk of falls Signs or symptoms of abuse and/or No No neglect since last visit Have you been in the hospital since your No No last visit? Has dressing in place as prescribed No No Has compression in place as prescribed No No Has offloadiing in place as prescribed N/A N/A Experienced any changes in pain level or No No management Left Footwear Regular Shoe Surgical Shoe with pressure relief insole Right Footwear Surgical Shoe Regular Shoe with pressure relief insole Other Footwear PT REMOVED 3M'S removed wraps/ AND SHOWERED drsgs to shower PRIOR TO VISIT Pain Scale: 0-10 Numeric Is Patient Pain Free? Yes Yes WC - Nurse 1 - General Ulcer Measurement Start: 07/22/22 10:44 Freq: Status: Active Protocol: Activity Type Activity Date Activity User E-sign Co-sign Detail Recorded Client Recorded Date Recorded By Document 07/22/22 10:44 MW [id number] 07/22/22 10:48 MW Document 07/27/22 14:58 DL [id number] 07/27/22 15:02 DL Document 07/29/22 10:43 DL [id number] 07/29/22 10:46 DL Document 07/29/22 11:00 MW [id number] 07/29/22 11:00 MW Document 08/03/22 14:59 BMF [id number] 08/03/22 15:03 BMF Document 08/12/22 10:18 BMF [id number] 08/12/22 10:26 BMF 07/22/22 07/27/22 07/29/22 10:44 14:58 10:43 Wound Center Nurse 1 #1 R child Med -Combined with other wound No -Current Size (cm) - Length 0.3 0.2 -Current Size (cm) - Width 0.3 0.2 -Current Size (cm) - Depth 0.1 0.1 -Total Square Cm 0.09 0.04 -Photo Taken No No -Epithelialization Medium 34-66% -Tunneling No -Undermining/Tunneling No -Circular Undermining No -Exudate Amt None Present None Present None Present -Wound Margin Flat & Intact Distinct, Outline Attached -Granulation Amt Medium (34-66%) Small (1-33%) -Granulation Quality Y[place]on -Slough/Fibrin Yes -Necrosis Amt Small (1-33%) None Present (0 %) -Necrotic Tissue Type Adherent Slough -Structure Exposed N/A N/A -Texture (Ni-wound Skin Appearance) Assessed, No Abnormality Scarring Localized Edema ,Scarring -Moisture (Ni-wound Skin Appearance) Assessed,Dry/ No Abnormality No Abnormality Scaly -Color (Ni-wound Skin Appearance) Assessed,Rubor No Abnormality, No Abnormality Hemosiderin Staining -Temperature (Ni-wound Skin No Abnormality No Abnormality Appearance) (Pt Warm) (Pt Warm) -Tenderness on Palpation (Ni-wound No No Skin Appearance) -Ulcer Cleansing Rinsed/ Soap and Water Rinsed/ Irrigated with Irrigated with Saline Saline -Foul Odor after Cleansing No No No -Anesthetic Used 5% Lidocaine 5% Lidocaine Gel Gel #4 L dorsal foot -Combined with other wound No -Current Size (cm) - Length 0.5 0.2 -Current Size (cm) - Width 0.7 0.2 -Current Size (cm) - Depth 0.1 0.1 -Total Square Cm 0.35 0.04 -Photo Taken No No -Epithelialization Medium 34-66% -Tunneling No -Undermining/Tunneling No -Circular Undermining No -Exudate Amt None Present None Present None Present -Wound Margin Flat & Intact Distinct, Outline Attached -Granulation Amt None Present (0 Small (1-33%) %) -Granulation Quality N/A Yeadon -Slough/Fibrin Yes -Necrosis Amt Large (67-100%) None Present (0 %) -Necrotic Tissue Type Adherent Slough -Structure Exposed N/A N/A -Texture (Ni-wound Skin Appearance) Assessed, No Abnormality Scarring Localized Edema ,Scarring -Moisture (Ni-wound Skin Appearance) Assessed,Dry/ No Abnormality No Abnormality Scaly -Color (Ni-wound Skin Appearance) Assessed,Rubor No Abnormality -Temperature (Ni-wound Skin No Abnormality No Abnormality No Abnormality Appearance) (Pt Warm) (Pt Warm) (Pt Warm) -Tenderness on Palpation (Ni-wound Yes No No Skin Appearance) -Ulcer Cleansing Rinsed/ Soap and Water Irrigated with Saline -Foul Odor after Cleansing No No -Anesthetic Used 5% Lidocaine 5% Lidocaine Gel Gel Lower Limb Edema Present Yes Right Calf (cm) 51.0 55 Right Ankle (cm) 32.8 41 Left Calf (cm) 57 Left Ankle (cm) 55.5 42.5 Left Foot (cm) 36.0 07/29/22 08/03/22 08/12/22 11:00 14:59 10:18 Wound Center Nurse 1 #1 R child Med -Combined with other wound -Current Size (cm) - Length 0 -Current Size (cm) - Width 0 -Current Size (cm) - Depth 0 -Total Square Cm 0 -Photo Taken Yes -Epithelialization -Tunneling -Undermining/Tunneling -Circular Undermining -Exudate Amt None Present -Wound Margin Flat & Intact -Granulation Amt Large (67-100%) -Granulation Quality Y[place]on -Slough/Fibrin -Necrosis Amt None Present (0 %) -Necrotic Tissue Type -Structure Exposed N/A -Texture (Ni-wound Skin Appearance) No Abnormality -Moisture (Ni-wound Skin Appearance) No Abnormality -Color (Ni-wound Skin Appearance) No Abnormality -Temperature (Ni-wound Skin No Abnormality Appearance) (Pt Warm) -Tenderness on Palpation (Ni-wound No Skin Appearance) -Ulcer Cleansing Not Cleansed -Foul Odor after Cleansing No -Anesthetic Used #4 L dorsal foot -Combined with other wound -Current Size (cm) - Length 1.1 -Current Size (cm) - Width 0.5 -Current Size (cm) - Depth 0.1 -Total Square Cm 0.55 -Photo Taken Yes -Epithelialization -Tunneling -Undermining/Tunneling -Circular Undermining -Exudate Amt None Present -Wound Margin Distinct, Outline Attached -Granulation Amt Small (1-33%) -Granulation Quality [place]on,Red -Slough/Fibrin -Necrosis Amt None Present (0 %) -Necrotic Tissue Type -Structure Exposed N/A -Texture (Ni-wound Skin Appearance) Scarring -Moisture (Ni-wound Skin Appearance) No Abnormality -Color (Ni-wound Skin Appearance) No Abnormality -Temperature (Ni-wound Skin No Abnormality Appearance) (Pt Warm) -Tenderness on Palpation (Ni-wound No Skin Appearance) -Ulcer Cleansing Rinsed/ Irrigated with Saline -Foul Odor after Cleansing No -Anesthetic Used 5% Lidocaine Gel Lower Limb Edema Present Yes Yes Yes Right Calf (cm) 49.5 49 50.3 Right Ankle (cm) 38.2 35 34 Left Calf (cm) 54.0 53.2 54.3 Left Ankle (cm) 39.0 38 36.6 Left Foot (cm) WC - Nurse 2 - General Ulcer CM Notes Start: 07/22/22 10:44 Freq: Status: Active Protocol: Activity Type Activity Date Activity User E-sign Co-sign Detail Recorded Client Recorded Date Recorded By Document 07/22/22 10:56 MW [id number] 07/22/22 11:03 MW Document 07/29/22 10:50 MW [id number] 07/29/22 10:54 MW Document 08/12/22 10:38 MW [id number] 08/12/22 10:42 MW 07/22/22 07/29/22 08/12/22 10:56 10:50 10:38 Wound Center Nurse 2 #1 Rachell child Med -Time 10:57 10:51 10:38 -Correct Patient Yes Yes Yes -Correct Side, Site, Position Yes Yes Yes -Correct Procedure Yes Yes Yes -Procedure Performed No Yes No -Type of Procedure Debridement -Clinical Debridement Subcutaneous -Tissue Removed Subcutaneous -Post Debridement (cm) - Length 0.1 0.5 0 -Post Debridement (cm) - Width 0.1 0.4 0 -Post Debridement (cm) - Depth 0.1 0.1 0 -Total Square (Post) (cm) 0.01 0.20 0 -Area of Debridement (cm) - Length 0.5 -Area of Debridement (cm) - Width 0.4 -Total Square (Area) (cm) 0.20 -Tunneling No No No -Undermining/Tunneling No No No -Circular Undermining No No No -Wound/Ulcer Outcome Not Healed Not Healed Healed- Epithelialized -Ulcer Cleansing Rinsed/ Irrigated with Saline -Foul Odor after Cleansing No -Bioengineered Tissue No -Bleeding Controlled with Pressure -Treatment Response Procedure Procedure Tolerated Well Tolerated Well -Offloading No -Debridement - Subq, 1st 20sq cm No #4 L dorsal foot -Time 10:56 10:51 10:38 -Correct Patient Yes Yes Yes -Correct Side, Site, Position Yes Yes Yes -Correct Procedure Yes Yes Yes -Procedure Performed Yes Yes Yes -Type of Procedure Debridement Debridement Incision & Drainage -Clinical Debridement Subcutaneous Subcutaneous Subcutaneous -Tissue Removed Subcutaneous Subcutaneous Subcutaneous -Post Debridement (cm) - Length 1.0 0.7 1.0 -Post Debridement (cm) - Width 0.6 0.4 0.5 -Post Debridement (cm) - Depth 0.1 0.1 0.1 -Total Square (Post) (cm) 0.60 0.28 0.50 -Area of Debridement (cm) - Length 1.0 0.7 1.0 -Area of Debridement (cm) - Width 0.6 0.4 0.5 -Total Square (Area) (cm) 0.60 0.28 0.50 -Tunneling No No No -Undermining/Tunneling No No No -Circular Undermining No No No -Wound/Ulcer Outcome Not Healed Not Healed Not Healed -Ulcer Cleansing Rinsed/ Rinsed/ Rinsed/ Irrigated with Irrigated with Irrigated with Saline Saline Saline -Foul Odor after Cleansing No No No -Bioengineered Tissue No No No -Bleeding Controlled with Pressure Pressure Pressure -Treatment Response Procedure Procedure Procedure Tolerated Well Tolerated Well Tolerated Well -Offloading No No No -Debridement - Subq, 1st 20sq cm Yes Yes Yes Pain Scale: 0-10 Numeric Is Patient Pain Free? Yes Yes Yes WC - Nurse 3 - General Ulcer D/C NN Start: 07/22/22 10:44 Freq: Status: Active Protocol: Activity Type Activity Date Activity User E-sign Co-sign Detail Recorded Client Recorded Date Recorded By Document 07/22/22 11:40 KR [id number] 07/22/22 11:41 KR Document 07/27/22 15:02 DL [id number] 07/27/22 15:05 DL Edit Result 07/27/22 15:02 DL (1) [id number] 07/27/22 15:09 DL Document 07/29/22 11:19 BMF [id number] 07/29/22 11:20 BMF Document 08/03/22 14:59 BMF [id number] 08/03/22 15:03 BMF Document 08/12/22 11:07 DL [id number] 08/12/22 11:08 DL (1) Notes: => dressings applied per MARA Salazar today in clinic 07/22/22 07/27/22 07/29/22 11:40 15:02 11:19 Wound Care Nurse 3 #1 R child Med -Ulcer Cleansing Soap and Water Rinsed/ Irrigated with Saline -Foul Odor after Cleansing No No -Primary Dressing Applied NonAdherent NonAdherent Contact Layer Contact Layer, Promogran -Other Dressing moistened DRSG PER [place] COMPUTER SALESPERSON RETAIL promogran -Primary Dressing Covered/Secured with Dry Gauze & Dry Gauze Roll Gauze, Secured with Tape -Other Covering -Promogran 0 #4 L dorsal foot -Ulcer Cleansing Rinsed/ Soap and Water Rinsed/ Irrigated with Irrigated with Saline Saline -Foul Odor after Cleansing No No -Primary Dressing Applied Promogran NonAdherent NonAdherent Yuliya Matter Contact Layer, Contact Layer, Promogran Promogran -Other Dressing DRSG PER DL COMPUTER SALESPERSON RETAIL -Primary Dressing Covered/Secured with Dry Gauze, Dry Gauze, Dry Gauze Secured with Secured with Tape Tape -Other Covering -Promogran 1 1 -Promogran Yuliya Matter 1 BLE -Multi-Layered Wrap Application Multi-Layer Comp - Bilat ($ ) -Other Left -Multi-Layered Wrap Application Multi-Layer Multi-Layer Comp - Bilat ($ Comp - Bilat ($ ) ) Treatment Response Procedure Procedure Tolerated Well Tolerated Well Vital Signs Temperature (97.8 F-99.1 F) Temperature Source Pulse Rate (60-100) Pulse Location Respiratory Rate (12-18) Respiratory rate source Oxygen Delivery Method Blood Pressure (90/60-120/80) Blood Pressure Mean (mm Hg) Source Position Blood Pressure Location Pain Scale: 0-10 Numeric Is Patient Pain Free? Yes Yes Yes WC - Visit Discharge Discharge Condition Stable Stable Stable Ambulatory Status Ambulatory, Ambulatory, Ambulatory, Walker Walker Walker Transportation Private Auto Private Auto Private Auto Notes: dressings applied per Ramy Leija LPN today in clinic 08/03/22 08/12/22 14:59 11:07 Wound Care Nurse 3 #1 R child Med -Ulcer Cleansing Rinsed/ Irrigated with Saline -Foul Odor after Cleansing No -Primary Dressing Applied NonAdherent Contact Layer -Other Dressing PROMOGRAN -Primary Dressing Covered/Secured with -Other Covering DRSGS PER [place] COMPUTER SALESPERSON RETAIL -Promogran #4 L dorsal foot -Ulcer Cleansing Rinsed/ Rinsed/ Irrigated with Irrigated with Saline Saline -Foul Odor after Cleansing No No -Primary Dressing Applied NonAdherent NonAdherent Contact Layer Contact Layer, Promogran -Other Dressing PROMOGRAN -Primary Dressing Covered/Secured with Dry Gauze Dry Gauze, Secured with Tape -Other Covering DRSG PER [place] COMPUTER SALESPERSON RETAIL Juxta Lite Compression -Promogran 1 -Promogran Yuliya Matter BLE -Multi-Layered Wrap Application Multi-Layer Comp - Bilat ($ ) -Other DRSGS PER [place] COMPUTER SALESPERSON RETAIL Left -Multi-Layered Wrap Application Treatment Response Procedure Procedure Tolerated Well Tolerated Well Vital Signs Temperature (97.8 F-99.1 F) 96.7 F L Temperature Source Temporal Pulse Rate (60-100) 86 Pulse Location Monitor Respiratory Rate (12-18) 16 Respiratory rate source Observation Oxygen Delivery Method Room Air Blood Pressure (90/60-120/80) 162/99 H Blood Pressure Mean (mm Hg) 120 Source Monitor Monitor Position Sitting Blood Pressure Location Right Forearm Pain Scale: 0-10 Numeric Is Patient Pain Free? Yes Yes WC - Visit Discharge Discharge Condition Stable Stable Ambulatory Status Ambulatory, Ambulatory, Walker Walker Transportation Private Auto Notes: Assessment/Plan Assessment/Plan (1) Ulcer of right lower extremity with fat layer exposed: CODE(S): L97.912 - Non-pressure chronic ulcer of unspecified part of right lower leg with fat layer exposed (2) Ulcer of left foot with fat layer exposed: CODE(S): L97.522 - Non-pressure chronic ulcer of other part of left foot with fat layer exposed (3) Morbid obesity: CODE(S): E66.01 - Morbid (severe) obesity due to excess calories (4) Atrial fibrillation: CODE(S): I48.91 - Unspecified atrial fibrillation (5) Lymphedema: CODE(S): I89.0 - Lymphedema, not elsewhere classified PLAN: Plan Debridement done as documented above, procedure was well-tolerated. Right Child ulcer is healed. Continue Promogran to open areas with Adaptic over top. Change daily.Circaids for edema management. Continue lymphedema pump at 50 mmHg for 30 minutes at a time for up to 1 hour a day. Continue exercise as tolerated and weight loss. Optimal protein intake which he states that he already does. Vitamin C, D and zinc. His questions were answered and he was advised to call with any further questions or concerns. Follow-up with me in 1 week per. This note was generated with tydyation software. It may contain incorrect words, spelling, and punctuation that were not noted in checking the note before signing.
[2022-08-19 10:01] VITALS: BP 114/70; PULSE 68; RESP 22; TEMP 36.7; BMI 53.6
--- NOTE | 2022-08-19 11:02 | PN.PCM_ITS ---
History of Present Illness Date of Service: 08/19/22 Chief Complaint: Bilateral lower extremity ulcers History of Wound: Mr. Mayo is a 62-year-old who presents to the wound center due to nonhealing bilateral lower extremity ulcers. He states it started about 2 months ago. Chronic bilateral lower extremity swelling with difficulty wearing shoes and moving his lower extremities. Had some blister formation which subsequently opened up on rubbing from his shoes. Leg ulcer is said to have opened up on rubbing from his compression. Primary care physician had attempted care without any significant improvement. He denies any history of diabetes mellitus stating that his last A1c was in the fives. He sits for at least 10 hours at work taking short breaks. Currently at a BMI of 53.7. He denies chills, fever or otherwise feeling of unwell. Progress of Wound: Significant improvement. Minimal area left. Objective Data Objective Data Vital Signs: Vital Signs Temp Pulse Resp BP O2 Del Method 98.1 F 68 22 H 114/70 Room Air 08/19/22 10:08/19/22 10:08/19/22 10:08/19/22 10:08/12/22 10:18 Oxygen Delivery Method Room Air Weight: 450 lb 1.282 oz Body Mass Index (BMI) 53.6 Charges/Coding Visit Charges Office Visits / Consults: [id number] OV L3 Est Physical Exam Const alert, oriented x3 and no apparent distress General Appearance: cooperative, comfortable and well kempt HEENT normocephalic, head/scalp atraumatic and hearing grossly normal bilaterally Head and Scalp: normal to inspection, normocephalic and atraumatic Eyes EOMs intact bilaterally Neck full ROM General: normal visual inspection Resp normal respiratory effort Effort and Inspection: able to speak in complete sentences Skin Wounds: wounds noted Neuro oriented x3, CN's II-XII intact bilaterally and moves all extremities Psych mental status grossly normal, thought process normal, cooperative, affect normal and speech normal Debridement Note Debridement Note Post-Debridement Measurements and Additional Note: Post-Debridement Measurements/Treatment LEONARD - Nurse 1 - General Ulcer Assessment Start: 07/22/22 10:44 Freq: Status: Active Protocol: KIMBERLYN Activity Type Activity Date Activity User E-sign Co-sign Detail Recorded Client Recorded Date Recorded By Document 07/22/22 10:44 MW [id number] 07/22/22 10:48 MW Document 07/27/22 14:58 DL [id number] 07/27/22 15:02 DL Document 07/29/22 10:43 DL [id number] 07/29/22 10:46 DL Document 08/03/22 14:59 BMF [id number] 08/03/22 15:03 BMF Document 08/12/22 10:18 BMF [id number] 08/12/22 10:26 BMF Document 08/19/22 10:01 DL [id number] 08/19/22 10:11 DL 07/22/22 07/27/22 07/29/22 10:44 14:58 10:43 WC - Today's Visit Information Type of service Follow-up Visit Nurse-only Follow-up Visit (Physician/BOARD LINING MACHINE OPERATOR Visit (Physician/BOARD LINING MACHINE OPERATOR ) ) Arrival Mode Ambulatory, Ambulatory, Ambulatory, Walker Walker Walker Transfer Assistance None None None Accompanied by self Patient Identification Verified (Name & Yes Yes Yes ) Patient Requires Transmission-Based No No No Precautions Height and Weight Body Mass Index (BMI) 53.6 53.6 53.6 BMI Classification Obese Obese Obese Vital Signs Temperature (97.8 F-99.1 F) 96.1 F L 97.6 F L 96.9 F L Temperature Source Temporal Temporal Temporal Pulse Rate (60-100) 79 85 86 Pulse Location Monitor Monitor Monitor Respiratory Rate (12-18) 18 22 H 20 H Respiratory rate source Observation Observation Observation Oxygen Delivery Method Room Air Blood Pressure (90/60-120/80) 101/65 133/57 H 131/62 H Blood Pressure Mean (mm Hg) 77 82 85 Source Monitor Monitor Monitor Position Sitting Blood Pressure Location Right Arm History Since Last Visit- (Skip if this is Patient's initial visit) Have you changed medications since your No No No last visit? Any new allergies or adverse reactions No No No Had a fall/change in ADL's that may No No No increase risk of falls Signs or symptoms of abuse and/or No No No neglect since last visit Have you been in the hospital since your No No No last visit? Has dressing in place as prescribed Yes Yes No Has compression in place as prescribed Yes Yes No Has offloadiing in place as prescribed N/A N/A N/A Experienced any changes in pain level or No No No management Left Footwear Surgical Shoe with pressure relief insole Right Footwear Regular Shoe Other Footwear Pain Scale: 0-10 Numeric Is Patient Pain Free? Yes Yes Yes 08/03/22 08/12/22 08/19/22 14:59 10:18 10:01 - Today's Visit Information Type of service Nurse-only Follow-up Visit Follow-up Visit Visit (Physician/BOARD LINING MACHINE OPERATOR (Physician/BOARD LINING MACHINE OPERATOR ) ) Arrival Mode Ambulatory, Ambulatory, Ambulatory, Walker Walker Walker Transfer Assistance None None None Accompanied by Patient Identification Verified (Name & Yes Yes Yes ) Patient Requires Transmission-Based No No No Precautions Height and Weight Body Mass Index (BMI) 53.6 53.6 53.6 BMI Classification Obese Obese Obese Vital Signs Temperature (97.8 F-99.1 F) 96.7 F L 97.3 F L 98.1 F Temperature Source Temporal Temporal Temporal Pulse Rate (60-100) 86 73 68 Pulse Location Monitor Monitor Monitor Respiratory Rate (12-18) 16 16 22 H Respiratory rate source Observation Observation Observation Oxygen Delivery Method Room Air Room Air Blood Pressure (90/60-120/80) 162/99 H 126/56 H 114/70 Blood Pressure Mean (mm Hg) 120 79 84 Source Monitor Monitor Monitor Position Sitting Sitting Blood Pressure Location Right Forearm Left Arm History Since Last Visit- (Skip if this is Patient's initial visit) Have you changed medications since your No No No last visit? Any new allergies or adverse reactions No No No Had a fall/change in ADL's that may No No No increase risk of falls Signs or symptoms of abuse and/or No No No neglect since last visit Have you been in the hospital since your No No No last visit? Has dressing in place as prescribed No No Yes Has compression in place as prescribed No No Yes Has offloadiing in place as prescribed N/A N/A Experienced any changes in pain level or No No No management Left Footwear Regular Shoe Surgical Shoe with pressure relief insole Right Footwear Surgical Shoe Regular Shoe with pressure relief insole Other Footwear PT REMOVED 3M'S removed wraps/ AND SHOWERED drsgs to shower PRIOR TO VISIT Pain Scale: 0-10 Numeric Is Patient Pain Free? Yes Yes Yes - Nurse 1 - General Ulcer Measurement Start: 07/22/22 10:44 Freq: Status: Active Protocol: Activity Type Activity Date Activity User E-sign Co-sign Detail Recorded Client Recorded Date Recorded By Document 07/22/22 10:44 MW [id number] 07/22/22 10:48 MW Document 07/27/22 14:58 DL [id number] 07/27/22 15:02 DL Document 07/29/22 10:43 DL [id number] 07/29/22 10:46 DL Document 07/29/22 11:00 MW [id number] 07/29/22 11:00 MW Document 08/03/22 14:59 BMF [id number] 08/03/22 15:03 BM Document 08/12/22 10:18 BMF [id number] 08/12/22 10:26 BM Document 08/19/22 10:01 DL [id number] 08/19/22 10:11 DL 07/22/22 07/27/22 07/29/22 10:44 14:58 10:43 Wound Center Nurse 1 #1 R giordano Med -Combined with other wound No -Current Size (cm) - Length 0.3 0.2 -Current Size (cm) - Width 0.3 0.2 -Current Size (cm) - Depth 0.1 0.1 -Total Square Cm 0.09 0.04 -Photo Taken No No -Epithelialization Medium 34-66% -Tunneling No -Undermining/Tunneling No -Circular Undermining No -Exudate Amt None Present None Present None Present -Wound Margin Flat & Intact Distinct, Outline Attached -Granulation Amt Medium (34-66%) Small (1-33%) -Granulation Quality Slana Slana -Slough/Fibrin Yes -Necrosis Amt Small (1-33%) None Present (0 %) -Necrotic Tissue Type Adherent Slough -Structure Exposed N/A N/A -Texture (Ni-wound Skin Appearance) Assessed, No Abnormality Scarring Localized Edema ,Scarring -Moisture (Ni-wound Skin Appearance) Assessed,Dry/ No Abnormality No Abnormality Scaly -Color (Ni-wound Skin Appearance) Assessed,Rubor No Abnormality, No Abnormality Hemosiderin Staining -Temperature (Ni-wound Skin No Abnormality No Abnormality Appearance) (Pt Warm) (Pt Warm) -Tenderness on Palpation (Ni-wound No No Skin Appearance) -Ulcer Cleansing Rinsed/ Soap and Water Rinsed/ Irrigated with Irrigated with Saline Saline -Foul Odor after Cleansing No No No -Anesthetic Used 5% Lidocaine 5% Lidocaine Gel Gel #4 L dorsal foot -Combined with other wound No -Current Size (cm) - Length 0.5 0.2 -Current Size (cm) - Width 0.7 0.2 -Current Size (cm) - Depth 0.1 0.1 -Total Square Cm 0.35 0.04 -Photo Taken No No -Epithelialization Medium 34-66% -Tunneling No -Undermining/Tunneling No -Circular Undermining No -Exudate Amt None Present None Present None Present -Wound Margin Flat & Intact Distinct, Outline Attached -Granulation Amt None Present (0 Small (1-33%) %) -Granulation Quality N/A Slana -Slough/Fibrin Yes -Necrosis Amt Large (67-100%) None Present (0 %) -Necrotic Tissue Type Adherent Slough -Structure Exposed N/A N/A -Texture (Ni-wound Skin Appearance) Assessed, No Abnormality Scarring Localized Edema ,Scarring -Moisture (Ni-wound Skin Appearance) Assessed,Dry/ No Abnormality No Abnormality Scaly -Color (Ni-wound Skin Appearance) Assessed,Rubor No Abnormality -Temperature (Ni-wound Skin No Abnormality No Abnormality No Abnormality Appearance) (Pt Warm) (Pt Warm) (Pt Warm) -Tenderness on Palpation (Ni-wound Yes No No Skin Appearance) -Ulcer Cleansing Rinsed/ Soap and Water Irrigated with Saline -Foul Odor after Cleansing No No -Anesthetic Used 5% Lidocaine 5% Lidocaine Gel Gel Lower Limb Edema Present Yes Right Calf (cm) 51.0 55 Right Ankle (cm) 32.8 41 Left Calf (cm) 57 Left Ankle (cm) 55.5 42.5 Left Foot (cm) 36.0 07/29/22 08/03/22 08/12/22 11:00 14:59 10:18 Wound Center Nurse 1 #1 R giordano Med -Combined with other wound -Current Size (cm) - Length 0 -Current Size (cm) - Width 0 -Current Size (cm) - Depth 0 -Total Square Cm 0 -Photo Taken Yes -Epithelialization -Tunneling -Undermining/Tunneling -Circular Undermining -Exudate Amt None Present -Wound Margin Flat & Intact -Granulation Amt Large (67-100%) -Granulation Quality Slana -Slough/Fibrin -Necrosis Amt None Present (0 %) -Necrotic Tissue Type -Structure Exposed N/A -Texture (Ni-wound Skin Appearance) No Abnormality -Moisture (Ni-wound Skin Appearance) No Abnormality -Color (Ni-wound Skin Appearance) No Abnormality -Temperature (Ni-wound Skin No Abnormality Appearance) (Pt Warm) -Tenderness on Palpation (Ni-wound No Skin Appearance) -Ulcer Cleansing Not Cleansed -Foul Odor after Cleansing No -Anesthetic Used #4 L dorsal foot -Combined with other wound -Current Size (cm) - Length 1.1 -Current Size (cm) - Width 0.5 -Current Size (cm) - Depth 0.1 -Total Square Cm 0.55 -Photo Taken Yes -Epithelialization -Tunneling -Undermining/Tunneling -Circular Undermining -Exudate Amt None Present -Wound Margin Distinct, Outline Attached -Granulation Amt Small (1-33%) -Granulation Quality Slana,Red -Slough/Fibrin -Necrosis Amt None Present (0 %) -Necrotic Tissue Type -Structure Exposed N/A -Texture (Ni-wound Skin Appearance) Scarring -Moisture (Ni-wound Skin Appearance) No Abnormality -Color (Ni-wound Skin Appearance) No Abnormality -Temperature (Ni-wound Skin No Abnormality Appearance) (Pt Warm) -Tenderness on Palpation (Ni-wound No Skin Appearance) -Ulcer Cleansing Rinsed/ Irrigated with Saline -Foul Odor after Cleansing No -Anesthetic Used 5% Lidocaine Gel Lower Limb Edema Present Yes Yes Yes Right Calf (cm) 49.5 49 50.3 Right Ankle (cm) 38.2 35 34 Left Calf (cm) 54.0 53.2 54.3 Left Ankle (cm) 39.0 38 36.6 Left Foot (cm) 08/19/22 10:01 Wound Center Nurse 1 #1 R giordano Med -Combined with other wound -Current Size (cm) - Length -Current Size (cm) - Width -Current Size (cm) - Depth -Total Square Cm -Photo Taken -Epithelialization -Tunneling -Undermining/Tunneling -Circular Undermining -Exudate Amt -Wound Margin -Granulation Amt -Granulation Quality -Slough/Fibrin -Necrosis Amt -Necrotic Tissue Type -Structure Exposed -Texture (Ni-wound Skin Appearance) -Moisture (Ni-wound Skin Appearance) -Color (Ni-wound Skin Appearance) -Temperature (Ni-wound Skin Appearance) -Tenderness on Palpation (Ni-wound Skin Appearance) -Ulcer Cleansing -Foul Odor after Cleansing -Anesthetic Used #4 L dorsal foot -Combined with other wound -Current Size (cm) - Length 0.1 -Current Size (cm) - Width 0.1 -Current Size (cm) - Depth 0.1 -Total Square Cm 0.01 -Photo Taken Yes -Epithelialization -Tunneling -Undermining/Tunneling -Circular Undermining -Exudate Amt None Present -Wound Margin Flat & Intact -Granulation Amt Small (1-33%) -Granulation Quality Slana -Slough/Fibrin -Necrosis Amt None Present (0 %) -Necrotic Tissue Type -Structure Exposed N/A -Texture (Ni-wound Skin Appearance) Scarring -Moisture (Ni-wound Skin Appearance) Maceration -Color (Ni-wound Skin Appearance) No Abnormality -Temperature (Ni-wound Skin No Abnormality Appearance) (Pt Warm) -Tenderness on Palpation (Ni-wound Skin Appearance) -Ulcer Cleansing Rinsed/ Irrigated with Saline -Foul Odor after Cleansing No -Anesthetic Used 5% Lidocaine Gel Lower Limb Edema Present Right Calf (cm) 46.5 Right Ankle (cm) 33.7 Left Calf (cm) 50.5 Left Ankle (cm) 36 Left Foot (cm) WC - Nurse 2 - General Ulcer CM Notes Start: 07/22/22 10:44 Freq: Status: Active Protocol: Activity Type Activity Date Activity User E-sign Co-sign Detail Recorded Client Recorded Date Recorded By Document 07/22/22 10:56 MW [id number] 07/22/22 11:03 MW Document 07/29/22 10:50 MW [id number] 07/29/22 10:54 MW Document 08/12/22 10:38 MW [id number] 08/12/22 10:42 MW Document 08/19/22 10:41 MW [id number] 08/19/22 10:47 MW 07/22/22 07/29/22 08/12/22 10:56 10:50 10:38 Wound Center Nurse 2 #1 Rachell giordano Med -Time 10:57 10:51 10:38 -Correct Patient Yes Yes Yes -Correct Side, Site, Position Yes Yes Yes -Correct Procedure Yes Yes Yes -Procedure Performed No Yes No -Type of Procedure Debridement -Clinical Debridement Subcutaneous -Tissue Removed Subcutaneous -Post Debridement (cm) - Length 0.1 0.5 0 -Post Debridement (cm) - Width 0.1 0.4 0 -Post Debridement (cm) - Depth 0.1 0.1 0 -Total Square (Post) (cm) 0.01 0.20 0 -Area of Debridement (cm) - Length 0.5 -Area of Debridement (cm) - Width 0.4 -Total Square (Area) (cm) 0.20 -Tunneling No No No -Undermining/Tunneling No No No -Circular Undermining No No No -Wound/Ulcer Outcome Not Healed Not Healed Healed- Epithelialized -Ulcer Cleansing Rinsed/ Irrigated with Saline -Foul Odor after Cleansing No -Bioengineered Tissue No -Bleeding Controlled with Pressure -Treatment Response Procedure Procedure Tolerated Well Tolerated Well -Offloading No -Debridement - Subq, 1st 20sq cm No #4 L dorsal foot -Time 10:56 10:51 10:38 -Correct Patient Yes Yes Yes -Correct Side, Site, Position Yes Yes Yes -Correct Procedure Yes Yes Yes -Procedure Performed Yes Yes Yes -Type of Procedure Debridement Debridement Incision & Drainage -Clinical Debridement Subcutaneous Subcutaneous Subcutaneous -Tissue Removed Subcutaneous Subcutaneous Subcutaneous -Post Debridement (cm) - Length 1.0 0.7 1.0 -Post Debridement (cm) - Width 0.6 0.4 0.5 -Post Debridement (cm) - Depth 0.1 0.1 0.1 -Total Square (Post) (cm) 0.60 0.28 0.50 -Area of Debridement (cm) - Length 1.0 0.7 1.0 -Area of Debridement (cm) - Width 0.6 0.4 0.5 -Total Square (Area) (cm) 0.60 0.28 0.50 -Tunneling No No No -Undermining/Tunneling No No No -Circular Undermining No No No -Wound/Ulcer Outcome Not Healed Not Healed Not Healed -Ulcer Cleansing Rinsed/ Rinsed/ Rinsed/ Irrigated with Irrigated with Irrigated with Saline Saline Saline -Foul Odor after Cleansing No No No -Bioengineered Tissue No No No -Bleeding Controlled with Pressure Pressure Pressure -Treatment Response Procedure Procedure Procedure Tolerated Well Tolerated Well Tolerated Well -Offloading No No No -Debridement - Subq, 1st 20sq cm Yes Yes Yes Pain Scale: 0-10 Numeric Is Patient Pain Free? Yes Yes Yes 08/19/22 10:41 Wound Center Nurse 2 #1 R giordano Med -Time -Correct Patient -Correct Side, Site, Position -Correct Procedure -Procedure Performed -Type of Procedure -Clinical Debridement -Tissue Removed -Post Debridement (cm) - Length -Post Debridement (cm) - Width -Post Debridement (cm) - Depth -Total Square (Post) (cm) -Area of Debridement (cm) - Length -Area of Debridement (cm) - Width -Total Square (Area) (cm) -Tunneling -Undermining/Tunneling -Circular Undermining -Wound/Ulcer Outcome -Ulcer Cleansing -Foul Odor after Cleansing -Bioengineered Tissue -Bleeding Controlled with -Treatment Response -Offloading -Debridement - Subq, 1st 20sq cm #4 L dorsal foot -Time 10:43 -Correct Patient Yes -Correct Side, Site, Position Yes -Correct Procedure Yes -Procedure Performed No -Type of Procedure -Clinical Debridement -Tissue Removed -Post Debridement (cm) - Length 0 -Post Debridement (cm) - Width 0 -Post Debridement (cm) - Depth 0 -Total Square (Post) (cm) 0 -Area of Debridement (cm) - Length -Area of Debridement (cm) - Width -Total Square (Area) (cm) -Tunneling No -Undermining/Tunneling No -Circular Undermining No -Wound/Ulcer Outcome Healed- Epithelialized -Ulcer Cleansing -Foul Odor after Cleansing -Bioengineered Tissue -Bleeding Controlled with -Treatment Response -Offloading -Debridement - Subq, 1st 20sq cm Pain Scale: 0-10 Numeric Is Patient Pain Free? Yes - Nurse 3 - General Ulcer D/C NN Start: 07/22/22 10:44 Freq: Status: Active Protocol: Activity Type Activity Date Activity User E-sign Co-sign Detail Recorded Client Recorded Date Recorded By Document 07/22/22 11:40 KR [id number] 07/22/22 11:41 KR Document 07/27/22 15:02 DL [id number] 07/27/22 15:05 DL Edit Result 07/27/22 15:02 DL (1) [id number] 07/27/22 15:09 DL Document 07/29/22 11:19 BMF [id number] 07/29/22 11:20 BMF Document 08/03/22 14:59 BMF [id number] 08/03/22 15:03 BMF Document 08/12/22 11:07 DL [id number] 08/12/22 11:08 DL (1) Notes: => dressings applied per MARA Salazar today in clinic 07/22/22 07/27/22 07/29/22 11:40 15:02 11:19 Wound Care Nurse 3 #1 R giordano Med -Ulcer Cleansing Soap and Water Rinsed/ Irrigated with Saline -Foul Odor after Cleansing No No -Primary Dressing Applied NonAdherent NonAdherent Contact Layer Contact Layer, Promogran -Other Dressing moistened DRSG PER [place] [employer]SEMBLY DEPARTMENT SUPERVISOR promogran -Primary Dressing Covered/Secured with Dry Gauze & Dry Gauze Roll Gauze, Secured with Tape -Other Covering -Promogran 0 #4 L dorsal foot -Ulcer Cleansing Rinsed/ Soap and Water Rinsed/ Irrigated with Irrigated with Saline Saline -Foul Odor after Cleansing No No -Primary Dressing Applied Promogran NonAdherent NonAdherent Yuliya Matter Contact Layer, Contact Layer, Promogran Promogran -Other Dressing DRSG PER [place] ASSEMBLY DEPARTMENT SUPERVISOR -Primary Dressing Covered/Secured with Dry Gauze, Dry Gauze, Dry Gauze Secured with Secured with Tape Tape -Other Covering -Promogran 1 1 -Promogran Yuliya Matter 1 BLE -Multi-Layered Wrap Application Multi-Layer Comp - Bilat ($ ) -Other Left -Multi-Layered Wrap Application Multi-Layer Multi-Layer Comp - Bilat ($ Comp - Bilat ($ ) ) Treatment Response Procedure Procedure Tolerated Well Tolerated Well Vital Signs Temperature (97.8 F-99.1 F) Temperature Source Pulse Rate (60-100) Pulse Location Respiratory Rate (12-18) Respiratory rate source Oxygen Delivery Method Blood Pressure (90/60-120/80) Blood Pressure Mean (mm Hg) Source Position Blood Pressure Location Pain Scale: 0-10 Numeric Is Patient Pain Free? Yes Yes Yes WC - Visit Discharge Discharge Condition Stable Stable Stable Ambulatory Status Ambulatory, Ambulatory, Ambulatory, Walker Walker Walker Transportation Private Auto Private Auto Private Auto Notes: dressings applied per Ramy Leija LPN today in clinic 08/03/22 08/12/22 14:59 11:07 Wound Care Nurse 3 #1 R giordano Med -Ulcer Cleansing Rinsed/ Irrigated with Saline -Foul Odor after Cleansing No -Primary Dressing Applied NonAdherent Contact Layer -Other Dressing PROMOGRAN -Primary Dressing Covered/Secured with -Other Covering DRSGS PER [place] ASSEMBLY DEPARTMENT SUPERVISOR -Promogran #4 L dorsal foot -Ulcer Cleansing Rinsed/ Rinsed/ Irrigated with Irrigated with Saline Saline -Foul Odor after Cleansing No No -Primary Dressing Applied NonAdherent NonAdherent Contact Layer Contact Layer, Promogran -Other Dressing PROMOGRAN -Primary Dressing Covered/Secured with Dry Gauze Dry Gauze, Secured with Tape -Other Covering DRSG PER [place] ASSEMBLY DEPARTMENT SUPERVISOR Juxta Lite Compression -Promogran 1 -Promogran Yuliya Matter BLE -Multi-Layered Wrap Application Multi-Layer Comp - Bilat ($ ) -Other DRSGS PER [place] ASSEMBLY DEPARTMENT SUPERVISOR Left -Multi-Layered Wrap Application Treatment Response Procedure Procedure Tolerated Well Tolerated Well Vital Signs Temperature (97.8 F-99.1 F) 96.7 F L Temperature Source Temporal Pulse Rate (60-100) 86 Pulse Location Monitor Respiratory Rate (12-18) 16 Respiratory rate source Observation Oxygen Delivery Method Room Air Blood Pressure (90/60-120/80) 162/99 H Blood Pressure Mean (mm Hg) 120 Source Monitor Monitor Position Sitting Blood Pressure Location Right Forearm Pain Scale: 0-10 Numeric Is Patient Pain Free? Yes Yes WC - Visit Discharge Discharge Condition Stable Stable Ambulatory Status Ambulatory, Ambulatory, Walker Walker Transportation Private Auto Notes: Assessment/Plan Assessment/Plan (1) Ulcer of right lower extremity with fat layer exposed: CODE(S): L97.912 - Non-pressure chronic ulcer of unspecified part of right lower leg with fat layer exposed (2) Ulcer of left foot with fat layer exposed: CODE(S): L97.522 - Non-pressure chronic ulcer of other part of left foot with fat layer exposed (3) Morbid obesity: CODE(S): E66.01 - Morbid (severe) obesity due to excess calories (4) Atrial fibrillation: CODE(S): I48.91 - Unspecified atrial fibrillation (5) Lymphedema: CODE(S): I89.0 - Lymphedema, not elsewhere classified PLAN: Plan Debridement done as documented above, procedure was well-tolerated. Minimal area left. Patient would like it healed out. I believe it is okay to. Continue Promogran daily with Adaptic over top for 2 weeks and then stop. Call with any concerns. Continue CircAid's for edema management. Continue lymphe hedy pump at 50 mmHg for 30 minutes at a time for up to 1 hour a day. Continue exercise as tolerated and weight loss. Optimal protein intake which he states that he already does. Vitamin C, D and zinc. His questions were answered and he was advised to call with any further questions or concerns. Discharge from the wound clinic. This note was generated with [employer] dictation software. It may contain incorrect words, spelling, and punctuation that were not noted in checking the note before signing.
== END 2022-08-19 15:10 | disposition home or self-care (01) ==
LOC: WC 10:00
PROVIDERS: Visit Provider Internal Medicine
DX: L97.522 Non-pressure chronic ulcer of other part of left foot with fat layer exposed (principal); L97.812 Non-pressure chronic ulcer of other part of right lower leg with fat layer exposed; I48.91 Unspecified atrial fibrillation; E66.01 Morbid (severe) obesity due to excess calories; Z68.43 Body mass index [BMI] 50.0-59.9, adult; I89.0 Lymphedema, not elsewhere classified; M79.89 Other specified soft tissue disorders
CPT/HCPCS: 11042; 29581; 99213; G0463

== ENCOUNTER 2024-02-20 08:19 | Outpatient (RCR) | payer OTHER, SELFPAY ==
--- NOTE | 2024-02-20 09:48 | HP.PTEVAL ---
Patient's Visit Information Visit Information Visit Information: CASSIDY BELLAMY is a 63 year old M referred to Physical Therapy by Dr. Mark Lyons DO with a diagnosis of Leg weakness. Date of Evaluation: 02/20/24 Physical Therapist: Christophe Dan, JEREMYT, OCS, CSCS Visit Plan Frequency: 2x /Week Duration: 4-6 Weeks Plan: 2x/week for 6 weeks after OT eval for 1. Ensure sink exercises appropriately at home and I with pics for performance on non therapy days(work on these until the vein doctor clears his vein for safety for more aggressiveness) 2. Once sees vein doctor, progress to gym based ex for LE and UE and postural strength adn progress to I. 3. Work on standing balance also and weight shifts.(to help get rollator in front of him safely after sitting on it with less support. Subjective Subjective: Has neuropathy in legs, not sure why, not a diabetic. it is apinful and weak. He has fallen a number of times and ended up in rehab at [facility] until 02/04 and now outpatient therapy. He needs to be stronger. L ankle has vein doctor to hopefully cauterize vein in L ankle and it bleeds alot. Will see vein doctor 03/06. Was walking in the hospital and bedridden at [place] and slowy has gotten some function. Did a lot of sitting stepper which helped. One half step to get into his condo and none at the front door. Uses wh walker rollator with seat due to neuropathy. Had a R quad tear years ago after a fall ont he steps. Live in [facility] with and dtr who is 26. Baix ADLs: dressing I, bathroom I, step in 48 in shower with grab bars. Toilet has grab bars and elevated toilet seat. Is painful with neuroapthy Pain is 7-9/10 feet and sometime up to LB which is degenerated. Is on blood thinner for A-fib. No noticeable pattern to pain. 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 Can do job without a problem. Is on intermittent FMLA. Hobbies: Bul[employer]. No regular exercises standing marching and leg lifts. Wants to join gym eventually. Has hand injuries from falls, wants OT eval for UE weakness and pain in arms. Spine doctor years ago and just degeneration, nothing to do about it. No bowel or bladder problems but dgestion can be weird. Feel two days ago slipping on a piece of ice on the floor. 911 to get up. Mostly when does not have shoes on. He drives without a problem. Pain legs: Pain Intensity (Out of 10): 7 Pain Intensity Range: 0 and 9 Objective Objective: L ankle dressed form vein burst. Large girth on this gentle man subjectively 380#. Walks with rollator walker keeping brakes on and lifting 200 feet taking about 10 minutes mod I with walker, would be uinable safely wihtout it. Stands for 1 minute without hand on walker moving head and closing eyes without LOB but cautious. Does not progress feet without rollator today. Tends to sit on rollator and struggles to get it in front of him to walk due to balance, will need to hold onto something else while moving this. Sit to stand with UE I, unable without them. LE AROM WFL except for R knee ext against gravity which is -18, full extension passivley. UE AROM WFL but stiffness end range of elevation and R shoulder er to 40. reflexes 0/3 patella and achilles Sensation in feet and medial ankles absent to gross light touch. strength is 3+ in DF, PF and inv, ev but poor motor control ankles R>L. knees 3- R knee ext and 4- flexion, L 3+ R knee ext and 4- flexion. Hip flexion 3 B, abd and ext 3 B. Strength UE 3+ elevation, er 3 R and 4- L, IR 4- B. Biceps and triceps 4- B. Will have OT eval on UE and ADLs. Unable to do FGA today. Balance/Special Test Scores Lower Extremity Functional Score: 16 30 Second Chair Rise Test Seconds: 4 Goals Goal 1:: 7 30 sec sit to stand to show improved strength LE Goal Time Frame: 4-6 Weeks Goal 2:: I appropriate gym and home based ex for postural and LE strength/balance Goal Time Frame: 4-6 Weeks Goal 3:: Walk back to treatment area 200 feet in 6 minutes or less and less than 20 on TUG Goal Time Frame: 4-6 Weeks Goal 4:: Pt feel 50% better in overall mobility. Goal Time Frame: 4-6 Weeks Rehabilitation Potential Physical Therapy Diagnosis: Leg weakness Rehabilitation Potential: Questionable Anticipated Interventions Patient/Client Instruction: Educate patient on: Condition and Risk Factors For the Purpose of:: To decrease pain, To decrease swelling/inflammation, To improve nutrient delivery to tissue, To improve muscle performance and motor function, To increase tolerance to activity/condition/position, To improve ability of physical actions for home/community/work/leisure and To improve gait and locomotor functions Therapeutic Exercise to Include: Strength training, Balance training, Postural training and Gait and locomotor training For the Purpose of:: To decrease pain, To increase ROM, To improve nutrient delivery to tissue, To improve muscle performance and motor function, To increase tolerance to activity/condition/position, To improve gait and locomotor functions and To improve safety Text: Thank you for the opportunity to evaluate your patient. For Medicare and Medicare HMO plans, please review the plan of care and approve it. It will need to be FAXED BACK to us at [phone] for Medicare purposes. For Medicare only, by signing this I certify the plan of care. Please let me know if there are questions or concerns regarding this plan of care. Physician Signature: Date:
--- NOTE | 2024-04-19 11:45 | HP.PT.NRP ---
Patient Information Patient Information: CASSIDY BELLAMY was seen in my office for initial evaluation on 02/20/24. The following Plan of Care was established for this patient: POC Established Initial Frequency: 2x /Week Initial Duration: 4-6 Weeks Anticipated Interventions Patient/Client Instruction: Educate patient on: Condition and Risk Factors For the Purpose of:: To decrease pain, To decrease swelling/inflammation, To improve nutrient delivery to tissue, To improve muscle performance and motor function, To increase tolerance to activity/condition/position, To improve ability of physical actions for home/community/work/leisure and To improve gait and locomotor functions Therapeutic Exercise to Include: Strength training, Balance training, Postural training and Gait and locomotor training For the Purpose of:: To decrease pain, To increase ROM, To improve nutrient delivery to tissue, To improve muscle performance and motor function, To increase tolerance to activity/condition/position, To improve gait and locomotor functions and To improve safety Last Seen Last Seen: This patient was last seen in our office 02/20/24. Pertinent comments regarding their Physical therapy will appear below: Pt seen for IE but did not schedule or attend any further visits. at this point, it has been nearly two months and I will discontinue from my care. At this point I will be discontinuing this patient from physical therapy. I would be happy to see this patient again in the future if found appropriate by the physician. Thank you! Christophe Dan, DPT, OCS, CSCS Balance/Gait/Functional tests Balance/Special Test Scores Lower Extremity Functional Score: 16 30 Second Chair Rise Test Seconds: 4
== END 2024-02-20 19:00 | disposition home or self-care (01) ==
LOC: PT 08:19
DX: R29.898 Other symptoms and signs involving the musculoskeletal system (principal); R29.818 Other symptoms and signs involving the nervous system; Z91.81 History of falling; Z78.9 Other specified health status; Z74.09 Other reduced mobility
CPT/HCPCS: 97163

== ENCOUNTER 2024-03-05 15:17 | Emergency (ER) | payer OTHER, SELFPAY ==
[2024-03-05 15:19] VITALS: BP 145/86; PULSE 78; RESP 15; TEMP 36.7; O2SAT 97; BMI 42.7
--- NOTE | 2024-03-05 15:46 | CT_ITS ---
STUDY: CT CERVICAL SPINE WITHOUT CONTRAST REASON FOR EXAM: Male, 63 years old. neck pain RADIATION DOSAGE (If Supplied By Facility): CTDIvol = ( 22.28 ) mGy, DLP = ( 415.25 ) mGycm TECHNIQUE: High resolution transaxial imaging was performed without contrast material. Sagittal and coronal images were reconstructed. Individualized dose optimization techniques were used for this CT. COMPARISON: None FINDINGS: Normal craniovertebral junction. Normal anterior atlantoaxial articulation. Normal odontoid process. Normal cervical lordosis. Normal vertebral bodies and posterior osseous elements. C2-3: Normal endplates. Normal disc height and morphology. Normal central canal and intervertebral neuroforamina. C3-4: Normal endplates. Normal disc height and morphology. Normal central canal and intervertebral neuroforamina. C4-5: Normal endplates. Normal disc height and morphology. Normal central canal and intervertebral neuroforamina. C5-6: Narrowed disc space and mild endplate spurring. Normal central canal. Moderate left neural foraminal stenosis secondary to bony hypertrophy. C6-7: Narrowed disc space and endplate spurring. Normal central canal. Moderate to severe bilateral neural foraminal stenosis secondary to bony hypertrophy. C7-T1: Normal endplates. Normal disc height and morphology. Normal central canal and intervertebral neuroforamina. Normal visualized soft tissue structures. CT/Spine Cervical without Contras IMPRESSION: Moderate spondylosis most severe at C5-6 and C6-7.. No acute fracture or other significant abnormality Electronically Signed: Cullen Mott MD at 16:42 EDT ,
--- NOTE | 2024-03-05 15:46 | CT_ITS ---
STUDY: CT BRAIN WITHOUT CONTRAST REASON FOR EXAM: Male, 63 years old. head injury RADIATION DOSAGE (If Supplied By Facility): CTDIvol = ( 47.06 ) mGy, DLP = ( 925.62 ) mGycm TECHNIQUE: Transaxial CT imaging of the brain was performed without administration of intravenous contrast material. Individualized dose optimization techniques were used for this CT. COMPARISON: No relevant priors. FINDINGS: Normal soft tissue structures. Normal calvarium. Mild cortical atrophy and periventricular white matter ischemic change. Normal basal ganglia and thalami. Normal brainstem. Normal cerebellum. There is no intracranial hemorrhage. There are no findings of an acute ischemic infarction. Mild mucosal thickening of the ethmoid air cells. CT/Brain/Head without Contrast IMPRESSION: Mild cortical atrophy and periventricular white matter ischemic change. No evidence for acute bleed Bilateral ethmoid sinus disease likely chronic.. Electronically Signed: Cullen Mott MD at 16:38 EDT ,
--- NOTE | 2024-03-05 16:01 | ED.VIS.FALL ---
HPI HPI - Fall History of Present Illness Chief Complaint: Fall Narrative Narrative: 63-year-old male presenting with pain in the neck and left shoulder from a fall. States he had this prior to the fall today but he wants to have it evaluated. He states he was in the bathroom cleaning the toilet when he fell over striking his left shoulder. He denies that he actually hit his head but notes he has more neck pain and left shoulder pain today patient is on Eliquis. Patient states he has chronic lower extremity weakness due to severe neuropathy in the lower extremities. He also has varicosity issues and states that he intermittently has bleeding of the varicose veins on the left. He does not have any bleeding currently in the left leg but states that it did bleed previously. He states he supposed to follow-up with somebody from [place] [facility] tomorrow for an appointment. He denies other symptoms currently. Patient request to stay in the hospital overnight so that he can get to his appointment tomorrow at 2 PM because he does not know if he can have a ride back tomorrow. [facility] Medical History Atrial fibrillation Lymphedema Morbid obesity Ulcer of left foot with fat layer exposed Ulcer of left lower extremity with fat layer exposed Ulcer of right foot with fat layer exposed Ulcer of right lower extremity with fat layer exposed Home Medications calcium carbonate,citrate-magnesium oxide 200 mg calcium-50 mg tablet tab PO 04/29/22 [History Last Taken Unknown] ferrous sulfate 325 mg (65 mg iron) tablet 325 mg PO DAILY 04/29/22 [History Last Taken Unknown] furosemide 40 mg tablet (Lasix) 40 mg PO DAILY 04/29/22 [History Last Taken Unknown] gabapentin 600 mg tablet 600 mg PO TID 04/29/22 [History Last Taken Unknown] naproxen 500 mg tablet 500 mg PO BID 04/29/22 [History Last Taken Unknown] potassium chloride 20 mEq tablet,extended release 20 meq PO DAILY 04/29/22 [History Last Taken Unknown] sertraline 100 mg tablet mg BID 04/29/22 [History Last Taken Unknown] warfarin 5 mg tablet 5 mg PO DAILY 04/29/22 [History Last Taken Unknown] Allergy/AdvReac Type Severity Reaction Status Date / Time No Known Allergies Allergy Verified 03/05/24 15:23 Social History Smoking Status: Never smoker ROS ROS ED Constitutional Constitutional ED: Denies chills, fever(s) or sweats Eyes Eyes: Denies blurry vision or change in vision ENT ENT ED: Denies ear pain or sore throat Cardiovascular Cardiovascular: Denies chest pain, palpitations or racing heartbeat Respiratory/Chest Respiratory/Chest: Denies cough, dyspnea or sputum Gastrointestinal Gastrointestinal: Denies abdominal pain, constipation, diarrhea, nausea or vomiting Genitourinary Genitourinary ED: Denies dysuria, hematuria or urinary frequency Musculoskeletal Musculoskeletal: Denies arthralgias, myalgias or neck pain Integumentary Denies abscess, Abrasions or rash Neurologic Neurologic: Denies headache(s), paresthesias or weakness Psychiatric Psychiatric: Denies anxiety, depression, suicidal ideation or suicidal thoughts Endocrine Endocrinology: Denies polydipsia or polyuria EXAM Physical Exam Const Vital Signs: 03/05/24 15:19 03/05/24 15:24 03/05/24 17:18 Temperature 98.1 F Temperature Source Oral Pulse Rate 78 68 Respiratory Rate 15 18 Respiratory Effort Normal Non-Labored Blood Pressure 145/86 H 165/107 H Blood Pressure Mean 105 126 Pulse Ox 97 97 Oxygen Delivery Method Room Air Room Air Room Air Positive well nourished General Appearance ED: NAD HEENT Reports normocephalic atraumatic Eyes PERRL and EOMs intact bilaterally Neck full ROM and no lymphadenopathy Chest Wall inspection of chest normal Resp normal respiratory effort and no retractions Auscultation: Negative for rales, rhonchi or wheezes Cardio regular rate and regular rhythm Back/Spine Back/Spine Narrative: No midline cervical spinal tenderness, deformity, step-off. No reproducible tenderness in the trapezius or in the left shoulder. Patient able to lift his left arm up over his head without any difficulty. No bruising, deformity. No skin discoloration. No increased warmth or cellulitic change Neuro oriented x3 Sensorium / Orientation: alert Psych mental status grossly normal Skin Lesions: no lesions MDM MDM MDM Narrative Medical decision making narrative: Patient presenting after falling in the bathroom. He has chronic lower extremity debility. He had his left arm and states he now has worsening neck pain but does report that he has had this pain prior to the fall. No obvious tenderness to palpation on examination. No deformities. Full range of motion. Given patient's complaint I will obtain a CT of the brain since he is on Eliquis and cervical spine CT will be obtained due to the subjective tingling in the left arm. I will obtain a left shoulder x-ray as he fell on the left shoulder. Patient not receive anything for pain. Patient is requesting to stay in the hospital so he can make it to his appointment tomorrow at 2:[address] Phoenix. I discussed case with Dr. Phoenix and he did not recommend admission for this. He states that if he needs to change his appointment time he can work around his schedule however he needs based on his availability for transport. Patient counseled negative CT brain, cervical spine. Shoulder x-ray on my interpretation of 2 views shows no acute process. Patient counseled on my conversation with Dr. Phoenix is amenable to try to go home. He discussing this with his now for pickup. Discharged stable condition. Impression: 1. Fall 2. Shoulder contusion 3. Cervical strain Lab Data Attestation: I reviewed the patient's lab results. Radiography Diagnostic Testing: Clinical Impression(s) from Imaging Studies Brain CT 03/05/24 15:46 IMPRESSION: Mild cortical atrophy and periventricular white matter ischemic change. No evidence for acute bleed Bilateral ethmoid sinus disease likely chronic.. Electronically Signed: Cullen Mott MD at 16:38 EDT , Cervical Spine CT 03/05/24 15:46 IMPRESSION: Moderate spondylosis most severe at C5-6 and C6-7.. No acute fracture or other significant abnormality Electronically Signed: Cullen Mott MD at 16:42 EDT , Shoulder X-Ray 03/05/24 16:02 IMPRESSION: Degenerative changes. No acute fracture or dislocation Electronically Signed: Cullen Mott MD at 16:43 EDT , Discharge Plan Triage Chief Complaint: Fall ED Provider: Pillo Serrato Dx/Rx/DC Orders Instructions: ED Contusion, Upper Extremity, ED Neck Spasm, No Trauma, ED Fall Prevention Prescriptions: No Action furosemide [Lasix] 40 mg Tablet 40 mg PO DAILY gabapentin 600 mg Tablet 600 mg PO TID sertraline 100 mg Tablet BID ferrous sulfate 325 mg (65 mg iron) Tablet 325 mg PO DAILY warfarin 5 mg Tablet 5 mg PO DAILY naproxen 500 mg Tablet 500 mg PO BID calcium carb and citrat-mag ox 200 mg calcium- 50 mg Tablet PO potassium chloride 20 mEq Tablet Extended Release 20 meq PO DAILY Primary Care Provider: Mark Lyons Referrals: Mark Lyons DO [Primary Care Provider] - Disposition Disposition: Home, Self Care
--- NOTE | 2024-03-05 16:02 | RAD_ITS ---
STUDY: X-RAY - LEFT SHOULDER REASON FOR EXAM: Male, 63 years old. shoulder pain TECHNIQUE: 2 view(s) of the shoulder. COMPARISON: None. FINDINGS: Normal glenohumeral articulation. Narrowed acromioclavicular joint. Normal acromion. Normal humeral head and visualized proximal humerus. The soft tissue structures are unremarkable. Normal visualized pulmonary apex. RAD/Shoulder min 2 Views IMPRESSION: Degenerative changes. No acute fracture or dislocation Electronically Signed: Cullen Mott MD at 16:43 EDT ,
[2024-03-05 17:18] VITALS: BP 165/107; PULSE 68; RESP 18; O2SAT 97
[2024-03-05 18:38] VITALS: BP 156/74; PULSE 85; RESP 18; TEMP 36.8; O2SAT 95
== END 2024-03-05 18:39 | disposition home or self-care (01) ==
PROVIDERS: Emergency Provider Student in an Organized Health Care Education/Training Program; Visit Provider Student in an Organized Health Care Education/Training Program
DX: S40.012A Contusion of left shoulder, initial encounter (principal); S16.1XXA Strain of muscle, fascia and tendon at neck level, initial encounter; W19.XXXA Unspecified fall, initial encounter; Z79.01 Long term (current) use of anticoagulants
CPT/HCPCS: 70450; 72125; 73030; 99282

== ENCOUNTER 2025-03-28 12:00 | Outpatient (RCR) | payer MEDICARE, OTHER, SELFPAY ==
--- NOTE | 2024-12-31 14:11 | HP.PTEVAL_ITS ---
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 Date of Evaluation: 12/31/24 Physical Therapist: Ramana Flores, PT, Cert MDT, OCS Visit Plan Frequency: 2x /Week Duration: 8 weeks Plan: PATIENT USES ROLLATOR W/C PT INTERVENTIONS BLE STRENGTHENING ,POSTURAL EX'S ,CORE STRENGTHENING ,FUNCTIONAL STRENGTHENING ,GAIT AND BALANCE TRAINING Subjective Subjective: This 64 y/o male presents to physical therapy with decreases gait adn weakness. Patient ahs neck and back pain for ,many years. Patient has peripheral neuropathy man years. Patient seen recommended PT.Patient symmetrical lumbar pain and neck pain with weakness in legs. Patient has no recent falls .Patient was in hospital last year and had PT .Patient lives in [facility] with no steps . Patient has walk in shower no seat and grab bars. Patient is able to dress has some difficulty with showing . Patient does cooking. Patient sleeping okay. Patient has multiple comorbities to influence condition. Patient uses rollator . Patient has paresthesia/tingling in legs and hands and feet. .Patient condition affects QOL and function/walking. Patient goals to walk and be more stable . SOCIAL: not supportive Objective Objective: POSTURE: hips/knee flexed knee valgus ,trunk flexed GAIT: nonambulatory ,use rollator as w/c TRANSFERS: difficulty from chair with min assist CERVICAL ROM: min loss flexion ,rotation ,lateral flexion /rotation min.mod loss ,extension min/mod loss BUE: AROM WFL LUMBAR ROM: flexion mod loss ,extension severe loss ,side glides mod loss FLEXABILITY: hamstrings mod tight MMT: ( peak force) quads right 8.8 left 12.9 ,hamstrings right 13.8 ,left 12.9, hip flexion right 15.1.left 12.9 ankle 4-/5 BUE : 4-/5 ,left 3+/5 ,right 3/5 BALANCE: fair - with rollator Special Tests C/S Radiculapathy - Left Upper limb tension test: Negative C/S Radiculapathy - Right Upper limb tension test: Negative C/S Radiculapathy - Left Spurlings: Negative C/S Radiculapathy - Right Spurlings: Negative C/S Radiculapathy - Left Cervical distraction: Negative C/S Radiculapathy - Right Cervical distraction: Negative C/S Radiculapathy - Left Relief test: Negative Sharp Nguyễn: Negative Vertebral Artery Test: Negative Alar Ligament Test: Negative Balance/Special Test Scores Lower Extremity Functional Score: 16 Goals Goal 1:: Patient to be I with HEP for back Goal Time Frame: 4-6 Weeks Goal 2:: Patient to improve peak force quads/hams/hip by 5 # to improve function and gait Goal Time Frame: 4-6 Weeks Goal 3:: Patient to ambulate with rollator 50 ft to improve function mod I Goal Time Frame: 4-6 Weeks Goal 4:: Patient to improve LFES by 5 points to improve function and gait Goal Time Frame: 4-6 Weeks Goal 5:: Patient to demonstrate 40% improvement with function adn ADLS Goal Time Frame: 4-6 Weeks Goal 6:: Patient to transfer from chair with ease mod I Goal Time Frame: 4-6 Weeks Rehabilitation Potential Physical Therapy Diagnosis: This patient has decrease gait ,balance and weakness in legs , uses rollator as w/c , affects ADLS along with chronic pain thus benefit from skilled PT Rehabilitation Potential: Fair Anticipated Interventions Patient/Client Instruction: Educate patient on: Condition and Plan of Care For the Purpose of:: To decrease pain, To increase ROM, To improve muscle performance and motor function, To improve ability to perform ADL's, To increase tolerance to activity/condition/position, To improve ability of physical actions for home/community/work/leisure, To improve health of tissue, To decrease soft tissue restriction, To increase flexibility/ROM and To improve tolerance to ADL's Therapeutic Exercise to Include: Strength training, Endurance training, Balance training, Flexibilty training, Gait and locomotor training and Dynamic Lumbar Stabilization Comment: BLE For the Purpose of:: To decrease pain, To increase ROM, To improve muscle performance and motor function, To improve ability to perform ADL's, To increase tolerance to activity/condition/position, To improve ability of physical actions for home/community/work/leisure, To improve gait and locomotor functions, To increase flexibility/ROM, To improve endurance, To improve balance and To reduce risk of recurrence Text: Thank you for the opportunity to evaluate your patient. For Medicare and Medicare HMO plans, please review the plan of care and approve it. It will need to be FAXED BACK to us at [phone] for Medicare purposes. For Medicare only, by signing this I certify the plan of care. Please let me know if there are questions or concerns regarding this plan of care. Physician Signature: Date:
--- NOTE | 2025-03-07 12:41 | HP.PTREVAL_ITS ---
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 Please see the progress note below for an update on the physical therapy plan of care! Subjective Subjective: Seen Dr 2 weeks problems with constipation . 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 April [address] Objective Objective/Function: Patient benefit from skilled PT to to improve gait and strength with goals appropriate and adjusted POSTURE: hips/knee flexed knee valgus ,trunk flexed GAIT:,use rollator as w/c short distances TRANSFERS: difficulty from chair with min assist CERVICAL ROM: min loss flexion ,rotation ,lateral flexion /rotation min.mod loss ,extension min/mod loss BUE: AROM WFL LUMBAR ROM: flexion mod loss ,extension severe loss ,side glides mod loss FLEXABILITY: hamstrings mod tight MMT: ( peak force) quads right 34.9 , left 40.9 ,hamstrings right 19.8 ,left 17.9, hip flexion right 23.8.left 21.9 ankle 4-/5 BUE : 4-/5 ,left 3+/5 ,right 3/5 BALANCE: fair with rollator Plan Plan Plan: PATIENT USES ROLLATOR W/C PT INTERVENTIONS BLE STRENGTHENING ,POSTURAL EX'S ,CORE STRENGTHENING ,FUNCTIONAL STRENGTHENING ,GAIT AND BALANCE TRAINING Balance/Gait/Functional tests Balance/Special Test Scores Lower Extremity Functional Score: 16 Goals Goals Goal 1:: Patient to be I with HEP for back Goal Time Frame: 4-6 Weeks Goal Progress: Progressing Goal 2:: Patient to improve peak force quads/hams/hip by 5 # to improve function and gait( new goals) Goal Time Frame: 4-6 Weeks Goal Progress: Progressing Goal 3:: Patient to ambulate with rollator 50 ft to improve function mod I Goal Time Frame: 4-6 Weeks Goal Progress: Progressing Goal 4:: Patient to improve LFES by 5 points to improve function and gait Goal Time Frame: 4-6 Weeks Goal Progress: Progressing Goal 5:: Patient to demonstrate 40% improvement with function adn ADLS Goal Time Frame: 4-6 Weeks Goal Progress: Progressing Goal 6:: Patient to transfer from chair with ease mod I Goal Time Frame: 4-6 Weeks Goal Progress: Progressing Anticipated Interventions Anticipated Interventions Patient/Client Instruction: Educate patient on: Condition and Plan of Care For the Purpose of:: To decrease pain, To increase ROM, To improve muscle performance and motor function, To improve ability to perform ADL's, To increase tolerance to activity/condition/position, To improve ability of physical actions for home/community/work/leisure, To improve health of tissue, To decrease soft tissue restriction, To increase flexibility/ROM and To improve tolerance to ADL's Therapeutic Exercise to Include: Strength training, Endurance training, Balance training, Flexibilty training, Gait and locomotor training and Dynamic Lumbar Stabilization Comment: BLE For the Purpose of:: To decrease pain, To increase ROM, To improve muscle performance and motor function, To improve ability to perform ADL's, To increase tolerance to activity/condition/position, To improve ability of physical actions for home/community/work/leisure, To improve gait and locomotor functions, To increase flexibility/ROM, To improve endurance, To improve balance and To reduce risk of recurrence Re-Evaluation Ending Re-evaluation ending: Please do not hesitate to contact me at [phone] by phone or if you have questions or concerns regarding this new plan of care! Sincerely, Ramana Flores PT, Cert MDT, OCS
--- NOTE | 2025-07-24 08:59 | HP.PTDCSUM ---
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 Discharge Date: Please see the following information for a summary of their discharge status. Subjective Subjective: Neuropathy has progressed far worse the last couple weeks, concerned about falling. Not sure why it is happening. Wants to go to [facility] to a specialist to see if anything can change. Pain is 8.5/10 Not having good day, will probably leave early: Pain whole body: Pain Intensity (Out of 10): 8 Overall Improvement % Improvement: 25 Objective Objective/Function: Performed the interventions that patient was able to this session. assisted pt out to vehicle due to patients own safety concerns. Will continue progressing exercises as able. Goals Goal 1:: Patient to be I with HEP for back Goal Progress: Progressing Goal 2:: Patient to improve peak force quads/hams/hip by 5 # to improve function and gait( new goals) Goal Progress: Progressing Goal 3:: Patient to ambulate with rollator 50 ft to improve function mod I Goal Progress: Progressing Goal 4:: Patient to improve LFES by 5 points to improve function and gait Goal Progress: Progressing Goal 5:: Patient to demonstrate 40% improvement with function adn ADLS Goal Progress: Progressing Goal 6:: Patient to transfer from chair with ease mod I Goal Progress: Progressing Plan Plan: PATIENT USES ROLLATOR W/C PT INTERVENTIONS BLE STRENGTHENING ,POSTURAL EX'S ,CORE STRENGTHENING ,FUNCTIONAL STRENGTHENING ,GAIT AND BALANCE TRAINING D/C Information d/c sentence: If there are questions or concerns regarding this patient's physical therapy, please feel free to call me at [phone]. Thank you for the referral of this patient. Sincerely, Ramana Flores, PT, Cert MDT, OCS Balance/Gait/Functional tests Balance/Special Test Scores Lower Extremity Functional Score: 16 Improvement % Improvement: 25
== END 2025-03-28 19:00 | disposition home or self-care (01) ==
LOC: PT 12:00
DX: M47.812 Spondylosis without myelopathy or radiculopathy, cervical region (principal); M47.817 Spondylosis without myelopathy or radiculopathy, lumbosacral region; I89.0 Lymphedema, not elsewhere classified; G60.9 Hereditary and idiopathic neuropathy, unspecified
CPT/HCPCS: 97110; 97116; 97162; 97530